=== PATIENT | female | born 1980 | race African-American/Black ===

== ENCOUNTER 2016-11-18 20:45 | Emergency (ER) | payer OTHER ==
[~2016-11-18] VITALS: Ht 149.9 cm; Wt 55.0 kg
[~2016-11-18 20:45] MED LIST: DICY1TAB26 PO; RANI150T PO; ZOFR4TAB3 PO
[2016-11-18 20:46] VITALS: BP 118/59; PULSE 57; RESP 16; TEMP 98; O2SAT 97
[2016-11-19] MEDS ORDERED: ONDANSETRON HCL 4 MG/2 ML VIAL IV ONE (04:30)
[2016-11-19] MEDS ORDERED: AZITHROMYCIN INJ 500 MG in SODIUM CHLOR 0.9% 250 ML INJ 250 ML IV ONE (04:30)
[2016-11-19] MEDS ORDERED: SODIUM CHLOR 0.9% 1000 ML INJ 1,000 ML IV ONE (04:30)
[2016-11-19] MEDS ORDERED: DOXY100C PO (04:33)
[2016-11-19] MEDS ORDERED: ZOFR4TAB3 SL (04:33)
--- NOTE | 2016-11-19 04:34 | PD ---
HPI Chief Complaint: GI Complaint Time Seen by Provider: 03:18 Travel History International Travel<30 days: No Contact w/Intl Traveler<30days: No Traveled to known affect area: No History of Present Illness HPI The patient is a 36-year-old year old female who presents to the [facility] emergency department with a history of reported nausea and vomiting that began 2 days ago. She reports that one day ago she began to have a right earache, headache over her frontal sinuses, congestion, postnasal drip, and sore throat. The patient reports that she's had vomiting 3 today. She denies having any diarrhea. She denies having any known fevers. She reports that her nasal discharge is yellow in color. The patient denies having any recent neck pain, chest pain, shortness of breath, abdominal pain, diarrhea, urinary symptoms, or neurologic symptoms. LMP between 1 and 2 weeks ago. PFSH Past Medical History Narrative Medical The patient's past medical history is significant for acid reflux, headaches, history of kidney stones, history of ovarian cysts. Hx Anticoagulant Therapy: No Asthma: No Blood Disorders: No Anxiety: No Depression: No Heart Rhythm Problems: No Cancer: No Cardiovascular Problems: No High Cholesterol: No Chemotherapy: No Chest Pain: No Congestive Heart Failure: No COPD: No Cerebrovascular Accident: Yes Diabetes: No Diminished Hearing: No Endocrine: No Gastrointestinal Disorders: Yes GERD: Yes Genitourinary: Yes (KIDNEY INFECTION) Headaches: Yes Hypertension: No Immune Disorder: No Kidney Stones: Yes (Kidney infection) Musculoskeletal: Yes (SURGERY-ORIF OF 4TH METATARSAL) Neurologic: Yes Psychiatric: No Reproductive: Yes Respiratory: No Immunizations Current: Yes Migraines: Yes Myocardial Infarction: No Radiation Therapy: No Sleep Apnea: No Thyroid Disease: Yes Tetanus Vaccination: < 5 Years ?: Not LMP: NOW : 3 Para: 3 Miscarriage: 0 : 0 Ovarian Cysts: Yes Tubal Ligation: Yes Past Surgical History Narrative Surgical The patient's past surgical history is significant for an appendectomy, bilateral tubal ligation, right hand surgery, cholecystectomy. AICD: No Appendectomy: Yes Cholecystectomy: Yes Hysterectomy: No Joint Replacement: No Pacemaker: No Other Surgery: No Social History Alcohol Use: No Tobacco Use: No Substance Use: Yes (POT) Allergies-Medications (Allergen,Severity, Reaction): Coded Allergies: Compazine (Verified Allergy, Severe, LEGS SHAKE, 11/19/16) JITTERY LEGS Contrast Media (Verified Allergy, Severe, ITCHING ALL OVER BODY, 11/19/16) Droperidol (Verified Allergy, Severe, JITTERY, 11/19/16) Keflex (Verified Allergy, Severe, DOESN'T REMEMBER, 11/19/16) Phenergan (Verified Allergy, Severe, JITTERY, 11/19/16) Stadol (Verified Allergy, Severe, jitters, 11/19/16) Toradol (Verified Allergy, Severe, JUMPY, 11/19/16) Penicillin (Verified Allergy, Mild, nausea, 11/19/16) Gantrisin (Verified Adverse Reaction, Severe, N&V, 11/19/16) Gaviscon (Verified Adverse Reaction, Severe, N&V, 11/19/16) Reported Meds & Prescriptions Reported Meds & Active Scripts Active Doxycycline Hyclate 100 Mg Cap 100 Mg PO BID Zofran Odt (Ondansetron Odt) 4 Mg Tab 4 Mg SL Q6HR PRN Narrative Medication She denies being on any medications currently. Review of Systems Except as stated in HPI: all other systems reviewed are Neg General / Constitutional: No: Fever Eyes: No: Drainage, Visual changes HENT: Positive: Headaches, Sore Throat, Rhinorrhea, Congestion, No: Neck Stiffness, Neck Pain Cardiovascular: No: Chest Pain or Discomfort Respiratory: Positive: Cough, No: Shortness of Breath Gastrointestinal: Positive: Nausea, Vomiting, No: Diarrhea, Abdominal Pain, Changes in Bowel Habits, Indigestion, Loss of Appetite Genitourinary: No: Urgency, Frequency, Dysuria, Flank Pain Musculoskeletal: Positive: Myalgias, Pain Skin: No Rash Neurologic: No: Weakness, Focal Abnormalities, Change in Mentation, Slurred Speech, Sensory Disturbance Psychiatric: No: Depression Endocrine: No: Polydipsia Hematologic/Lymphatic: No: Easy Bruising Physical Exam Narrative General: The patient is a well-developed well-nourished female in no acute distress. Head and Neck exam: Head is normocephalic atraumatic. Eyes: Pupils are equal round and reactive to light. Ears: Tympanic membranes bilaterally are pearly with a good cone of light, serous fluid present posterior to the right TM. Nose: Midline septum with erythematous edematous nasal mucosa and a clear nasal discharge. Sinuses are tender on palpation over the frontal sinuses. Mouth: Dentition unremarkable. Moist mucus membranes. Posterior oropharynx is erythematous with tonsillar hypertrophy. No exudates. Uvula midline. Airway patent. Neck: No palpable lymphadenopathy. No nuchal rigidity. No thyromegaly. Cardiovascular: Regular rate and rhythm without murmurs, gallops, or rubs. Lungs: Clear to auscultation bilaterally. No wheezes, rhonchi, or rales. Abdomen: Soft, without tenderness to palpation in all 4 quadrants of the abdomen. No guarding, rebound, or rigidity. Normal bowel sounds are audible. Extremities: No clubbing, cyanosis, or edema. 2+ pulses in all 4 extremities. Back: No spinous process tenderness to palpation. No costovertebral angle tenderness to palpation. Neurologic Exam: Cranial nerves 2-12 were intact on exam. Strength is 5/5 in all 4 extremities. No sensory deficits noted. Skin Exam: No rash noted. Intact skin that is warm and dry. Data Data Last Documented VS Vital Signs Date Time Temp Pulse Resp B/P Pulse Ox O2 Delivery O2 Flow Rate FiO2 11/19/16 05:05 18 11/19/16 05:04 61 115/63 98 Room Air 11/18/16 20:46 98.0 Orders Electrocardiogram (11/19/16 01:09) Complete Blood Count With Diff (11/19/16 04:20) Basic Metabolic Panel (Bmp) (11/19/16 04:20) Urinalysis - C+S If Indicated (11/19/16 04:20) Iv Access Insert/Monitor (11/19/16 04:20) Ecg Monitoring (11/19/16 04:20) Oximetry (11/19/16 04:20) Ed Urine Pregnancytest Poc (11/19/16 04:20) Sodium Chlor 0.9% 1000 Ml Inj (Ns 1000 M (11/19/16 04:30) Ondansetron Inj (Zofran Inj) (11/19/16 04:30) Azithromycin Inj (Zithromax Inj) (11/19/16 04:30) Labs Laboratory Tests Test 11/19/16 11/19/16 04:55 05:45 White Blood Count 6.4 TH/MM3 Red Blood Count 4.06 MIL/MM3 Hemoglobin 12.2 GM/DL Hematocrit 36.4 % Mean Corpuscular Volume 89.8 FL Mean Corpuscular Hemoglobin 30.2 PG Mean Corpuscular Hemoglobin 33.6 % Concent Red Cell Distribution Width 12.4 % Platelet Count 240 TH/MM3 Mean Platelet Volume 9.8 FL Neutrophils (%) (Auto) 55.5 % Lymphocytes (%) (Auto) 36.7 % Monocytes (%) (Auto) 6.4 % Eosinophils (%) (Auto) 1.1 % Basophils (%) (Auto) 0.3 % Neutrophils # (Auto) 3.6 TH/MM3 Lymphocytes # (Auto) 2.4 TH/MM3 Monocytes # (Auto) 0.4 TH/MM3 Eosinophils # (Auto) 0.1 TH/MM3 Basophils # (Auto) 0.0 TH/MM3 CBC Comment AUTO DIFF Differential Comment AUTO DIFF CONFIRMED Platelet Estimate NORMAL Platelet Morphology Comment NORMAL Sodium Level 141 MEQ/L Potassium Level 3.4 MEQ/L Chloride Level 107 MEQ/L Carbon Dioxide Level 28.1 MEQ/L Anion Gap 6 MEQ/L Blood Urea Nitrogen 8 MG/DL Creatinine 0.54 MG/DL Estimat Glomerular Filtration 153 ML/MIN Rate Random Glucose 100 MG/DL Calcium Level 8.0 MG/DL MDM Medical Decision Making Medical Screen Exam Complete: Yes Emergency Medical Condition: Yes Medical Record Reviewed: Yes Differential Diagnosis Viral syndrome, versus acute bacterial sinusitis, versus migraine headache, versus tension headache, versus otitis media Narrative Course During the course of the patients emergency department visit, the patients history, examination, and differential diagnosis were reviewed with the patient. The patient had IV access obtained and blood work sent for analysis. The patient was placed on a boat fueler with oximetry and blood pressure monitoring. The patient was provided normal saline 1 L IV fluid bolus, Zofran 4 mg IV for nausea. The patient was given azithromycin 500 mg IV. The patients laboratory studies were reviewed and remarkable for a CBC that is unremarkable. Basic metabolic profile unremarkable. The patient will be discharged home with a prescription for doxycycline, and Zofran. The patient is resting comfortably and feels better, is alert and in no distress. The patients results and examination findings were discussed with the patient. The repeat examination is unremarkable and benign. The history, exam, diagnostic testing, and current condition do not suggest any significant pathology to warrant further testing, continued ED treatment, admission, or surgical evaluation at this point. The vital signs have been stable. The patient does not have uncontrollable pain, intractable vomiting, or other significant symptoms. The patient's condition is stable and appropriate for discharge. The patient will pursue further outpatient evaluation with a primary care physician or other designated or consulting physician as indicated in the discharge instructions. The patient expressed understanding and was agreeable with this plan. Diagnosis Primary Impression: Acute sinusitis Qualified Code: J01.10 - Acute frontal sinusitis, recurrence not specified Additional Impressions: Acute pharyngitis Qualified Code: J02.9 - Acute pharyngitis, unspecified etiology Vomiting Qualified Code: R11.2 - Non-intractable vomiting with nausea, unspecified vomiting type Referrals: Primary Care Physician 3 days Patient Instructions: Acute Nausea and Vomiting (ED), General Instructions, Sinusitis (ED) Med/Other Pt SpecificInfo: Prescription(s) given Scripts Doxycycline Hyclate 100 Mg Lyp274 Mg PO BID #20 CAP Ref 0 Prov:Nadya Viera MD 11/19/16 Ondansetron Odt (Zofran Odt)4 Mg Tab4 Mg SL Q6HR PRN (Nausea/Vomiting) #10 TAB Ref 0 Prov:Nadya Viera MD 11/19/16 Disposition: 01 DISCHARGE HOME Condition: Stable Nadya Viera MD Nov 19, 2016 04:34
[2016-11-19 05:04] VITALS: BP 115/63; PULSE 61; RESP 18; O2SAT 98
[2016-11-19 05:04] LABS: AUTOMATED NEUTROPHIL # 3.6 TH/MM3 (1.8-7.7); BASOPHIL % 0.3 % (0.0-2.0); EOSINOPHIL # 0.1 TH/MM3 (0-0.4); EOSINOPHIL % 1.1 % (0.0-4.0); HEMATOCRIT 36.4 % (35.0-46.0); LYMPH % 36.7 % (9.0-44.0); LYMPHOCYTE # 2.4 TH/MM3 (1.0-4.8); MEAN CELL VOLUME 89.8 FL (80.0-100.0); MEAN CORPUSCULAR HEMOGLOBIN 30.2 PG (27.0-34.0); MEAN CORPUSCULAR HGB CONC 33.6 % (32.0-36.0); MONO % 6.4 % (0.0-8.0); NEUT % 55.5 % (16.0-70.0); PLATELET COUNT 240 TH/MM3 (150-450); RED BLOOD COUNT 4.06 MIL/MM3 (4.00-5.30); RED CELL DISTRIBUTION WIDTH 12.4 % (11.6-17.2); WHITE BLOOD COUNT 6.4 TH/MM3 (4.0-11.0)
[2016-11-19 05:05] VITALS: RESP 18
[2016-11-19 05:29] LABS: HEMO FLAGS AUTO DIFF; PLATELET ESTIMATE SMEAR NORMAL (NORMAL); PLATELET MORPHOLOGY NORMAL (NORMAL)
[2016-11-19 05:30] LABS: SCAN/DIFF AUTO DIFF CONFIRMED
[2016-11-19 06:22] LABS: BICARBONATE 28.1 MEQ/L (21.0-32.0); POTASSIUM 3.4 MEQ/L (3.5-5.1)
--- NOTE | 2016-11-19 13:57 | EKG ---
Date Performed: 11/19/2016 Time Performed: 01:30:41 PTAGE: 36 years EKG: SINUS BRADYCARDIA BORDERLINE ECG NO PREVIOUS TRACING DOCTOR: Juan Luis Ibarra Interpretating Date/Time 11/19/2016 13:55:37
== END 2016-11-19 06:54 | disposition home or self-care (01) ==
LOC: NEPC 20:45
DX: J01.90 Acute sinusitis, unspecified (principal); J02.9 Acute pharyngitis, unspecified; E07.9 Disorder of thyroid, unspecified; F12.90 Cannabis use, unspecified, uncomplicated
CPT/HCPCS: 80048; 84703; 85025; 93005; 96365; 96375; 99284; J0456; J2405; J7030; J7050

== ENCOUNTER 2016-12-17 22:06 | Emergency (ER) | payer OTHER ==
[~2016-12-17] VITALS: Ht 149.9 cm; Wt 58.0 kg
[~2016-12-17 22:06] MED LIST changes: -DICY1TAB26 PO; +DOXY100C PO; -RANI150T PO; -ZOFR4TAB3 PO; +ZOFR4TAB3 SL
[2016-12-17 22:11] VITALS: BP 100/66; PULSE 71; RESP 16; TEMP 98; O2SAT 99
== END 2016-12-17 23:16 | disposition left against medical advice (07) ==
LOC: NED 22:06
DX: R68.89 Other general symptoms and signs (principal); Z53.21 Procedure and treatment not carried out due to patient leaving prior to being seen by health care provider
CPT/HCPCS: 99281

== ENCOUNTER 2016-12-21 19:59 | Emergency (ER) | payer OTHER ==
[~2016-12-21] VITALS: Ht 149.9 cm; Wt 58.0 kg
[2016-12-21 20:02] VITALS: BP 99/53; PULSE 68; RESP 16; TEMP 97.8; O2SAT 98
[2016-12-21] MEDS ORDERED: SODIUM CHLOR 0.9% 1000 ML INJ 1,000 ML IV SCH (23:25)
[2016-12-21] MEDS ORDERED: SODIUM CHLORIDE 0.9% FLUSH 5 ML FLUSH IVF PRN (23:30)
[2016-12-21] MEDS ORDERED: ONDANSETRON HCL 4 MG/2 ML VIAL IVP ONE (23:30)
[2016-12-21] MEDS ORDERED: diphenhydrAMINE HCL 50 MG/ML VIAL IV PUSH ONE (23:30)
[2016-12-22 00:18] LABS: BASOPHIL % 0.4 % (0.0-2.0); EOSINOPHIL % 0.5 % (0.0-4.0); HEMATOCRIT 40.2 % (35.0-46.0); HEMO FLAGS DIFF FINAL; LYMPH % 41.6 % (9.0-44.0); LYMPHOCYTE # 3.1 TH/MM3 (1.0-4.8); MEAN CELL VOLUME 89.8 FL (80.0-100.0); MEAN CORPUSCULAR HEMOGLOBIN 31.4 PG (27.0-34.0); MEAN CORPUSCULAR HGB CONC 34.9 % (32.0-36.0); MONO % 4.6 % (0.0-8.0); NEUT % 52.9 % (16.0-70.0); PLATELET COUNT 210 TH/MM3 (150-450); RED BLOOD COUNT 4.48 MIL/MM3 (4.00-5.30); RED CELL DISTRIBUTION WIDTH 12.7 % (11.6-17.2); WHITE BLOOD COUNT 7.5 TH/MM3 (4.0-11.0)
[2016-12-22 00:29] LABS: ANION GAP 7 MEQ/L (5-15); AST (GOT) 13 U/L (15-37); BLOOD UREA NITROGEN 11 MG/DL (7-18); CHLORIDE 102 MEQ/L (98-107); GLOMERULAR FILTRATION RATE 113 ML/MIN (>89); POTASSIUM 3.3 MEQ/L (3.5-5.1); SODIUM (NA) 138 MEQ/L (136-145)
[2016-12-22 00:32] LABS: ALKALINE PHOSPHATASE 79 U/L (45-117); ALT (GPT) 17 U/L (10-53); TOTAL BILIRUBIN ADULT 0.3 MG/DL (0.2-1.0)
[2016-12-22 01:16] VITALS: O2SAT 100
[2016-12-22 01:20] VITALS: BP 110/53; PULSE 76; RESP 18; TEMP 98.4; O2SAT 96
[2016-12-22] MEDS ORDERED: diphenhydrAMINE HCL 25 MG CAP PO ONE (01:30)
[2016-12-22 02:00] LABS: BLOOD, URINE NEG (NEG); GLUCOSE,URINE NEG (NEG); KETONE, URINE NEG (NEG); MUCUS URINE FEW /lpf (OCC); NITRITE,URINE NEG (NEG); PH, URINE 6.5 (5.0-8.5); SQUAMOUS EPITHELIAL CELL URINE <1 /hpf (0-5); URINE COLOR YELLOW (YELLW/STRAW)
--- NOTE | 2016-12-22 02:25 | PD ---
HPI Chief Complaint: GI Complaint Time Seen by Provider: 23:21 Travel History International Travel<30 days: No Contact w/Intl Traveler<30days: No Traveled to known affect area: No History of Present Illness HPI Patient is a 36-year-old female presents emergency department for recurrent nausea and vomiting which is been gradually worsening over the past few days. Patient states she has a history of bowel problems including reflux in which case she gets fairly nauseous from. Patient states she's been taking Zofran at home without significant relief. She has not tried anything else that she is allergic to Phenergan and Compazine. Patient denies any abdominal pain and vaginal bleeding vaginal discharge no possibility. Patient was here a few days ago left without being seen. She has not followed up with her primary care physician for the symptoms. PFSH Past Medical History Hx Anticoagulant Therapy: No Asthma: No Blood Disorders: No Anxiety: No Depression: No Heart Rhythm Problems: No Cancer: No Cardiovascular Problems: No High Cholesterol: No Chemotherapy: No Chest Pain: No Congestive Heart Failure: No COPD: No Cerebrovascular Accident: Yes Diabetes: No Diminished Hearing: No Endocrine: No Gastrointestinal Disorders: Yes GERD: Yes Genitourinary: Yes (KIDNEY INFECTION) Headaches: Yes Hypertension: No Immune Disorder: No Kidney Stones: Yes (Kidney infection) Musculoskeletal: Yes (SURGERY-ORIF OF 4TH METATARSAL) Neurologic: Yes Psychiatric: No Reproductive: Yes Respiratory: No Immunizations Current: Yes Migraines: Yes Myocardial Infarction: No Radiation Therapy: No Sleep Apnea: No Thyroid Disease: Yes Tetanus Vaccination: < 5 Years ?: Not LMP: 12/12/16 : 3 Para: 3 Miscarriage: 0 : 0 Ovarian Cysts: Yes Tubal Ligation: Yes Past Surgical History AICD: No Appendectomy: Yes Cholecystectomy: Yes Hysterectomy: No Joint Replacement: No Pacemaker: No Other Surgery: No Social History Alcohol Use: No Tobacco Use: No Substance Use: Yes (POT) Allergies-Medications (Allergen,Severity, Reaction): Coded Allergies: Compazine (Verified Allergy, Severe, LEGS SHAKE, 12/21/16) JITTERY LEGS Contrast Media (Verified Allergy, Severe, ITCHING ALL OVER BODY, 12/21/16) Droperidol (Verified Allergy, Severe, JITTERY, 12/21/16) Keflex (Verified Allergy, Severe, DOESN'T REMEMBER, 12/21/16) Phenergan (Verified Allergy, Severe, JITTERY, 12/21/16) Stadol (Verified Allergy, Severe, jitters, 12/21/16) Toradol (Verified Allergy, Severe, JUMPY, 12/21/16) Penicillin (Verified Allergy, Mild, nausea, 12/21/16) Gantrisin (Verified Adverse Reaction, Severe, N&V, 12/21/16) Gaviscon (Verified Adverse Reaction, Severe, N&V, 12/21/16) Reported Meds & Prescriptions Reported Meds & Active Scripts Active Zofran Odt (Ondansetron Odt) 4 Mg Tab 4 Mg SL Q6HR PRN Review of Systems Except as stated in HPI: all other systems reviewed are Neg Physical Exam Narrative GENERAL: Well-developed well-nourished no apparent distressIN: Warm and dry. HEAD: Atraumatic. Normocephalic. EYES: Pupils equal and round. No scleral icterus. No injection or drainage. ENT: No nasal bleeding or discharge. Mucous membranes pink and moist. NECK: Trachea midline. No JVD. CARDIOVASCULAR: Regular rate and rhythm. No murmur appreciated. RESPIRATORY: No accessory muscle use. Clear to auscultation. Breath sounds equal bilaterally. GASTROINTESTINAL: Abdomen soft, non-tender, nondistended. Hepatic and splenic margins not palpable. MUSCULOSKELETAL: No obvious deformities. No clubbing. No cyanosis. No edema. NEUROLOGICAL: Awake and alert. No obvious cranial nerve deficits. Motor grossly within normal limits. Normal speech. PSYCHIATRIC: Appropriate mood and affect; insight and judgment normal. Data Data Last Documented VS Vital Signs Date Time Temp Pulse Resp B/P Pulse Ox O2 Delivery O2 Flow Rate FiO2 12/22/16 01:20 98.4 76 18 110/53 96 Room Air Orders Complete Blood Count With Diff (12/21/16 23:25) Comprehensive Metabolic Panel (12/21/16 23:25) Lipase (12/21/16 23:25) Ua Includes Microscopic (12/21/16 23:25) Iv Access Insert/Monitor (12/21/16 23:25) Ecg Monitoring (12/21/16 23:25) Oximetry (12/21/16 23:25) Ondansetron Inj (Zofran Inj) (12/21/16 23:30) Sodium Chlor 0.9% 1000 Ml Inj (Ns 1000 M (12/21/16 23:25) Sodium Chloride 0.9% Flush (Ns Flush) (12/21/16 23:30) Electrocardiogram (12/21/16 23:25) Ed Urine Pregnancytest Poc (12/21/16 23:25) Diphenhydramine Inj (Benadryl Inj) (12/21/16 23:30) Cath For Specimen (12/22/16 00:59) Diphenhydramine (Benadryl) (12/22/16 01:30) Labs Laboratory Tests Test 12/21/16 12/22/16 23:30 01:35 White Blood Count 7.5 TH/MM3 Red Blood Count 4.48 MIL/MM3 Hemoglobin 14.1 GM/DL Hematocrit 40.2 % Mean Corpuscular Volume 89.8 FL Mean Corpuscular Hemoglobin 31.4 PG Mean Corpuscular Hemoglobin 34.9 % Concent Red Cell Distribution Width 12.7 % Platelet Count 210 TH/MM3 Mean Platelet Volume 9.1 FL Neutrophils (%) (Auto) 52.9 % Lymphocytes (%) (Auto) 41.6 % Monocytes (%) (Auto) 4.6 % Eosinophils (%) (Auto) 0.5 % Basophils (%) (Auto) 0.4 % Neutrophils # (Auto) 4.0 TH/MM3 Lymphocytes # (Auto) 3.1 TH/MM3 Monocytes # (Auto) 0.3 TH/MM3 Eosinophils # (Auto) 0.0 TH/MM3 Basophils # (Auto) 0.0 TH/MM3 CBC Comment DIFF FINAL Differential Comment Sodium Level 138 MEQ/L Potassium Level 3.3 MEQ/L Chloride Level 102 MEQ/L Carbon Dioxide Level 29.0 MEQ/L Anion Gap 7 MEQ/L Blood Urea Nitrogen 11 MG/DL Creatinine 0.70 MG/DL Estimat Glomerular Filtration 113 ML/MIN Rate Random Glucose 99 MG/DL Calcium Level 9.8 MG/DL Total Bilirubin 0.3 MG/DL Aspartate Amino Transf 13 U/L (AST/SGOT) Alanine Aminotransferase 17 U/L (ALT/SGPT) Alkaline Phosphatase 79 U/L Total Protein 7.8 GM/DL Albumin 4.2 GM/DL Lipase 143 U/L Urine Color YELLOW Urine Turbidity CLEAR Urine pH 6.5 Urine Specific [place] 1.015 Urine Protein NEG mg/dL Urine Glucose (UA) NEG mg/dL Urine Ketones NEG mg/dL Urine Occult Blood NEG Urine Nitrite NEG Urine Bilirubin NEG Urine Urobilinogen LESS THAN 2.0 MG/DL Urine Leukocyte Esterase NEG Urine RBC LESS THAN 1 /hpf Urine WBC LESS THAN 1 /hpf Urine Squamous Epithelial <1 /hpf Cells Urine Mucus FEW /lpf MDM Medical Decision Making Medical Screen Exam Complete: Yes Emergency Medical Condition: Yes Differential Diagnosis Nausea vomiting, cyclic vomiting syndrome, reflux, ulcers, . Narrative Course Patient was roomed in the emergency department, she appears well in no apparent distress. She was given Zofran as well as Benadryl for nausea control. Patient did have some pruritus after these medicines and she was given an additional dose of Benadryl by mouth. On my revisit she is scratching but is protecting her airway and has no rash. She requests discharge. CBC BMP urine test and urinalysis are all reassuring. Discussed with her need follow-up primary care physician and return to ED criteria. Diagnosis Primary Impression: Nausea Disposition: 01 DISCHARGE HOME Condition: Stable Mo Holguin MD Dec 22, 2016 02:25
--- NOTE | 2016-12-22 13:02 | EKG ---
Date Performed: 12/21/2016 Time Performed: 23:52:57 PTAGE: 36 years EKG: SINUS BRADYCARDIA LOW QRS VOLTAGE IN PRECORDIAL LEADS BORDERLINE ECG Compared to prior trac ing no significant change PREVIOUS TRACING : 11/19/2016 01.30 DOCTOR: Jorge Wynn Interpretating Date/Time 12/22/2016 12:56:59
== END 2016-12-22 03:31 | disposition home or self-care (01) ==
LOC: NEPE 19:59
DX: F12.90 Cannabis use, unspecified, uncomplicated (principal); R11.0 Nausea; R94.31 Abnormal electrocardiogram [ECG] [EKG]
CPT/HCPCS: 80053; 81001; 83690; 84703; 85025; 93005; 96361; 96374; 96375; 99284; J1200; J2405; J7030; P9612

== ENCOUNTER 2017-02-26 18:08 | Emergency (ER) | payer OTHER ==
[~2017-02-26] VITALS: Ht 149.9 cm; Wt 58.0 kg
[~2017-02-26 18:08] MED LIST changes: -DOXY100C PO
[2017-02-26 18:10] VITALS: BP 113/69; PULSE 86; RESP 16; TEMP 97.8; O2SAT 100
--- NOTE | 2017-02-26 18:17 | PD ---
Physical Exam Date Seen by Provider: Feb 26, 2017 Time Seen by Provider: 18:13 Narrative Pt is a 36 year old female presenting to the ED with c/o nausea and vomiting and epigastric abdominal pain. She attributed it to eating pasta with sauce 2 days ago. Symptoms do not usually last this long. Her grandson has also had similar symptoms. Pt is followed by Dr. Derick Rosenthal. VSS. Awaiting bed placement. Data Data Last Documented VS Vital Signs Date Time Temp Pulse Resp B/P Pulse Ox O2 Delivery O2 Flow Rate FiO2 02/26/17 18:10 97.8 86 16 113/69 100 Room Air [facility] Supervised Visit with LISA: Kailey Millan Feb 26, 2017 18:17
--- NOTE | 2017-02-26 18:39 | PD ---
HPI . nausea for 2 days Chief Complaint: GI Complaint Time Seen by Provider: 18:35 Travel History International Travel<30 days: No Contact w/Intl Traveler<30days: No Traveled to known affect area: No History of Present Illness HPI 36-year-old female with history of acid reflux here with complaints of nausea and occasional vomiting for the past 2 days. Patient says that she is not supposed to eat spaghetti, but did that 2 days ago and has had nausea ever since. She complains of intermittent nausea and vomiting. She usually takes Zofran for her nausea but recently ran out this morning at 8 AM. Since then she 's had a few episodes of vomiting that she reports is just water because she had recently drank some. She denies any abdominal pain, diarrhea or other GI issues. She denies any chest pain or other symptoms. She needs a refill on her zofran. She does not complain of any throat pain etc. Her only complaint when I examined her is nausea and intermittent vomiting. PFSH Past Medical History Hx Anticoagulant Therapy: No Asthma: No Blood Disorders: No Anxiety: No Depression: No Heart Rhythm Problems: No Cancer: No Cardiovascular Problems: No High Cholesterol: No Chemotherapy: No Chest Pain: No Congestive Heart Failure: No COPD: No Cerebrovascular Accident: Yes Diabetes: No Diminished Hearing: No Endocrine: No Gastrointestinal Disorders: Yes GERD: Yes Genitourinary: Yes (KIDNEY INFECTION) Headaches: Yes Hypertension: No Immune Disorder: No Kidney Stones: Yes (Kidney infection) Musculoskeletal: Yes (SURGERY-ORIF OF 4TH METATARSAL) Neurologic: Yes Psychiatric: No Reproductive: Yes Respiratory: No (NON SMOKER) Immunizations Current: Yes Migraines: Yes Myocardial Infarction: No Radiation Therapy: No Sleep Apnea: No Thyroid Disease: Yes ?: Not LMP: 25 FEBRUARY 2017 : 3 Para: 3 Miscarriage: 0 : 0 Ovarian Cysts: Yes Tubal Ligation: Yes Past Surgical History AICD: No Appendectomy: Yes Cholecystectomy: Yes Hysterectomy: No Joint Replacement: No Pacemaker: No Other Surgery: No Social History Alcohol Use: No Tobacco Use: No Substance Use: Yes (POT) Allergies-Medications (Allergen,Severity, Reaction): Coded Allergies: Compazine (Verified Allergy, Severe, LEGS SHAKE, 02/26/17) JITTERY LEGS Contrast Media (Verified Allergy, Severe, ITCHING ALL OVER BODY, 02/26/17) Droperidol (Verified Allergy, Severe, JITTERY, 02/26/17) Keflex (Verified Allergy, Severe, DOESN'T REMEMBER, 02/26/17) Phenergan (Verified Allergy, Severe, JITTERY, 02/26/17) Stadol (Verified Allergy, Severe, jitters, 02/26/17) Toradol (Verified Allergy, Severe, JUMPY, 02/26/17) Penicillin (Verified Allergy, Mild, nausea, 02/26/17) Gantrisin (Verified Adverse Reaction, Severe, N&V, 02/26/17) Gaviscon (Verified Adverse Reaction, Severe, N&V, 02/26/17) Reported Meds & Prescriptions Reported Meds & Active Scripts Active Zofran Odt (Ondansetron Odt) 4 Mg Tab 4 Mg SL Q8HR PRN Zofran Odt (Ondansetron Odt) 4 Mg Tab 4 Mg SL Q6HR PRN Review of Systems General / Constitutional: No: Fever Eyes: No: Visual changes HENT: No: Headaches Cardiovascular: No: Chest Pain or Discomfort Respiratory: No: Shortness of Breath Gastrointestinal: Positive: Nausea, No: Abdominal Pain Genitourinary: No: Dysuria Musculoskeletal: No: Pain Skin: No Rash Neurologic: No: Weakness Psychiatric: No: Depression Endocrine: No: Polydipsia Hematologic/Lymphatic: No: Easy Bruising Physical Exam Narrative GENERAL: AAO x 3, no acute distress, Well-nourished, well-developed patient. SKIN: Warm and dry. No visible rashes or bruising. Skin turgor within normal limits HEAD: Normocephalic and atraumatic. EYES: No scleral icterus. No injection or drainage. EOM intact, PERRLA ENT: No nasal drainage noted. Mucous membranes pink. Airway patent. Moist mucous membranes. Posterior pharynx normal. NECK: Supple, trachea midline. No JVD. CARDIOVASCULAR: Regular rate and rhythm without murmurs, gallops, or rubs. RESPIRATORY: Breath sounds equal bilaterally. No accessory muscle use. No rhonchi or rales. GASTROINTESTINAL: Abdomen soft, non-tender, nondistended. EXTREMITIES: No cyanosis or edema. BACK: Nontender without obvious deformity. No CVA tenderness. PSYCH: AAO x 3, normal affect. Data Data Last Documented VS Vital Signs Date Time Temp Pulse Resp B/P Pulse Ox O2 Delivery O2 Flow Rate FiO2 02/26/17 18:10 97.8 86 16 113/69 100 Room Air Orders Ondansetron Inj (Zofran Inj) (02/26/17 18:45) MDM Medical Decision Making Medical Screen Exam Complete: Yes Emergency Medical Condition: Yes Medical Record Reviewed: Yes Differential Diagnosis Nausea, reflux, less likely acute abdomen Narrative Course 36-year-old female with history of acid reflux here with complaints of nausea and occasional vomiting for the past 2 days. Patient says that she is not supposed to eat spaghetti, but did that 2 days ago and has had nausea ever since. She complains of intermittent nausea and vomiting. She usually takes Zofran for her nausea but recently ran out this morning at 8 AM. Since then she 's had a few episodes of vomiting that she reports is just water because she had recently drank some. She denies any abdominal pain, diarrhea or other GI issues. She denies any chest pain or other symptoms. She needs a refill on her zofran. Patient seen and examined. Exam is unremarkable. She does not have any signs of any acute intra-abdominal issues. There is no evidence of dehydration. I recommend some Zofran in the emergency department. I will provide her with a refill of Zofran upon discharge. I discussed my plan with her and she is in agreement. Advise follow-up with primary care provider. Patient verbalized understanding of instructions, questions were answered, and thanked me for their care. I advised them if their condition worsens, please return to the nearest emergency room for further care. Diagnosis Primary Impression: Nausea Patient Instructions: General Instructions Additional Instructions: Please return to emergency department if your symptoms return or worsen. Follow up with your primary care provider. Take medications as prescribed. Med/Other Pt SpecificInfo: Prescription(s) given Scripts Ondansetron Odt (Zofran Odt)4 Mg Tab4 Mg SL Q8HR PRN (Nausea/Vomiting) #15 TAB Ref 0 Prov:Mo Holguin MD 02/26/17 Disposition: 01 DISCHARGE HOME Condition: Stable Leyda Ovalles Feb 26, 2017 18:39 Leyda Ovalles Feb 26, 2017 18:39
[2017-02-26] MEDS ORDERED: ZOFR4TAB3 SL (18:44)
[2017-02-26] MEDS ORDERED: ONDANSETRON HCL 4 MG/2 ML VIAL IM ONE (18:45)
== END 2017-02-26 19:07 | disposition home or self-care (01) ==
LOC: NEPK 18:08
DX: R11.2 Nausea with vomiting, unspecified (principal); K21.9 Gastro-esophageal reflux disease without esophagitis; Z86.73 Personal history of transient ischemic attack (TIA), and cerebral infarction without residual deficits
CPT/HCPCS: 96372; 99283; J2405

== ENCOUNTER 2017-03-17 20:56 | Emergency (ER) | payer OTHER ==
[~2017-03-17] VITALS: Ht 167.6 cm; Wt 65.0 kg
[2017-03-17 20:58] VITALS: BP 94/55; PULSE 75; RESP 16; TEMP 98.6; O2SAT 98
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
[2017-03-17] MEDS ORDERED: ONDANSETRON ODT 4 MG TAB PO ONE (22:00)
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
[2017-03-17] MEDS ORDERED: SODIUM CHLOR 0.9% 1000 ML INJ 1,000 ML IV ONE (22:30)
[2017-03-17] MEDS ORDERED: diphenhydrAMINE HCL 50 MG/ML VIAL IV PUSH ONE (22:30)
[2017-03-17] MEDS ORDERED: METOCLOPRAMIDE HCL 10 MG/2 ML VIAL IV PUSH ONE (22:30)
== END 2017-03-18 00:51 | disposition home or self-care (01) ==
LOC: NEPD 20:56
DX: S60.221A Contusion of right hand, initial encounter (principal); R11.2 Nausea with vomiting, unspecified; W22.8XXA Striking against or struck by other objects, initial encounter
CPT/HCPCS: 73130; 96361; 96374; 96375; 99284; J1200; J2765; J7030

== ENCOUNTER 2017-03-20 17:13 | Emergency (ER) | payer OTHER ==
[~2017-03-20] VITALS: Ht 149.9 cm; Wt 58.0 kg
[2017-03-20 17:16] VITALS: BP 129/63; PULSE 84; RESP 20; TEMP 98.9; O2SAT 97
--- NOTE | 2017-03-20 19:38 | PD ---
HPI Chief Complaint: GI Complaint Time Seen by Provider: 19:38 Travel History International Travel<30 days: No Contact w/Intl Traveler<30days: No Traveled to known affect area: No History of Present Illness HPI 36 year-old female presents to the emergency department for evaluation nausea and vomiting. Patient states this has been ongoing for the last 5 days. Patient has been seen several times in the emergency department for evaluation of nausea and vomiting, diagnosis of gastritis. Patient has been worked out patient for this by gastroenterology. She states she's had her appendix removed as well as her gallbladder. She reports absolutely no abdominal pain area patient was here 2 days ago and was given Reglan which helped alleviate her symptoms for the remainder of the day. She denies any hematemesis. No bowel or bladder symptoms. She does smoke marijuana regularly. She has no symptoms to report. PFSH Past Medical History Hx Anticoagulant Therapy: No Asthma: No Blood Disorders: No Anxiety: No Depression: No Heart Rhythm Problems: No Cancer: No Cardiovascular Problems: No High Cholesterol: No Chemotherapy: No Chest Pain: No Congestive Heart Failure: No COPD: No Cerebrovascular Accident: Yes Diabetes: No Diminished Hearing: No Endocrine: No Gastrointestinal Disorders: Yes GERD: Yes Genitourinary: Yes (KIDNEY INFECTION) Headaches: Yes Hypertension: No Immune Disorder: No Kidney Stones: Yes (Kidney infection) Musculoskeletal: Yes (SURGERY-ORIF OF 4TH METATARSAL) Neurologic: Yes Psychiatric: No Reproductive: Yes Immunizations Current: Yes Migraines: Yes Myocardial Infarction: No Radiation Therapy: No Sleep Apnea: No Thyroid Disease: Yes ?: Not LMP: 03/20/17 : 3 Para: 3 Miscarriage: 0 : 0 Ovarian Cysts: Yes Tubal Ligation: Yes Past Surgical History AICD: No Appendectomy: Yes Cholecystectomy: Yes Hysterectomy: No Joint Replacement: No Pacemaker: No Other Surgery: No Social History Alcohol Use: No Tobacco Use: No Substance Use: Yes (POT) Allergies-Medications (Allergen,Severity, Reaction): Coded Allergies: Compazine (Verified Allergy, Severe, LEGS SHAKE, 03/20/17) JITTERY LEGS Contrast Media (Verified Allergy, Severe, ITCHING ALL OVER BODY, 03/20/17) Droperidol (Verified Allergy, Severe, JITTERY, 03/20/17) Keflex (Verified Allergy, Severe, DOESN'T REMEMBER, 03/20/17) Phenergan (Verified Allergy, Severe, JITTERY, 03/20/17) Stadol (Verified Allergy, Severe, jitters, 03/20/17) Toradol (Verified Allergy, Severe, JUMPY, 03/20/17) Penicillin (Verified Allergy, Mild, nausea, 03/20/17) Gantrisin (Verified Adverse Reaction, Severe, N&V, 03/20/17) Gaviscon (Verified Adverse Reaction, Severe, N&V, 03/20/17) Reported Meds & Prescriptions Reported Meds & Active Scripts Active Zofran Odt (Ondansetron Odt) 4 Mg Tab 4 Mg SL Q6HR PRN Review of Systems Except as stated in HPI: all other systems reviewed are Neg Physical Exam Narrative GENERAL: Well-nourished female patient, ambulatory and in no acute distress SKIN: Focused skin assessment warm/dry. HEAD: Atraumatic. Normocephalic. EYES: Pupils equal and round. No scleral icterus. No injection or drainage. ENT: No nasal bleeding or discharge. Mucous membranes pink and moist. NECK: Trachea midline. No JVD. CARDIOVASCULAR: Regular rate and rhythm. No murmur appreciated. RESPIRATORY: No accessory muscle use. Clear to auscultation. Breath sounds equal bilaterally. GASTROINTESTINAL: Abdomen soft, non-tender, nondistended. Hepatic and splenic margins not palpable. MUSCULOSKELETAL: No obvious deformities. No clubbing. No cyanosis. No edema. Florencio bandage on the right hand. NEUROLOGICAL: Awake and alert. No obvious cranial nerve deficits. Motor grossly within normal limits. Normal speech. PSYCHIATRIC: Appropriate mood and affect; insight and judgment normal. Data Data Last Documented VS Vital Signs Date Time Temp Pulse Resp B/P Pulse Ox O2 Delivery O2 Flow Rate FiO2 03/20/17 17:16 98.9 84 20 129/63 97 Room Air Orders Iv Access Insert/Monitor (03/20/17 19:37) Complete Blood Count With Diff (03/20/17 19:37) Comprehensive Metabolic Panel (03/20/17 19:37) Lipase (03/20/17 19:37) Urinalysis - C+S If Indicated (03/20/17 19:37) Ed Urine Pregnancytest Poc (03/20/17 19:37) Sodium Chlor 0.9% 1000 Ml Inj (Ns 1000 M (03/20/17 19:45) Ondansetron Inj (Zofran Inj) (03/20/17 19:45) Metoclopramide Inj (Reglan Inj) (03/20/17 19:45) Diphenhydramine Inj (Benadryl Inj) (03/20/17 19:45) MDM Medical Decision Making Medical Screen Exam Complete: Yes Emergency Medical Condition: Yes Medical Record Reviewed: Yes Differential Diagnosis nausea vomiting versus gastritis versus esophagitis versus cannabinoid induced gastroparesis Narrative Course 36 year-old female presents to the emergency department for evaluation nausea and vomiting. Patient appears without distress. She has been vomiting here in the emergency department. Abdominal exam is benign. Patient is given IV fluid , Reglan, Zofran, Benadryl. Lab work is sent as the patient has had continuous nausea and vomiting for electrolyte evaluation. Pending no acute lab abnormality and resolution of symptoms here in the emergency department, patient will be discharged home to follow-up outpatient with primary care provider and hospital cleaner. Diagnosis Primary Impression: Nausea & vomiting Qualified Code: R11.2 - Nausea and vomiting, intractability of vomiting not specified, unspecified vomiting type Referrals: Mechanical Design Technician Primary Care Physician Patient Instructions: Diet for Ulcers and Gastritis (ED), Gastritis (ED), General Instructions Additional Instructions: Follow-up with a primary care provider Seek gastroenterology avoid acidic and abrasive foods Return immediately with any acute worsening symptoms Med/Other Pt SpecificInfo: Prescription(s) given Scripts Metoclopramide (Reglan)10 Mg Tab10 Mg PO QID PRN (NAUSEA OR VOMITING) #20 TAB Ref 0 Prov:Khadra Ocampo 03/20/17 Disposition: 01 DISCHARGE HOME Condition: Stable Khadra Ocampo March 20, 2017 19:38
[2017-03-20] MEDS ORDERED: ONDANSETRON HCL 4 MG/2 ML VIAL IV PUSH ONE (19:45)
[2017-03-20] MEDS ORDERED: diphenhydrAMINE HCL 50 MG/ML VIAL IV PUSH ONE (19:45)
[2017-03-20] MEDS ORDERED: SODIUM CHLOR 0.9% 1000 ML INJ 1,000 ML IV ONE ×2 (19:45→20:30)
[2017-03-20] MEDS ORDERED: METOCLOPRAMIDE HCL 10 MG/2 ML VIAL IV PUSH ONE (19:45)
[2017-03-20] MEDS ORDERED: REGL10TA5 PO (20:14)
--- NOTE | 2017-03-20 20:39 | PD ---
Physical Exam Date Seen by Provider: March 20, 2017 Data Data Last Documented VS Vital Signs Date Time Temp Pulse Resp B/P Pulse Ox O2 Delivery O2 Flow Rate FiO2 03/20/17 17:16 98.9 84 20 129/63 97 Room Air Orders Iv Access Insert/Monitor (03/20/17 19:37) Complete Blood Count With Diff (03/20/17 19:37) Comprehensive Metabolic Panel (03/20/17 19:37) Lipase (03/20/17 19:37) Urinalysis - C+S If Indicated (03/20/17 19:37) Ed Urine Pregnancytest Poc (03/20/17 19:37) Sodium Chlor 0.9% 1000 Ml Inj (Ns 1000 M (03/20/17 19:45) Ondansetron Inj (Zofran Inj) (03/20/17 19:45) Metoclopramide Inj (Reglan Inj) (03/20/17 19:45) Diphenhydramine Inj (Benadryl Inj) (03/20/17 19:45) Sodium Chlor 0.9% 1000 Ml Inj (Ns 1000 M (03/20/17 20:30) Potassium Chloride Eff (K-Lyte Cl Eff) (03/20/17 22:00) Labs Laboratory Tests Test 03/20/17 03/20/17 20:30 20:40 White Blood Count 4.7 TH/MM3 Red Blood Count 4.47 MIL/MM3 Hemoglobin 13.4 GM/DL Hematocrit 39.8 % Mean Corpuscular Volume 88.9 FL Mean Corpuscular Hemoglobin 30.0 PG Mean Corpuscular Hemoglobin 33.8 % Concent Red Cell Distribution Width 12.7 % Platelet Count 189 TH/MM3 Mean Platelet Volume 8.4 FL Neutrophils (%) (Auto) 52.6 % Lymphocytes (%) (Auto) 37.0 % Monocytes (%) (Auto) 8.5 % Eosinophils (%) (Auto) 1.4 % Basophils (%) (Auto) 0.5 % Neutrophils # (Auto) 2.5 TH/MM3 Lymphocytes # (Auto) 1.7 TH/MM3 Monocytes # (Auto) 0.4 TH/MM3 Eosinophils # (Auto) 0.1 TH/MM3 Basophils # (Auto) 0.0 TH/MM3 CBC Comment DIFF FINAL Differential Comment Sodium Level 139 MEQ/L Potassium Level 3.4 MEQ/L Chloride Level 101 MEQ/L Carbon Dioxide Level 30.3 MEQ/L Anion Gap 8 MEQ/L Blood Urea Nitrogen 7 MG/DL Creatinine 0.67 MG/DL Estimat Glomerular Filtration 119 ML/MIN Rate Random Glucose 85 MG/DL Calcium Level 8.9 MG/DL Total Bilirubin 0.3 MG/DL Aspartate Amino Transf 23 U/L (AST/SGOT) Alanine Aminotransferase 29 U/L (ALT/SGPT) Alkaline Phosphatase 104 U/L Total Protein 8.0 GM/DL Albumin 3.9 GM/DL Lipase 130 U/L Urine Color LIGHT-YELLOW Urine Turbidity CLEAR Urine pH 7.5 Urine Specific [place] 1.008 Urine Protein NEG mg/dL Urine Glucose (UA) NEG mg/dL Urine Ketones NEG mg/dL Urine Occult Blood NEG Urine Nitrite NEG Urine Bilirubin NEG Urine Urobilinogen LESS THAN 2.0 MG/DL Urine Leukocyte Esterase NEG Urine WBC 1 /hpf Urine Squamous Epithelial <1 /hpf Cells Microscopic Urinalysis Comment CULT NOT INDICATED MDM Medical Record Reviewed: Yes Supervised Visit with LISA: Yes Interpretation(s) Vital Signs Date Time Temp Pulse Resp B/P Pulse Ox O2 Delivery O2 Flow Rate FiO2 03/20/17 17:16 98.9 84 20 129/63 97 Room Air CBC & BMP Diagram 03/20/17 20:30 Narrative Course I, Dr. Boudreaux, have reviewed the advance practice practitioner's documentation and am in agreement, met with the patient face to face, made the diagnosis, and the medical decision making was done by me. *My assessment and Findings: Patient is a 36-year-old female who presents to emergency room with complaints of nausea, vomiting for the past 5 days. Patient reports that she has history of "abdominal issues" for the past few years and she does see a plasterer foreman. Patient reports that for the past 5 days, she has not been able to keep anything down. Patient reports no abdominal pain, reports that she is just nauseous and has been vomiting. Patient does have an appointment with her plasterer foreman next week, reports "i just can't keep anything down. " Patient is nontoxic on evaluation, patient with no abdominal pain, abdomen is soft, nontender, nondistended, no peritoneal signs. Patient with most likely gastroenteritis versus gastritis. Labs ordered to evaluate for electrolyte abnormality, plan to hydrate patient and give antiemetics. Laboratory Tests Test 03/20/17 03/20/17 20:30 20:40 White Blood Count 4.7 TH/MM3 (4.0-11.0) Red Blood Count 4.47 MIL/MM3 (4.00-5.30) Hemoglobin 13.4 GM/DL (11.6-15.3) Hematocrit 39.8 % (35.0-46.0) Mean Corpuscular Volume 88.9 FL (80.0-100.0) Mean Corpuscular Hemoglobin 30.0 PG (27.0-34.0) Mean Corpuscular Hemoglobin 33.8 % Concent (32.0-36.0) Red Cell Distribution Width 12.7 % (11.6-17.2) Platelet Count 189 TH/MM3 (150-450) Mean Platelet Volume 8.4 FL (7.0-11.0) Neutrophils (%) (Auto) 52.6 % (16.0-70.0) Lymphocytes (%) (Auto) 37.0 % (9.0-44.0) Monocytes (%) (Auto) 8.5 % (0.0-8.0) Eosinophils (%) (Auto) 1.4 % (0.0-4.0) Basophils (%) (Auto) 0.5 % (0.0-2.0) Neutrophils # (Auto) 2.5 TH/MM3 (1.8-7.7) Lymphocytes # (Auto) 1.7 TH/MM3 (1.0-4.8) Monocytes # (Auto) 0.4 TH/MM3 (0-0.9) Eosinophils # (Auto) 0.1 TH/MM3 (0-0.4) Basophils # (Auto) 0.0 TH/MM3 (0-0.2) CBC Comment DIFF FINAL Differential Comment Sodium Level 139 MEQ/L (136-145) Potassium Level 3.4 MEQ/L (3.5-5.1) Chloride Level 101 MEQ/L (98-107) Carbon Dioxide Level 30.3 MEQ/L (21.0-32.0) Anion Gap 8 MEQ/L (5-15) Blood Urea Nitrogen 7 MG/DL (7-18) Creatinine 0.67 MG/DL (0.50-1.00) Estimat Glomerular Filtration 119 ML/MIN Rate (>89) Random Glucose 85 MG/DL (74-106) Calcium Level 8.9 MG/DL (8.5-10.1) Total Bilirubin 0.3 MG/DL (0.2-1.0) Aspartate Amino Transf 23 U/L (15-37) (AST/SGOT) Alanine Aminotransferase 29 U/L (10-53) (ALT/SGPT) Alkaline Phosphatase 104 U/L (45-117) Total Protein 8.0 GM/DL (6.4-8.2) Albumin 3.9 GM/DL (3.4-5.0) Lipase 130 U/L (73-393) Urine Color LIGHT-YELLOW (YELLW/STRAW) Urine Turbidity CLEAR (CLEAR) Urine pH 7.5 (5.0-8.5) Urine Specific [place] 1.008 (1.002-1.035) Urine Protein NEG mg/dL (NEG-TRACE) Urine Glucose (UA) NEG mg/dL (NEG) Urine Ketones NEG mg/dL (NEG) Urine Occult Blood NEG (NEG) Urine Nitrite NEG (NEG) Urine Bilirubin NEG (NEG) Urine Urobilinogen LESS THAN 2.0 MG/DL (LESS THAN 2.0) Urine Leukocyte Esterase NEG (NEG) Urine WBC 1 /hpf (0-5) Urine Squamous Epithelial <1 /hpf (0-5) Cells Microscopic Urinalysis Comment CULT NOT INDICATED Vital Signs Date Time Temp Pulse Resp B/P Pulse Ox O2 Delivery O2 Flow Rate FiO2 03/20/17 17:16 98.9 84 20 129/63 97 Room Air All labs and all studies reviewed, she with hypokalemia most likely from her nausea and vomiting. Patient reevaluated, patient reports that she is feeling much better at this time. Abdomen is soft, nontender, nondistended, no peritoneal signs. Signs and symptoms of when to return to the emergency room was reviewed patient in detail. Patient will follow-up with her plasterer foreman, she will return to emergency room if symptoms return Diagnosis Primary Impression: Nausea & vomiting Qualified Code: R11.2 - Nausea and vomiting, intractability of vomiting not specified, unspecified vomiting type Referrals: [facility] Primary Care Physician Patient Instructions: General Instructions, Gastritis (ED), Diet for Stomach Ulcers and Gastritis (ED) Additional Instruction: Follow-up with a primary care provider Seek gastroenterology avoid acidic and abrasive foods Return immediately with any acute worsening symptoms Return to Emergency Room as needed Med/Other Pt SpecificInfo: Prescription(s) given Scripts Metoclopramide (Reglan)10 Mg Tab10 Mg PO QID PRN (NAUSEA OR VOMITING) #20 TAB Ref 0 Prov:Khadra Ocampo 03/20/17 Disposition: 01 DISCHARGE HOME Condition: Stable Patrica Boudreaux DO March 20, 2017 20:39
[2017-03-20 21:03] LABS: AUTOMATED NEUTROPHIL # 2.5 TH/MM3 (1.8-7.7); BASOPHIL % 0.5 % (0.0-2.0); EOSINOPHIL # 0.1 TH/MM3 (0-0.4); EOSINOPHIL % 1.4 % (0.0-4.0); HEMATOCRIT 39.8 % (35.0-46.0); HEMO FLAGS DIFF FINAL; LYMPHOCYTE # 1.7 TH/MM3 (1.0-4.8); MEAN CELL VOLUME 88.9 FL (80.0-100.0); MEAN CORPUSCULAR HGB CONC 33.8 % (32.0-36.0); MONO % 8.5 % (0.0-8.0); NEUT % 52.6 % (16.0-70.0); PLATELET COUNT 189 TH/MM3 (150-450); RED BLOOD COUNT 4.47 MIL/MM3 (4.00-5.30); RED CELL DISTRIBUTION WIDTH 12.7 % (11.6-17.2); WHITE BLOOD COUNT 4.7 TH/MM3 (4.0-11.0)
[2017-03-20 21:04] LABS: BLOOD, URINE NEG (NEG); COMMENT (UR) CULT NOT INDICATED; CULTURE IF INDICATED CULT NOT INDICATED; GLUCOSE,URINE NEG (NEG); KETONE, URINE NEG (NEG); NITRITE,URINE NEG (NEG); PH, URINE 7.5 (5.0-8.5); SQUAMOUS EPITHELIAL CELL URINE <1 /hpf (0-5); URINE COLOR LIGHT-YELLOW (YELLW/STRAW)
[2017-03-20 21:17] LABS: ANION GAP 8 MEQ/L (5-15); AST (GOT) 23 U/L (15-37); BICARBONATE 30.3 MEQ/L (21.0-32.0); BLOOD UREA NITROGEN 7 MG/DL (7-18); CHLORIDE 101 MEQ/L (98-107); GLOMERULAR FILTRATION RATE 119 ML/MIN (>89); POTASSIUM 3.4 MEQ/L (3.5-5.1); SODIUM (NA) 139 MEQ/L (136-145)
[2017-03-20 21:20] LABS: ALKALINE PHOSPHATASE 104 U/L (45-117); ALT (GPT) 29 U/L (10-53); TOTAL BILIRUBIN ADULT 0.3 MG/DL (0.2-1.0)
[2017-03-20] MEDS ORDERED: POTASSIUM CHLORIDE 25 MEQ EFFERVESCENT TAB PO ONE (22:00)
[2017-03-20 22:28] VITALS: BP 115/62
== END 2017-03-20 22:33 | disposition home or self-care (01) ==
LOC: NEPD 17:13
DX: R11.2 Nausea with vomiting, unspecified (principal); F12.90 Cannabis use, unspecified, uncomplicated
CPT/HCPCS: 80053; 81001; 83690; 84703; 85025; 96361; 96374; 96375; 99284; J1200; J2405; J2765; J7030

== ENCOUNTER 2017-03-27 20:32 | Emergency (ER) | payer OTHER ==
[~2017-03-27] VITALS: Ht 157.5 cm; Wt 65.0 kg
[~2017-03-27 20:32] MED LIST changes: +REGL10TA5 PO
[2017-03-27 20:35] VITALS: BP 113/69; PULSE 94; RESP 16; TEMP 97.8; O2SAT 98
[2017-03-28 00:08] VITALS: BP 103/63; PULSE 62; RESP 18; O2SAT 96
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
== END 2017-03-28 01:04 | disposition home or self-care (01) ==
LOC: NEPC 20:32
DX: S60.221D Contusion of right hand, subsequent encounter (principal); E07.9 Disorder of thyroid, unspecified; Z86.79 Personal history of other diseases of the circulatory system; Z87.19 Personal history of other diseases of the digestive system; Z87.448 Personal history of other diseases of urinary system; Z87.39 Personal history of other diseases of the musculoskeletal system and connective tissue; Z86.69 Personal history of other diseases of the nervous system and sense organs; W51.XXXD Accidental striking against or bumped into by another person, subsequent encounter
CPT/HCPCS: 99283

== ENCOUNTER 2017-10-03 10:00 | Emergency (ER) | payer OTHER ==
[~2017-10-03] VITALS: Ht 162.6 cm; Wt 57.0 kg
[2017-10-03 10:09] VITALS: BP 108/68; PULSE 72; RESP 19; TEMP 98.2; O2SAT 100
[2017-10-03] MEDS ORDERED: AZIT250T3 PO (10:27)
[2017-10-03] MEDS ORDERED: ALBUAER3 INH (10:27)
[2017-10-03] MEDS ORDERED: OMEP40CA2 PO (10:27)
[2017-10-03] MEDS ORDERED: PRED20 PO (10:27)
[2017-10-03] MEDS ORDERED: RANI150T PO (10:27)
[2017-10-03] MEDS ORDERED: SODIUM CHLOR 0.9% 1000 ML INJ 1,000 ML IV ONE (10:33)
[2017-10-03] MEDS ORDERED: SODIUM CHLORIDE 0.9% FLUSH 10 ML FLUSH IVF PRN (10:45)
[2017-10-03 10:51] LABS: AUTOMATED NEUTROPHIL # 7.3 TH/MM3 (1.8-7.7); BASOPHIL % 0.2 % (0.0-2.0); EOSINOPHIL % 0.3 % (0.0-4.0); HEMATOCRIT 35.7 % (35.0-46.0); HEMO FLAGS DIFF FINAL; LYMPHOCYTE # 2.3 TH/MM3 (1.0-4.8); MEAN CELL VOLUME 90.7 FL (80.0-100.0); MEAN CORPUSCULAR HEMOGLOBIN 30.5 PG (27.0-34.0); MEAN CORPUSCULAR HGB CONC 33.7 % (32.0-36.0); MONO % 4.7 % (0.0-8.0); NEUT % 71.8 % (16.0-70.0); PLATELET COUNT 224 TH/MM3 (150-450); RED BLOOD COUNT 3.94 MIL/MM3 (4.00-5.30); RED CELL DISTRIBUTION WIDTH 12.9 % (11.6-17.2); WHITE BLOOD COUNT 10.2 TH/MM3 (4.0-11.0)
--- NOTE | 2017-10-03 11:10 | PD ---
HPI Chief Complaint: Seizure Time Seen by Provider: 10:24 Travel History International Travel<30 days: No Contact w/Intl Traveler<30days: No Traveled to known affect area: No History of Present Illness HPI So 37 year-old woman presents to the emergency department complaining of passing out. She reports that she's been sick for the past couple days. She has a history of stomach problems and GERD states it's been worse the past couple days. She also had cough cold symptoms for the past 5 days or so. She went to her doctor on Friday because of cough cold symptoms and got medicine for GERD, as well as for cold. She felt pretty sick yesterday. Today she was feeling sick sitting on the couch and when she stood up she felt lightheaded, tunnel vision and spots in her vision, and then apparently passed out. Bystanders describe a little bit of jerking when she's on the ground. Patient describes that she felt fluid coming out of her mouth remembers hearing people talk to her. EMS describes low blood pressure initially, 100s or so, and some mild confusion rapidly cleared. No tongue biting. No urinary incontinence. Patient states she has a history of having a seizure one time in the past although this seems a little bit suspicious based on her history. History Past Medical History Narrative Medical GERD/peptic ulcer disease Asthma : 3 Para: 3 Social History Alcohol Use: No Tobacco Use: No Allergies-Medications (Allergen,Severity, Reaction): Coded Allergies: butorphanol (Unverified Allergy, Severe, jitters, 10/03/17) cephalexin (Unverified Allergy, Severe, DOESN'T REMEMBER, 10/03/17) diatrizoate meglumine (Unverified Allergy, Severe, ITCHING ALL OVER BODY, 10/03/17) droperidol (Unverified Allergy, Severe, JITTERY, 10/03/17) gadobenic acid (Unverified Allergy, Severe, ITCHING ALL OVER BODY, ) gadodiamide (Unverified Allergy, Severe, ITCHING ALL OVER BODY, 10/03/17) gadoteridol (Unverified Allergy, Severe, ITCHING ALL OVER BODY, 10/03/17) iodixanol (Unverified Allergy, Severe, ITCHING ALL OVER BODY, 10/03/17) iohexol (Unverified Allergy, Severe, ITCHING ALL OVER BODY, 10/03/17) ketorolac (Unverified Allergy, Severe, JUMPY, 10/03/17) prochlorperazine (Unverified Allergy, Severe, LEGS SHAKE, 10/03/17) JITTERY LEGS promethazine (Unverified Allergy, Severe, JITTERY, 10/03/17) penicillin G (Unverified Allergy, Mild, nausea, 10/03/17) alginic acid (Unverified Adverse Reaction, Severe, N&V, 10/03/17) aluminum hydroxide (Unverified Adverse Reaction, Severe, N&V, 10/03/17) calcium carbonate (Unverified Adverse Reaction, Severe, N&V, 10/03/17) magnesium (Unverified Adverse Reaction, Severe, N&V, 10/03/17) sodium bicarbonate (Unverified Adverse Reaction, Severe, N&V, 10/03/17) sulfisoxazole (Unverified Adverse Reaction, Severe, N&V, 10/03/17) Reported Meds & Prescriptions Reported Meds & Active Scripts Active Reglan (Metoclopramide HCl) 10 Mg Tab 10 Mg PO QID PRN Reported Ranitidine (Ranitidine HCl) 150 Mg Tab 150 Mg PO BID Prednisone 20 Mg Tab 20 Mg PO BID Omeprazole 40 Mg Cap 40 Mg PO DAILY Azithromycin 250 Mg Tab 250 Mg PO DIRECTED Take 2 tabs (500 mg) on day 1 then 1 tab daily x 4 days. Proair Hfa 8.5 GM Inh (Albuterol Sulfate) 90 Mcg/Act Aer 1 Puff INH Q4H PRN 108 mcg/actuation Review of Systems Except as stated in HPI: all other systems reviewed are Neg Physical Exam Narrative GENERAL: Well-appearing 37 year-old woman, no acute distress. SKIN: Focused skin assessment warm/dry. HEAD: Atraumatic. Normocephalic. EYES: Pupils equal and round. No scleral icterus. No injection or drainage. ENT: No nasal bleeding or discharge. Mucous membranes pink and moist. NECK: Trachea midline. No JVD. CARDIOVASCULAR: Regular rate and rhythm. No murmur appreciated. RESPIRATORY: No accessory muscle use. Clear to auscultation. Breath sounds equal bilaterally. GASTROINTESTINAL: Abdomen soft, non-tender, nondistended. Hepatic and splenic margins not palpable. MUSCULOSKELETAL: No obvious deformities. No clubbing. No cyanosis. No edema. NEUROLOGICAL: Awake and alert. No obvious cranial nerve deficits. No facial asymmetry. Motor grossly within normal limits. Strength full and equal upper and lower 70s. Normal speech. PSYCHIATRIC: Appropriate mood and affect; insight and judgment normal. Data Data Last Documented VS Vital Signs Date Time Temp Pulse Resp B/P (MAP) Pulse Ox O2 Delivery O2 Flow Rate FiO2 10/03/17 11:58 99 Room Air 10/03/17 10:09 98.2 72 19 108/68 (81) Orders Orders Electrocardiogram (10/03/17 10:33) Beta Hcg (Quant/Titer) (10/03/17 10:33) Complete Blood Count With Diff (10/03/17 10:33) Comprehensive Metabolic Panel (10/03/17 10:33) Ct Brain W/O Iv Contrast(Rout) (10/03/17 10:33) Ecg Monitoring (10/03/17 10:33) Iv Access Insert/Monitor (10/03/17 10:33) Oximetry (10/03/17 10:33) Sodium Chloride 0.9% Flush (Ns Flush) (10/03/17 10:45) Sodium Chlor 0.9% 1000 Ml Inj (Ns 1000 M (10/03/17 10:33) Potassium Chlor 20 Meq Premix (Kcl 20 Me (10/03/17 11:30) Potassium Chloride (Kcl) (10/03/17 11:30) Labs Laboratory Tests Test 10/03/17 10:30 White Blood Count 10.2 TH/MM3 Red Blood Count 3.94 MIL/MM3 Hemoglobin 12.0 GM/DL Hematocrit 35.7 % Mean Corpuscular Volume 90.7 FL Mean Corpuscular Hemoglobin 30.5 PG Mean Corpuscular Hemoglobin Concent 33.7 % Red Cell Distribution Width 12.9 % Platelet Count 224 TH/MM3 Mean Platelet Volume 8.2 FL Neutrophils (%) (Auto) 71.8 % Lymphocytes (%) (Auto) 23.0 % Monocytes (%) (Auto) 4.7 % Eosinophils (%) (Auto) 0.3 % Basophils (%) (Auto) 0.2 % Neutrophils # (Auto) 7.3 TH/MM3 Lymphocytes # (Auto) 2.3 TH/MM3 Monocytes # (Auto) 0.5 TH/MM3 Eosinophils # (Auto) 0.0 TH/MM3 Basophils # (Auto) 0.0 TH/MM3 CBC Comment DIFF FINAL Differential Comment Blood Urea Nitrogen 10 MG/DL Creatinine 0.77 MG/DL Random Glucose 87 MG/DL Total Protein 7.3 GM/DL Albumin 3.7 GM/DL Calcium Level 8.5 MG/DL Alkaline Phosphatase 83 U/L Aspartate Amino Transf (AST/SGOT) 14 U/L Alanine Aminotransferase (ALT/SGPT) 19 U/L Total Bilirubin 0.3 MG/DL Sodium Level 141 MEQ/L Potassium Level 2.9 MEQ/L Chloride Level 105 MEQ/L Carbon Dioxide Level 29.2 MEQ/L Anion Gap 7 MEQ/L Estimat Glomerular Filtration Rate 101 ML/MIN Human Chorionic Gonadotropin, Quant LESS THAN 1 MIU/ML MDM Medical Decision Making Medical Screen Exam Complete: Yes Emergency Medical Condition: Yes Interpretation(s) My interpretation of EKG: Normal sinus rhythm at a rate of 67, normal axis, normal intervals, no acute ischemia. LABS: CBC is unremarkable. CMP remarkable for potassium 2.[address] heads negative. Differential Diagnosis Syncope, dehydration, orthostasis, seizure, URI, other Narrative Course Medical decision making INITIAL: To 37 year-old woman presents to the emergency department following what sounds like a syncopal episode. She looks well. She states she hit her head and has headache but has complaints of frequent headaches. Review of her records is a history of frequent ED utilization for a variety of complaints. We 'll check screening labs, EKG, IV fluid rehydration. FINAL: 37 year-old woman with what sounds like syncope and collapse. Workups unremarkable except for some hypokalemia. We'll restart her on some potassium recommend repeat labs next week. Diagnosis Primary Impression: Syncope and collapse Additional Impression: Hypokalemia Additional Instructions: Take potassium as prescribed. Drink plenty fluids stay well-hydrated. Follow-up with her primary doctor next week for repeat evaluation. Med/Other Pt SpecificInfo: Prescription(s) given Scripts Potassium Chloride ER (Potassium Chloride ER) 10 Meq Tab 10 MEQ PO BID for Electrolyte Replacement for 7 Days, #14 TAB 0 Refills Prov: Manolo Remy MD 10/03/17 Disposition: DISCHARGE HOME Condition: Stable Manolo Remy MD Oct 03, 2017 11:10
[2017-10-03 11:18] LABS: ALKALINE PHOSPHATASE 83 U/L (45-117); ALT (GPT) 19 U/L (10-53); ANION GAP 7 MEQ/L (5-15); AST (GOT) 14 U/L (15-37); BETA HCG QUANT LESS THAN 1 MIU/ML (0-5); BICARBONATE 29.2 MEQ/L (21.0-32.0); BLOOD UREA NITROGEN 10 MG/DL (7-18); CHLORIDE 105 MEQ/L (98-107); GLOMERULAR FILTRATION RATE 101 ML/MIN (>89); SODIUM (NA) 141 MEQ/L (136-145); TOTAL BILIRUBIN ADULT 0.3 MG/DL (0.2-1.0)
[2017-10-03 11:26] LABS: POTASSIUM 2.9 MEQ/L (3.5-5.1)
[2017-10-03] MEDS ORDERED: POTASSIUM CHLOR 20 MEQ PREMIX 100 ML IV ONE (11:30)
[2017-10-03] MEDS ORDERED: POTASSIUM CHLORIDE 20 MEQ CONTROLLED RELEASE TAB PO ONE (11:30)
[2017-10-03 11:58] VITALS: O2SAT 99
--- NOTE | 2017-10-03 12:17 | RADRPT ---
EXAM DATE/TIME: 10/03/2017 12:02 [facility] COMPARISON: No previous studies available for comparison. INDICATIONS : Syncope today. RADIATION DOSE: 31.92 CTDIvol (mGy) MEDICAL HISTORY : Cerebrovascular disease. SURGICAL HISTORY : Appendectomy. Cholecystectomy. ENCOUNTER: Initial ACUITY: 1 day PAIN SCALE: 0/10 LOCATION: cranial TECHNIQUE: Multiple contiguous axial images were obtained of the head. Using automated exposure control and adj ustment of the mA and/or kV according to patient size, radiation dose was kept as low as reasonably a chievable to obtain optimal diagnostic quality images. DICOM format image data is available electro nically for review and comparison. FINDINGS: CEREBRUM: The ventricles are normal for age. No evidence of midline shift, mass lesion, hemorrhage or acute in farction. No extra-axial fluid collections are seen. POSTERIOR FOSSA: The cerebellum and brainstem are intact. The 4th ventricle is midline. The cerebellopontine angle i s unremarkable. EXTRACRANIAL: The visualized portion of the orbits is intact. SKULL: The calvaria is intact. No evidence of skull fracture. CONCLUSION: Normal examination. Manolo Diaz MD on October 03, 2017 at 12:15 Board Certified Radiologist. This report was verified electronically.
[2017-10-03] MEDS ORDERED: POTA10TA2 PO (13:52)
--- NOTE | 2017-10-04 23:13 | EKG ---
Date Performed: 10/03/2017 Time Performed: 10:44:50 PTAGE: 37 years EKG: Sinus rhythm NORMAL ECG Compared to the PREVIOUS TRACING from 12/21/16, no significant change DOCTOR: Rosendo Madera Interpretating Date/Time 10/04/2017 23:11:41
== END 2017-10-03 14:47 | disposition home or self-care (01) ==
LOC: NEPC 10:00
DX: R55 Syncope and collapse (principal); E87.6 Hypokalemia; R51 Headache; K21.9 Gastro-esophageal reflux disease without esophagitis; R05 Cough; K27.9 Peptic ulcer, site unspecified, unspecified as acute or chronic, without hemorrhage or perforation; J45.909 Unspecified asthma, uncomplicated; Z79.899 Other long term (current) drug therapy; Z88.0 Allergy status to penicillin
CPT/HCPCS: 70450; 80053; 84702; 85025; 93005; 96374; 99285; J3480; J7030

== ENCOUNTER 2017-10-15 03:31 | Observation (INO) | payer OTHER ==
[~2017-10-15] VITALS: Ht 149.9 cm; Wt 60.0 kg
[2017-10-15] VITALS (9 sets, daily range): BP systolic 103–121; BP diastolic 55–76; PULSE 66–85; RESP 18–20; TEMP 97.3–98.4; O2SAT 96–99
[~2017-10-15 03:31] MED LIST changes: +ALBUAER3 INH; +AZIT250T3 PO; +OMEP40CA2 PO; +POTA10TA2 PO; +PRED20 PO; +RANI150T PO; -ZOFR4TAB3 SL
[2017-10-15] MEDS ORDERED: ONDANSETRON HCL 4 MG/2 ML VIAL ONE (03:48)
[2017-10-15] MEDS ORDERED: ONDANSETRON HCL 4 MG/2 ML VIAL IV ONE (04:00)
[2017-10-15] MEDS ORDERED: SODIUM CHLOR 0.9% 1000 ML INJ 1,000 ML IV ONE ×2 (04:00→05:00)
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
[2017-10-15 04:12] LABS: AUTOMATED NEUTROPHIL # 20.7 TH/MM3 (1.8-7.7); BASOPHIL # 0.1 TH/MM3 (0-0.2); BASOPHIL % 0.4 % (0.0-2.0); HEMATOCRIT 38.5 % (35.0-46.0); HEMO FLAGS DIFF FINAL; LYMPH % 3.2 % (9.0-44.0); LYMPHOCYTE # 0.7 TH/MM3 (1.0-4.8); MEAN CELL VOLUME 89.8 FL (80.0-100.0); MEAN CORPUSCULAR HGB CONC 34.6 % (32.0-36.0); MONO % 2.9 % (0.0-8.0); NEUT % 93.5 % (16.0-70.0); PLATELET COUNT 187 TH/MM3 (150-450); RED BLOOD COUNT 4.28 MIL/MM3 (4.00-5.30); RED CELL DISTRIBUTION WIDTH 12.9 % (11.6-17.2); WHITE BLOOD COUNT 22.1 TH/MM3 (4.0-11.0)
[2017-10-15] MEDS ORDERED: OMEP40CA2 PO (04:12)
[2017-10-15] MEDS ORDERED: REGL10TA5 PO (04:12)
--- NOTE | 2017-10-15 04:23 | RADRPT ---
EXAM DATE/TIME: 10/15/2017 04:14 [facility] COMPARISON: No previous studies available for comparison. INDICATIONS : Shortness of breath. MEDICAL HISTORY : Cerebrovascular disease SURGICAL HISTORY : Appendectomy. Cholecystectomy. ENCOUNTER: Initial ACUITY: 1 day PAIN SCORE: 10/10 LOCATION: Bilateral chest FINDINGS: A single view of the chest demonstrates the lungs to be symmetrically aerated without evidence of mas s, infiltrate or effusion. The cardiomediastinal contours are unremarkable. Osseous structures are intact. CONCLUSION: No acute disease. Teofilo Dalton MD on October 15, 2017 at 4:21 Board Certified Radiologist. This report was verified electronically.
[2017-10-15 04:32] LABS: ALT (GPT) 40 U/L (10-53); ANION GAP 11 MEQ/L (5-15); AST (GOT) 37 U/L (15-37); BICARBONATE 22.9 MEQ/L (21.0-32.0); BLOOD UREA NITROGEN 12 MG/DL (7-18); CHLORIDE 99 MEQ/L (98-107); GLOMERULAR FILTRATION RATE 87 ML/MIN (>89); MAGNESIUM 1.7 MG/DL (1.5-2.5); POTASSIUM 3.3 MEQ/L (3.5-5.1); SODIUM (NA) 133 MEQ/L (136-145)
[2017-10-15 04:35] LABS: ALKALINE PHOSPHATASE 93 U/L (45-117); TOTAL BILIRUBIN ADULT 1.1 MG/DL (0.2-1.0)
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
[2017-10-15 04:53] LABS: BLOOD, URINE NEG (NEG); COMMENT (UR) CULT NOT INDICATED; CULTURE IF INDICATED CULT NOT INDICATED; GLUCOSE,URINE NEG (NEG); KETONE, URINE 10 mg/dL (NEG); MUCUS URINE FEW /lpf (OCC); NITRITE,URINE NEG (NEG); PH, URINE 7.5 (5.0-8.5); SQUAMOUS EPITHELIAL CELL URINE 7 /hpf (0-5); URINE COLOR YELLOW (YELLW/STRAW)
[2017-10-15] MEDS ORDERED: HYDROmorphone HCL PF 1 MG/ML VIAL IV PUSH ONE (05:00)
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
[2017-10-15] MEDS ORDERED: metroNIDAZOLE 500 MG INJ 100 ML IV ONE (06:45)
[2017-10-15] MEDS ORDERED: SODIUM CHLORIDE 0.9% FLUSH 10 ML FLUSH IV FLUSH PRN (06:45)
[2017-10-15] MEDS ORDERED: LEVOFLOXACIN 750 MG PREMIX INJ 150 ML IV ONE (06:45)
[2017-10-15] MEDS ORDERED: NALOXONE HCL 0.4 MG/ML AMP IV PUSH PRN (06:45)
[2017-10-15] MEDS: SODIUM CHLORIDE 0.9% FLUSH 10 ML FLUSH IV FLUSH SCH ×2 (08:11→20:32)
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
--- NOTE | 2017-10-15 10:14 | PD.CONS ---
HPI History of Present Illness This is a 37 year old female with allergies to contrast who presented with nausea, vomiting, abd pain, diarrhea. Onset yesterday. The abd pain is in the umbilical region, constant. She has this pain and n/v frequently, every few days but yesterday was the worst and yesterday's episode included diarrhea. She is having average 10 episodes loose stool and stool whenver she vomits, which is also frequently. Admits fever at home 102degrees. Denies sick contacts, change diet, recent travel. Had abx 2 weeks ago in ER when she came with a seizure. no caty blood in stool but she does admit black stool. Does not take iron. never had EGD or colonoscopy. Does not have gallbladder or appendix. She was a pt of Dr Joseph, who apparently did HIDA and then referred pt to surgery for cholecystectomy. She admits acid reflux but does not take anything for it. Smokes marijuana daily. (Deann Mclean) PFSH Past Medical History Chronic epigastric pain Chronic emesis chronic Marijuana use Past Surgical History Appendectomy Cholecystectomy (Deann Mclean) Coded Allergies: butorphanol (Unverified Allergy, Severe, jitters, 10/15/17) cephalexin (Unverified Allergy, Severe, DOESN'T REMEMBER, 10/15/17) diatrizoate meglumine (Unverified Allergy, Severe, ITCHING ALL OVER BODY, 10/15/17) droperidol (Unverified Allergy, Severe, JITTERY, 10/15/17) gadobenic acid (Unverified Allergy, Severe, ITCHING ALL OVER BODY, 10/15/17 ) gadodiamide (Unverified Allergy, Severe, ITCHING ALL OVER BODY, 10/15/17) gadoteridol (Unverified Allergy, Severe, ITCHING ALL OVER BODY, 10/15/17) iodixanol (Unverified Allergy, Severe, ITCHING ALL OVER BODY, 10/15/17) iohexol (Unverified Allergy, Severe, ITCHING ALL OVER BODY, 10/15/17) ketorolac (Unverified Allergy, Severe, JUMPY, 10/15/17) prochlorperazine (Unverified Allergy, Severe, LEGS SHAKE, 10/15/17) JITTERY LEGS promethazine (Unverified Allergy, Severe, JITTERY, 10/15/17) penicillin G (Unverified Allergy, Mild, nausea, 10/15/17) alginic acid (Unverified Adverse Reaction, Severe, N&V, 10/15/17) aluminum hydroxide (Unverified Adverse Reaction, Severe, N&V, 10/15/17) calcium carbonate (Unverified Adverse Reaction, Severe, N&V, 10/15/17) magnesium (Unverified Adverse Reaction, Severe, N&V, 10/15/17) sodium bicarbonate (Unverified Adverse Reaction, Severe, N&V, 10/15/17) sulfisoxazole (Unverified Adverse Reaction, Severe, N&V, 10/15/17) Family History lung ca lymphoma Social History no ETOH no tobacco frequent marijuana use (Deann Mclean) Review of Systems Constitutional: COMPLAINS OF: Fever Eyes: DENIES: Blurred vision Ears, nose, mouth, throat: DENIES: Hearing loss Respiratory: DENIES: Cough Cardiovascular: DENIES: Chest pain Gastrointestinal: COMPLAINS OF: Abdominal pain, Black stools, Diarrhea, Nausea , Vomiting, DENIES: Bloody stools, Constipation, Hematemesis Genitourinary: DENIES: Hematuria Musculoskeletal: DENIES: Joint Swelling Integumentary: DENIES: Jaundice Hematologic/lymphatic: DENIES: Bruising Neurologic: DENIES: Abnormal gait Psychiatric: DENIES: Confusion (Deann Mclean) GI Exam Vitals I&O Vital Signs Date Time Temp Pulse Resp B/P (MAP) Pulse Ox O2 Delivery O2 Flow Rate FiO2 10/15/17 08:29 98.4 82 18 112/55 (74) 96 10/15/17 08:17 10/15/17 04:06 20 96 Room Air 10/15/17 03:32 97.9 66 20 110/72 (85) 99 Room Air I/O 10/14/17 10/14/17 10/14/17 10/15/17 10/15/17 10/15/17 07:00 15:00 23:00 07:00 15:00 23:00 Intake Total 3000 ml 100 ml Balance 3000 ml 100 ml Intake IV Total 3000 ml 100 ml # Voids 1 Imaging Last Impressions Abdomen/Pelvis CT 10/15/17 0526 Signed Impressions: Service Date/Time: Sunday, October 15, 2017 05:26 - CONCLUSION: 1. Nonobstructive bowel gas pattern. There is apparent circumferential wall thickening involving portions of the cecum with postsurgical change involving the base of the cecum. This is nonspecific. This could represent true wall thickening secondary to inflammatory change or infection or be secondary to lack of distention. A followup study with intravenous and oral contrast could be performed for further evaluation. 2. Status post cholecystectomy. Teofilo Dalton MD Maxillofacial CT 10/15/17 0427 Signed Impressions: Service Date/Time: Sunday, October 15, 2017 04:23 - CONCLUSION: Negative trauma study. Teofilo Dalton MD Head CT 10/15/17 0352 Signed Impressions: Service Date/Time: Sunday, October 15, 2017 04:21 - CONCLUSION: Negative trauma study. Teofilo Dalton MD Chest X-Ray 10/15/17351 Signed Impressions: Service Date/Time: Sunday, October 15, 2017 04:14 - CONCLUSION: No acute disease. Teofilo Dalton MD Laboratory Test 10/15/17 04:00 10/15/17 04:40 10/15/17 06:40 White Blood Count 22.1 TH/MM3 Red Blood Count 4.28 MIL/MM3 Hemoglobin 13.3 GM/DL Hematocrit 38.5 % Mean Corpuscular Volume 89.8 FL Mean Corpuscular Hemoglobin 31.0 PG Mean Corpuscular Hemoglobin Concent 34.6 % Red Cell Distribution Width 12.9 % Platelet Count 187 TH/MM3 Mean Platelet Volume 8.5 FL Neutrophils (%) (Auto) 93.5 % Lymphocytes (%) (Auto) 3.2 % Monocytes (%) (Auto) 2.9 % Eosinophils (%) (Auto) 0.0 % Basophils (%) (Auto) 0.4 % Neutrophils # (Auto) 20.7 TH/MM3 Lymphocytes # (Auto) 0.7 TH/MM3 Monocytes # (Auto) 0.6 TH/MM3 Eosinophils # (Auto) 0.0 TH/MM3 Basophils # (Auto) 0.1 TH/MM3 CBC Comment DIFF FINAL Differential Comment Blood Urea Nitrogen 12 MG/DL Creatinine 0.88 MG/DL Random Glucose 150 MG/DL Total Protein 8.7 GM/DL Albumin 4.5 GM/DL Calcium Level 9.2 MG/DL Magnesium Level 1.7 MG/DL Alkaline Phosphatase 93 U/L Aspartate Amino Transf (AST/SGOT) 37 U/L Alanine Aminotransferase (ALT/SGPT) 40 U/L Total Bilirubin 1.1 MG/DL Sodium Level 133 MEQ/L Potassium Level 3.3 MEQ/L Chloride Level 99 MEQ/L Carbon Dioxide Level 22.9 MEQ/L Anion Gap 11 MEQ/L Estimat Glomerular Filtration Rate 87 ML/MIN C-Reactive Protein 6.22 MG/DL Lipase 160 U/L Urine Color YELLOW Urine Turbidity CLEAR Urine pH 7.5 Urine Specific [place] 1.022 Urine Protein TRACE mg/dL Urine Glucose (UA) NEG mg/dL Urine Ketones 10 mg/dL Urine Occult Blood NEG Urine Nitrite NEG Urine Bilirubin NEG Urine Urobilinogen LESS THAN 2.0 MG/DL Urine Leukocyte Esterase NEG Urine RBC 1 /hpf Urine WBC 1 /hpf Urine Squamous Epithelial Cells 7 /hpf Urine Mucus FEW /lpf Microscopic Urinalysis Comment CULT NOT INDICATED Urine Opiates Screen NEG Urine Barbiturates Screen NEG Urine Amphetamines Screen NEG Urine Benzodiazepines Screen POS Urine Cocaine Screen NEG Urine Cannabinoids Screen POS Lactic Acid Level 1.1 mmol/L Date/Time Source Procedure Growth Status 10/15/17 06:40 Blood Peripheral Aerobic Blood Culture Pending Received 10/15/17 06:40 Blood Peripheral Anaerobic Blood Culture Pending Received Physical Examination HEENT: PERRL; normocephalic; atraumatic; no jaundice. CHEST: CTA CARDIAC: RRR ABDOMEN: Soft, nondistended, diffuse TTP but worse in lower quadrants; no hepatosplenomegaly; bowel sounds are present in all four quadrants. EXTREMITIES: No clubbing, cyanosis, or edema. SKIN: Normal; no rash; no jaundice. 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 (Deann McleanP) Assessment and Plan Plan ASSESSMENT - abd pain, n/v, diarrhea, black stools- unclear etiology. pt has frequent episodes umbilical pain and n/v. current episode includes diarrhea. has had gallbladder and appendix removed. frequent use marijuana could be cannibinoid hyperemesis vs PUD vs gastritis vs gastroenteritis never had EGD or colonoscopy HH WNL - leukocytosis - wbc 22 on admission. on levaquin flagyl PLAN - EGD and colonoscopy in am - obtain consent - clears today - GoLytely prep - NPO after midnight - continue abx - PPI - marijuana cessation - further recs to follow THis pt seen by myself and Dr Lopez and this note is written on his behalf (Deann Mclean) Physician Comments Seen and examined with COMPUTERIZED TABLE CUTTER, egd/colonoscopy planned for tomorrow. Discussedw ith pt. and family. Thankyou (Altaf Lopez MD) Deann Mclean Oct 15, 2017 10:14 Altaf Lopez MD Oct 15, 2017 16:49
[2017-10-15] MEDS ORDERED: ACETAMINOPHEN/HYDROcodone 325 MG/5 MG TAB PO PRN (11:00)
[2017-10-15] MEDS ORDERED: PANTOPRAZOLE SODIUM 40 MG VIAL IV PUSH SCH (11:00)
[2017-10-15] MEDS: metroNIDAZOLE 500 MG INJ 100 ML IV SCH ×2 (11:33→17:07)
[2017-10-15] MEDS: ONDANSETRON HCL 4 MG/2 ML VIAL IV PUSH PRN ×2 (11:34→17:45)
[2017-10-15] MEDS: ACETAMINOPHEN/HYDROcodone 325 MG/5 MG TAB PO PRN (11:35)
[2017-10-15 14:04] LABS: CHLAMYDIA PCR NOT DETECTED (NOT DETECT); NEISSERIA PCR NOT DETECTED (NOT DETECT)
[2017-10-15] MEDS ORDERED: PEG (High)/E-LYTE SOLN 4000 ML BTL PO ONE (16:00)
[2017-10-15] MEDS: CIPROFLOXACIN 400 MG PREMIX 200 ML IV SCH (18:17)
[2017-10-16] MEDS: metroNIDAZOLE 500 MG INJ 100 ML IV SCH ×2 (00:19→05:54)
[2017-10-16] MEDS ORDERED: LACTATED RINGER'S 1000 ML IV PRN (01:30)
[2017-10-16] MEDS ORDERED: SODIUM CHLORID 0.9% 500 ML IV PRN (01:30)
[2017-10-16] MEDS ORDERED: INSULIN HUMAN REGULAR 1,000 UNITS/10 ML VIAL SQ PRN (01:30)
[2017-10-16] MEDS ORDERED: CHLORHEXIDINE GLUCONATE 2 % 1 PACK (2 CLOTHS) TOPICAL PRN (01:30)
[2017-10-16] MEDS ORDERED: METOPROLOL TARTRATE 25 MG TAB PO PRN (01:30)
[2017-10-16 02:25] VITALS: BP 100/80; PULSE 76; RESP 16; TEMP 97; O2SAT 95
[2017-10-16 02:45] VITALS: PULSE 76
[2017-10-16] MEDS: ONDANSETRON HCL 4 MG/2 ML VIAL IV PUSH PRN (03:59)
[2017-10-16] MEDS ORDERED: ONDANSETRON ODT 4 MG TAB SL ONE (04:00)
[2017-10-16 04:05] VITALS: BP 107/69; PULSE 86; RESP 17; TEMP 96.9; O2SAT 99
[2017-10-16] MEDS: ACETAMINOPHEN/HYDROcodone 325 MG/5 MG TAB PO PRN (04:18)
[2017-10-16] MEDS: CIPROFLOXACIN 400 MG PREMIX 200 ML IV SCH (05:54)
[2017-10-16 08:00] VITALS: BP 93/56; PULSE 76; RESP 17; TEMP 97.1; O2SAT 98
[2017-10-16 08:23] LABS: AUTOMATED NEUTROPHIL # 8.4 TH/MM3 (1.8-7.7); BASOPHIL % 0.1 % (0.0-2.0); EOSINOPHIL % 0.3 % (0.0-4.0); HEMO FLAGS DIFF FINAL; LYMPH % 8.5 % (9.0-44.0); LYMPHOCYTE # 0.8 TH/MM3 (1.0-4.8); MEAN CELL VOLUME 90.5 FL (80.0-100.0); MEAN CORPUSCULAR HEMOGLOBIN 31.1 PG (27.0-34.0); MEAN CORPUSCULAR HGB CONC 34.3 % (32.0-36.0); MONO % 5.9 % (0.0-8.0); NEUT % 85.2 % (16.0-70.0); PLATELET COUNT 174 TH/MM3 (150-450); RED BLOOD COUNT 3.53 MIL/MM3 (4.00-5.30); RED CELL DISTRIBUTION WIDTH 12.7 % (11.6-17.2); WHITE BLOOD COUNT 9.9 TH/MM3 (4.0-11.0)
[2017-10-16 08:50] LABS: BICARBONATE 28.4 MEQ/L (21.0-32.0); POTASSIUM 3.5 MEQ/L (3.5-5.1)
[2017-10-16] MEDS ORDERED: METOCLOPRAMIDE HCL 10 MG/2 ML VIAL ONE (09:15)
[2017-10-16] MEDS ORDERED: FAMOTIDINE 20 MG/2 ML VIAL ONE (09:15)
[2017-10-16] MEDS ORDERED: METOCLOPRAMIDE HCL 10 MG/2 ML VIAL IV ONE (10:15)
[2017-10-16] MEDS ORDERED: FAMOTIDINE 20 MG/2 ML VIAL IV ONE (10:15)
--- NOTE | 2017-10-16 10:26 | GIPROC ---
[facility] [address] [facility]. [facility], [address] EGD PROCEDURE REPORT EXAM DATE: 10/16/2017 PATIENT NAME: Alejandra Louise MR #: [id number] BIRTHDATE: 1980 ATTENDING: Altaf Lopez MD ORDER #: [id number] PUBLIC [employer] SALES REPRESENTATIVE: Yaniv Menard and Charleen Loera STATUS: inpatient INDICATIONS: The patient is a 37 yr old female here for an EGD due to epigastric abdominal pain PROCEDURE PERFORMED: EGD w/ biopsy MEDICATIONS: None and Per Anesthesia. TOPICAL ANESTHETIC: CONSENT: The patient understands the risks and benefits of the procedure and understands that these risks include, but are not limited to: sedation, allergic reaction, infection, perforation and/or bleeding. Alternative means of evaluation and treatment include, among others: physical exam, x-rays, and/or surgical intervention. The patient elects to proceed with this endoscopic procedure. medical equipment was checked for proper function. Hand hygiene and appropriate measures for infection prevention was taken. After the risks, benefits and alternatives of the procedure were thoroughly explained, Informed consent was verified, confirmed and timeout was successfully executed by the treatment team. The patient was anesthetized with topical anesthesia and the [id number] (Pedi C) endoscope was introduced through the mouth and advanced to the second portion of the duodenum. Retroflexed views revealed no abnormalities The gastroscope was then slowly withdrawn and removed. ESOPHAGUS: There was LA Class A esophagitis noted. STOMACH: There was erythematous moderate gastritis in the gastric antrum. A biopsy was performed using cold forceps. Sample sent for histology. DUODENUM: The duodenal mucosa appeared normal in the bulb and second portion of the duodenum. ADVERSE EVENTS: There were no complications. IMPRESSIONS: 1. There was LA Class A esophagitis noted 2. There was erythematous gastritis in the gastric antrum; biopsy was performed 3. Normal duodenal mucosa in the bulb and second portion of the duodenum 4. Retroflexed views revealed no abnormalities RECOMMENDATIONS: 1. Admit to hospital 2. Continue PPI PATIENT CONDITION: stable DISPOSITION: Inpatient REPEAT EXAM: Return 1 year EGD pending biopsy results Altaf Lopez MD eSigned: Altaf Lopez MD 10/16/2017 10:26 AM cc: PATIENT NAME: Alejandra Louise MR#: [id number]
--- NOTE | 2017-10-16 10:29 | GIPROC ---
[facility] [address] [facility]. [facility], [address] COLONOSCOPY PROCEDURE REPORT EXAM DATE: 10/16/2017 PATIENT NAME: Alejandra Louise MR #: [id number] BIRTHDATE: 1980 ENDOSCOPIST: Altaf Lopez MD ORDER #: [id number] DATA ANALYTICS SPECIALIST: Charleen Loera and Yaniv Menard STATUS: inpatient INDICATIONS: The patient is a 37 yr old female here for a colonoscopy due to abdominal pain PROCEDURE PERFORMED: Colonoscopy with biopsy MEDICATIONS: None and Per Anesthesia. PREP QUALITY: The Machias Bowel Prep Score was Right colon 2, Mid colon 3, and Left colon 3. Total = 8. PREP TYPE:GoLytely ESTIMATED BLOOD LOSS: None CONSENT: The patient understands the risks and benefits of the procedure and understands that these risks include, but are not limited to: sedation, allergic reaction, infection, perforation and/or bleeding. Alternative means of evaluation and treatment include, among others: physical exam, x-rays, and/or surgical intervention. The patient elects to proceed with this endoscopic procedure. medical equipment was checked for proper function. Hand hygiene and appropriate measures for infection prevention was taken. After the risks, benefits and alternatives of the procedure were thoroughly explained, Informed consent was verified, confirmed and timeout was successfully executed by the treatment team. A digital exam revealed external hemorrhoids The Pentax [id number] endoscope was introduced through the anus and advanced to the cecum, which was identified by both the appendix and ileocecal valve. The instrument was then slowly withdrawn as the colon was fully examined. COLON FINDINGS: A 5 x 5cm patch of colitis was found at the hepatic flexure and in the ascending colon. The mucosa was congested, erythematous, friable, ulcerated and had granularity. Multiple biopsies were performed using cold forceps. Retroflexed views revealed internal hemorrhoids and Retroflexed views revealed medium internal hemorrhoids The scope was then completely withdrawn from the patient and the procedure terminated. PROCEDURE WITHDRAWAL TIME:6minutes ADVERSE EVENTS: There were no complications. IMPRESSIONS: 1. 5 x 5cm colitis was found at the hepatic flexure and in the ascending colon; The mucosa was congested, erythematous, friable, ulcerated and had granularity; multiple biopsies were performed using cold forceps 2. Retroflexed views revealed internal hemorrhoids 3. Retroflexed views revealed medium internal hemorrhoids 4. Revealed external hemorrhoids RECOMMENDATIONS: 1. Await biopsy results. Biopsy results will not be ready for 7-10 days. If you don't hear from us in two weeks, call our office for results. 2. Continue surveillance 3. Yearly hemoccult RECALL: Return 3 months Colonoscopy, pending biopsy results Altaf Lopez MD eSigned: Altaf Lopez MD 10/16/2017 10:28 AM cc: PATIENT NAME: Alejandra Louise MR#: [id number]
[2017-10-16 12:22] VITALS: BP 88/67; PULSE 77; RESP 18; TEMP 99.1; O2SAT 97
[2017-10-16] MEDS ORDERED: DO NOT ADM ANY ANTICOAGULANT DRUGS PRN (12:45)
[2017-10-16] MEDS ORDERED: OMEP40CA2 PO (13:53)
[2017-10-16] MEDS ORDERED: CIPR500T2 PO (13:54)
[2017-10-16] MEDS ORDERED: ZOFR4TAB3 SL (13:54)
[2017-10-16] MEDS ORDERED: METR-1 PO (13:54)
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
[2017-10-16] MEDS ORDERED: HYDR-3516 PO (14:01)
== END 2017-10-16 15:39 | disposition home or self-care (01) ==
LOC: NEPE 03:31 → INTOOBSV 06:30 → NEDA 06:30 → NEPFCDU 08:01 → N06A 10-16 02:28
PROVIDERS: ADMIT Hospitalist; ATTEND Hospitalist
DX: K29.70 Gastritis, unspecified, without bleeding (principal); K21.0 Gastro-esophageal reflux disease with esophagitis; K52.9 Noninfective gastroenteritis and colitis, unspecified; K64.8 Other hemorrhoids; R10.13 Epigastric pain; R11.2 Nausea with vomiting, unspecified; R19.7 Diarrhea, unspecified; R51 Headache; G89.29 Other chronic pain; F12.90 Cannabis use, unspecified, uncomplicated
CPT/HCPCS: 00740; 43239; 45380; 70450; 70486; 71010; 74176; 80048; 80053; 80307; 81001; 83605; 83690; 83735; 85025; 86140; 86592; 86703; 87040; 87491; 87591; 88305; 88312; 96361; 96365; 96366; 96375; 96376; 99285; C9113; G0378; J0744; J1170; J1956; J2405; J2765; J7030

== ENCOUNTER 2017-10-20 00:33 | Emergency (ER) | payer OTHER ==
[~2017-10-20] VITALS: Ht 149.9 cm; Wt 60.0 kg
[~2017-10-20 00:33] MED LIST changes: -AZIT250T3 PO; +CIPR500T2 PO; +HYDR-3516 PO; +METR-1 PO; -POTA10TA2 PO; -PRED20 PO; -RANI150T PO; +ZOFR4TAB3 SL
[2017-10-20 00:36] VITALS: BP 107/59; PULSE 66; RESP 16; TEMP 98.2; O2SAT 98
[2017-10-20] MEDS ORDERED: SODIUM CHLOR 0.9% 1000 ML INJ 1,000 ML IV SCH (01:49)
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
[2017-10-20] MEDS ORDERED: ONDANSETRON HCL 4 MG/2 ML VIAL IV PUSH ONE (02:00)
[2017-10-20] MEDS ORDERED: SODIUM CHLORIDE 0.9% FLUSH 10 ML FLUSH IV FLUSH PRN (02:00)
[2017-10-20 02:16] LABS: AUTOMATED NEUTROPHIL # 4.9 TH/MM3 (1.8-7.7); BASOPHIL % 0.7 % (0.0-2.0); EOSINOPHIL # 0.1 TH/MM3 (0-0.4); HEMATOCRIT 36.8 % (35.0-46.0); HEMO FLAGS DIFF FINAL; LYMPH % 18.8 % (9.0-44.0); LYMPHOCYTE # 1.2 TH/MM3 (1.0-4.8); MEAN CELL VOLUME 91.4 FL (80.0-100.0); MEAN CORPUSCULAR HEMOGLOBIN 30.6 PG (27.0-34.0); MEAN CORPUSCULAR HGB CONC 33.5 % (32.0-36.0); MONO % 5.5 % (0.0-8.0); PLATELET COUNT 230 TH/MM3 (150-450); RED BLOOD COUNT 4.03 MIL/MM3 (4.00-5.30); RED CELL DISTRIBUTION WIDTH 12.8 % (11.6-17.2); WHITE BLOOD COUNT 6.6 TH/MM3 (4.0-11.0)
[2017-10-20 02:23] VITALS: RESP 20
[2017-10-20 02:40] LABS: ALT (GPT) 22 U/L (10-53); ANION GAP 9 MEQ/L (5-15); AST (GOT) 17 U/L (15-37); BICARBONATE 26.5 MEQ/L (21.0-32.0); BLOOD UREA NITROGEN 9 MG/DL (7-18); CHLORIDE 105 MEQ/L (98-107); GLOMERULAR FILTRATION RATE 106 ML/MIN (>89); POTASSIUM 3.1 MEQ/L (3.5-5.1); SODIUM (NA) 140 MEQ/L (136-145)
[2017-10-20 02:42] LABS: ALKALINE PHOSPHATASE 91 U/L (45-117); TOTAL BILIRUBIN ADULT 0.3 MG/DL (0.2-1.0)
[2017-10-20 02:49] LABS: BACTERIA, URINE FEW /hpf; BLOOD, URINE LARGE (NEG); COMMENT (UR) CULTURE INDICATED; CULTURE IF INDICATED CULTURE INDICATED; GLUCOSE,URINE NEG (NEG); KETONE, URINE TRACE mg/dL (NEG); MUCUS URINE MANY /lpf (OCC); NITRITE,URINE NEG (NEG); SQUAMOUS EPITHELIAL CELL URINE 47 /hpf (0-5)
[2017-10-20 02:50] LABS: URINE COLOR LIGHT-RED (YELLW/STRAW)
[2017-10-20] MEDS ORDERED: NITROFURANTOIN MONOHYD MACROCR 100 MG CAP PO ONE (03:00)
[2017-10-20] MEDS ORDERED: POTASSIUM CHLORIDE 20 MEQ CONTROLLED RELEASE TAB PO ONE (03:00)
[2017-10-20] MEDS ORDERED: REGL10TA5 PO (03:01)
[2017-10-20] MEDS ORDERED: ZOFR4TAB3 SL (03:01)
--- NOTE | 2017-10-20 03:24 | RADRPT ---
EXAM DATE/TIME: 10/20/2017 02:06 [facility] COMPARISON: CHEST SINGLE AP, October 15, 2017, 4:14. INDICATIONS : Abdominal pain. MEDICAL HISTORY : Gastroesophageal reflux disease. SURGICAL HISTORY : Appendectomy. Cholecystectomy. Tubal ligation. ENCOUNTER: Initial ACUITY: 1 day PAIN SCORE: 8/10 LOCATION: Bilateral Abdomen FINDINGS: A single view of the chest demonstrates the lungs to be symmetrically aerated without evidence of mas s, infiltrate or effusion. The cardiomediastinal contours are unremarkable. Osseous structures are intact. CONCLUSION: The lungs are clear. Tk Castro MD on October 20, 2017 at 3:22 Board Certified Radiologist. This report was verified electronically.
== END 2017-10-20 03:39 | disposition home or self-care (01) ==
LOC: NEPC 00:33
DX: K52.9 Noninfective gastroenteritis and colitis, unspecified (principal); K21.9 Gastro-esophageal reflux disease without esophagitis
CPT/HCPCS: 71010; 80053; 81001; 83605; 83690; 85025; 87086; 96374; 99285; J2405; J7030

== ENCOUNTER 2017-11-03 22:30 | Emergency (ER) | payer OTHER ==
[~2017-11-03] VITALS: Ht 149.9 cm; Wt 58.0 kg
[~2017-11-03 22:30] MED LIST changes: -CIPR500T2 PO; -HYDR-3516 PO; -METR-1 PO
[2017-11-03 22:36] VITALS: BP 97/66; PULSE 74; RESP 18; TEMP 97.7; O2SAT 100
--- NOTE | 2017-11-03 22:51 | PD ---
HPI Chief Complaint: Cold / Flu Symptoms Time Seen by Provider: 22:49 Travel History International Travel<30 days: No Contact w/Intl Traveler<30days: No Traveled to known affect area: No History of Present Illness HPI 37-year-old female with history of gastritis with recurrent nausea and vomiting. She presents for evaluation of cough, congestion, fevers. Symptoms started 2 days ago. Cough is productive with yellow sputum. She reports that she tried taking some Tylenol and Motrin but she was vomiting up secondary to her recurrent nausea and vomiting. Currently prescribed Zofran that she is still having breakthrough nausea. Denies any acute abdominal pain. Denies any flank pain, dysuria. Denies sore throat, rash, recent travel. She reports that her child had influenza 2 weeks ago but it has resolved. No other complaints. PFSH Past Medical History Hx Anticoagulant Therapy: Yes Asthma: Yes Blood Disorders: No Anxiety: No Depression: No Heart Rhythm Problems: No Cancer: No Cardiovascular Problems: No High Cholesterol: No Chemotherapy: No Chest Pain: No Congestive Heart Failure: No COPD: No Cerebrovascular Accident: Yes (2013) Diabetes: No Diminished Hearing: No Endocrine: No Gastrointestinal Disorders: Yes GERD: Yes Genitourinary: Yes Headaches: Yes Hypertension: No Immune Disorder: No Kidney Stones: Yes Musculoskeletal: No Neurologic: Yes Psychiatric: No Reproductive: No Respiratory: Yes (ASTHMA) Immunizations Current: Yes Migraines: Yes Myocardial Infarction: No Radiation Therapy: No Seizures: Yes (09/2017) Sleep Apnea: No Thyroid Disease: Yes LMP: 10/26/17 : 3 Para: 3 Miscarriage: 0 : 0 Ovarian Cysts: Yes Tubal Ligation: Yes Past Surgical History Abdominal Surgery: Yes (GALLBLADDER, APPENDIX) AICD: No Appendectomy: Yes Cholecystectomy: Yes Hysterectomy: No Joint Replacement: No Pacemaker: No Other Surgery: No Social History Alcohol Use: No Tobacco Use: No Substance Use: Yes (Marijuana 10/14/17) Allergies-Medications (Allergen,Severity, Reaction): Coded Allergies: butorphanol (Unverified Allergy, Severe, jitters, 11/03/17) cephalexin (Unverified Allergy, Severe, DOESN'T REMEMBER, 11/03/17) diatrizoate meglumine (Unverified Allergy, Severe, ITCHING ALL OVER BODY, 11/03/17) droperidol (Unverified Allergy, Severe, JITTERY, 11/03/17) gadobenic acid (Unverified Allergy, Severe, ITCHING ALL OVER BODY, ) gadodiamide (Unverified Allergy, Severe, ITCHING ALL OVER BODY, 11/03/17) gadoteridol (Unverified Allergy, Severe, ITCHING ALL OVER BODY, 11/03/17) iodixanol (Unverified Allergy, Severe, ITCHING ALL OVER BODY, 11/03/17) iohexol (Unverified Allergy, Severe, ITCHING ALL OVER BODY, 11/03/17) ketorolac (Unverified Allergy, Severe, JUMPY, 11/03/17) prochlorperazine (Unverified Allergy, Severe, LEGS SHAKE, 11/03/17) JITTERY LEGS promethazine (Unverified Allergy, Severe, JITTERY, 11/03/17) penicillin G (Unverified Allergy, Mild, nausea, 11/03/17) alginic acid (Unverified Adverse Reaction, Severe, N&V, 11/03/17) aluminum hydroxide (Unverified Adverse Reaction, Severe, N&V, 11/03/17) calcium carbonate (Unverified Adverse Reaction, Severe, N&V, 11/03/17) magnesium (Unverified Adverse Reaction, Severe, N&V, 11/03/17) sodium bicarbonate (Unverified Adverse Reaction, Severe, N&V, 11/03/17) sulfisoxazole (Unverified Adverse Reaction, Severe, N&V, 11/03/17) Reported Meds & Prescriptions Reported Meds & Active Scripts Active Zofran Odt (Ondansetron Odt) 4 Mg Tab 4 Mg SL Q6HR PRN Reported Proair Hfa 8.5 GM Inh (Albuterol Sulfate) 90 Mcg/Act Aer 1 Puff INH Q4H PRN 108 mcg/actuation Review of Systems Except as stated in HPI: all other systems reviewed are Neg Physical Exam Narrative GENERAL: Well-developed well-nourished female in no acute distress SKIN: Warm and dry. HEAD: Atraumatic. Normocephalic. EYES: Pupils equal and round. No scleral icterus. No injection or drainage. ENT: No nasal bleeding or discharge. Mucous membranes pink and moist. No oropharyngeal erythema or exudate. NECK: Trachea midline. No JVD. CARDIOVASCULAR: Regular rate and rhythm. No murmur appreciated. RESPIRATORY: No accessory muscle use. Clear to auscultation. Breath sounds equal bilaterally. No wheezing or rhonchi GASTROINTESTINAL: Abdomen soft, non-tender, nondistended. Hepatic and splenic margins not palpable. MUSCULOSKELETAL: No obvious deformities. No clubbing. No cyanosis. No edema. NEUROLOGICAL: Awake and alert. No obvious cranial nerve deficits. Motor grossly within normal limits. Normal speech. PSYCHIATRIC: Appropriate mood and affect; insight and judgment normal. Data Data Last Documented VS Vital Signs Date Time Temp Pulse Resp B/P (MAP) Pulse Ox O2 Delivery O2 Flow Rate FiO2 11/03/17 23:04 82 14 104/54 (71) 99 Room Air 11/03/17 22:36 97.7 Orders Orders Metoclopramide Inj (Reglan Inj) (11/03/17 23:00) Influenzae A/B Antigen (11/03/17 22:47) Chest, Single Ap (11/03/17 ) Ondansetron Inj (Zofran Inj) (11/03/17 23:30) Sodium Chlor 0.9% 1000 Ml Inj (Ns 1000 M (11/03/17 23:16) MDM Medical Decision Making Medical Screen Exam Complete: Yes Emergency Medical Condition: Yes Medical Record Reviewed: Yes Differential Diagnosis Influenza, pneumonia, bronchitis Narrative Course The patient was given IM Reglan. She continued to have some nausea so she was given some IV Zofran and fluids and she felt significantly improved. Influenza antigen test was performed and is negative. Chest x-ray is normal. Suspect viral upper respiratory infection. She is stable for discharge. Diagnosis Primary Impression: Upper respiratory infection Additional Instructions: Slowly advance diet as tolerated. Follow-up with primary care physician as needed and return for any emergent medical conditions. Med/Other Pt SpecificInfo: No Change to Meds Disposition: 01 DISCHARGE HOME Condition: Stable Gareth Scanlon Nov 03, 2017 22:50
[2017-11-03] MEDS ORDERED: METOCLOPRAMIDE HCL 10 MG/2 ML VIAL IM SCH (23:00)
[2017-11-03 23:04] VITALS: BP 104/54; PULSE 82; RESP 14; O2SAT 99
--- NOTE | 2017-11-03 23:04 | RADRPT ---
EXAM DATE/TIME: 11/03/2017 22:55 [facility] COMPARISON: CHEST SINGLE AP, October 15, 2017, 4:14. INDICATIONS : Short of breath. MEDICAL HISTORY : None. SURGICAL HISTORY : None. ENCOUNTER: Initial ACUITY: 1 day PAIN SCORE: 0/10 LOCATION: Bilateral chest FINDINGS: The lungs are clear without infiltrate, nodule, or mass. There is no appreciable pleural effusion fo r technique. Heart and mediastinum are unremarkable. Again noted is a BB type of metallic density ov erlapping the left proximal humerus. CONCLUSION: No acute cardiopulmonary disease. Ree Vu MD on November 03, 2017 at 23:02 Board Certified Radiologist. This report was verified electronically.
[2017-11-03] MEDS ORDERED: SODIUM CHLOR 0.9% 1000 ML INJ 1,000 ML IV SCH (23:16)
[2017-11-03] MEDS ORDERED: ONDANSETRON HCL 4 MG/2 ML VIAL IV PUSH ONE (23:30)
== END 2017-11-04 00:45 | disposition home or self-care (01) ==
LOC: NEPD 22:30
DX: J06.9 Acute upper respiratory infection, unspecified (principal); J45.909 Unspecified asthma, uncomplicated; K21.9 Gastro-esophageal reflux disease without esophagitis; F12.90 Cannabis use, unspecified, uncomplicated; Z86.73 Personal history of transient ischemic attack (TIA), and cerebral infarction without residual deficits
CPT/HCPCS: 71010; 87804; 96372; 96374; 99284; J2405; J2765; J7030

== ENCOUNTER 2017-11-17 19:54 | Emergency (ER) | payer OTHER ==
[~2017-11-17 19:54] MED LIST changes: -OMEP40CA2 PO; -REGL10TA5 PO
[2017-11-17 19:55] VITALS: BP 103/67; PULSE 70; RESP 16; TEMP 98.6; O2SAT 100
[2017-11-18] MEDS ORDERED: SODIUM CHLOR 0.9% 1000 ML INJ 1,000 ML IV SCH (00:24)
[2017-11-18] MEDS ORDERED: SODIUM CHLORIDE 0.9% FLUSH 10 ML FLUSH IV FLUSH PRN (00:30)
[2017-11-18] MEDS ORDERED: LIDOCAINE VISCOUS 2% SOLN 15 ML UDC PO ONE (00:30)
[2017-11-18] MEDS ORDERED: PANTOPRAZOLE SODIUM 40 MG VIAL IVP ONE (00:30)
[2017-11-18] MEDS ORDERED: ONDANSETRON HCL 4 MG/2 ML VIAL IVP ONE (00:30)
[2017-11-18] MEDS ORDERED: ALUMINUM/MAGNESIUM/SIMETH 30 ML CUP PO ONE (00:30)
--- NOTE | 2017-11-18 00:34 | PD ---
HPI Chief Complaint: Abdominal Pain Time Seen by Provider: 00:19 Travel History International Travel<30 days: No Contact w/Intl Traveler<30days: No Traveled to known affect area: No History of Present Illness HPI 37-year-old female here for evaluation of abdominal pain, nausea, vomiting, and diarrhea. The patient has been seen in the emergency department several times in the past with similar complaints. She was admitted to the hospital last month and had endoscopy and colonoscopy which showed gastritis and colitis. She was empirically treated with Cipro and Flagyl and her symptoms seem to have improved. She was post follow-up with the jewelry facer Dr. Lopez in 3 days, however she reports that her symptoms were so bad that she needed to come here. Patient reports feeling nausea, vomiting, and diarrhea for the last 5 days with mid abdominal pain for the last 3 days. Pain is described as soreness , moderate to severe, constant, intermittently worse at times. Patient has noted some blood in her emesis and states that her diarrhea is mucus, nonbloody. She has been taking Tylenol and ibuprofen and has not been taking the Protonix that was prescribed to her. History of cholecystectomy and appendectomy. Urinary symptoms. No vaginal bleeding or discharge. PFSH Past Medical History Hx Anticoagulant Therapy: Yes Asthma: Yes Blood Disorders: No Anxiety: No Depression: No Heart Rhythm Problems: No Cancer: No Cardiovascular Problems: No High Cholesterol: No Chemotherapy: No Chest Pain: No Congestive Heart Failure: No COPD: No Cerebrovascular Accident: Yes (2013) Diabetes: No Diminished Hearing: No Endocrine: No Gastrointestinal Disorders: Yes GERD: Yes Genitourinary: Yes Headaches: Yes Hypertension: No Immune Disorder: No Kidney Stones: Yes Musculoskeletal: No Neurologic: Yes Psychiatric: No Reproductive: No Respiratory: Yes (ASTHMA) Immunizations Current: Yes Migraines: Yes Myocardial Infarction: No Radiation Therapy: No Seizures: Yes (09/2017) Sleep Apnea: No Thyroid Disease: Yes ?: Not LMP: 11/10/17 : 3 Para: 3 Miscarriage: 0 : 0 Ovarian Cysts: Yes Tubal Ligation: Yes Past Surgical History Abdominal Surgery: Yes (GALLBLADDER, APPENDIX) AICD: No Appendectomy: Yes Cholecystectomy: Yes Hysterectomy: No Joint Replacement: No Pacemaker: No Other Surgery: No Social History Alcohol Use: No Tobacco Use: No Substance Use: Yes Allergies-Medications (Allergen,Severity, Reaction): Coded Allergies: butorphanol (Unverified Allergy, Severe, jitters, 11/17/17) cephalexin (Unverified Allergy, Severe, DOESN'T REMEMBER, 11/17/17) diatrizoate meglumine (Unverified Allergy, Severe, ITCHING ALL OVER BODY, 11/17/17) droperidol (Unverified Allergy, Severe, JITTERY, 11/17/17) gadobenic acid (Unverified Allergy, Severe, ITCHING ALL OVER BODY, 11/17/17) gadodiamide (Unverified Allergy, Severe, ITCHING ALL OVER BODY, 11/17/17) gadoteridol (Unverified Allergy, Severe, ITCHING ALL OVER BODY, 11/17/17) iodixanol (Unverified Allergy, Severe, ITCHING ALL OVER BODY, 11/17/17) iohexol (Unverified Allergy, Severe, ITCHING ALL OVER BODY, 11/17/17) ketorolac (Unverified Allergy, Severe, JUMPY, 11/17/17) prochlorperazine (Unverified Allergy, Severe, LEGS SHAKE, 11/17/17) JITTERY LEGS promethazine (Unverified Allergy, Severe, JITTERY, 11/17/17) penicillin G (Unverified Allergy, Mild, nausea, 11/17/17) alginic acid (Unverified Adverse Reaction, Severe, N&V, 11/17/17) aluminum hydroxide (Unverified Adverse Reaction, Severe, N&V, 11/17/17) calcium carbonate (Unverified Adverse Reaction, Severe, N&V, 11/17/17) magnesium (Unverified Adverse Reaction, Severe, N&V, 11/17/17) sodium bicarbonate (Unverified Adverse Reaction, Severe, N&V, 11/17/17) sulfisoxazole (Unverified Adverse Reaction, Severe, N&V, 11/17/17) Reported Meds & Prescriptions Reported Meds & Active Scripts Active Zofran Odt (Ondansetron Odt) 4 Mg Tab 4 Mg SL Q6HR PRN Reported Proair Hfa 8.5 GM Inh (Albuterol Sulfate) 90 Mcg/Act Aer 1 Puff INH Q4H PRN 108 mcg/actuation Review of Systems Except as stated in HPI: all other systems reviewed are Neg Physical Exam Narrative GENERAL: Well-developed, well-nourished, in position, dry heaving into emesis bag. SKIN: Focused skin assessment warm/dry. HEAD: Atraumatic. Normocephalic. EYES: Pupils equal and round. No scleral icterus. No injection or drainage. ENT: Mucous membranes pink and moist. NECK: Trachea midline. No JVD. CARDIOVASCULAR: Regular rate and rhythm. RESPIRATORY: No accessory muscle use. Clear to auscultation. Breath sounds equal bilaterally. GASTROINTESTINAL: Abdomen soft, nondistended. Mild diffuse tenderness without peritoneal signs. No hernias. No masses. Normal bowel sounds. MUSCULOSKELETAL: No obvious deformities. No clubbing. No cyanosis. No edema. NEUROLOGICAL: Awake and alert. No obvious cranial nerve deficits. Motor grossly within normal limits. Normal speech. PSYCHIATRIC: Appropriate mood and affect; insight and judgment normal. Data Data Last Documented VS Vital Signs Date Time Temp Pulse Resp B/P (MAP) Pulse Ox O2 Delivery O2 Flow Rate FiO2 11/18/17 00:52 16 100 Room Air 11/17/17 19:55 98.6 70 Orders Orders Complete Blood Count With Diff (11/18/17 00:24) Comprehensive Metabolic Panel (11/18/17 00:24) Lipase (11/18/17 00:24) Lactic Acid (11/18/17 00:24) Prothrombin Time / Inr (Pt) (11/18/17 00:24) Act Partial Throm Time (Ptt) (11/18/17 00:24) Urinalysis - C+S If Indicated (11/18/17 00:24) Iv Access Insert/Monitor (11/18/17 00:24) Ecg Monitoring (11/18/17 00:24) Oximetry (11/18/17 00:24) Ondansetron Inj (Zofran Inj) (11/18/17 00:30) Pantoprazole Inj (Protonix Inj) (11/18/17 00:30) Sodium Chlor 0.9% 1000 Ml Inj (Ns 1000 M (11/18/17 00:24) Sodium Chloride 0.9% Flush (Ns Flush) (11/18/17 00:30) Al-Mag Hy-Si 40-40-4 Mg/Ml Liq (Mag-Al P (1/9/18 00:30) Lidocaine 2% Viscous (Xylocaine 2% Visco (11/18/17 00:30) Ed Urine Pregnancytest Poc (11/18/17 00:24) Ct Abd/Pel W/O Iv Contrast (11/18/17 ) C Diff Toxin Pcr (11/18/17 00:26) Morphine Inj (Morphine Inj) (11/18/17 00:45) Labs Laboratory Tests Test 11/18/17 00:45 White Blood Count 8.7 TH/MM3 Red Blood Count 4.33 MIL/MM3 Hemoglobin 13.4 GM/DL Hematocrit 38.9 % Mean Corpuscular Volume 89.8 FL Mean Corpuscular Hemoglobin 31.0 PG Mean Corpuscular Hemoglobin Concent 34.5 % Red Cell Distribution Width 12.3 % Platelet Count 202 TH/MM3 Mean Platelet Volume 8.6 FL Neutrophils (%) (Auto) 73.9 % Lymphocytes (%) (Auto) 20.8 % Monocytes (%) (Auto) 5.0 % Eosinophils (%) (Auto) 0.0 % Basophils (%) (Auto) 0.3 % Neutrophils # (Auto) 6.4 TH/MM3 Lymphocytes # (Auto) 1.8 TH/MM3 Monocytes # (Auto) 0.4 TH/MM3 Eosinophils # (Auto) 0.0 TH/MM3 Basophils # (Auto) 0.0 TH/MM3 CBC Comment DIFF FINAL Differential Comment MDM Medical Decision Making Medical Screen Exam Complete: Yes Emergency Medical Condition: Yes Medical Record Reviewed: Yes Differential Diagnosis Gastroenteritis, dehydration, metabolic abnormality, colitis, C. difficile colitis, ischemic colitis, UTI, cystitis Narrative Course At approximately 1 AM at the end of my shift the patient was signed out to my PA Олег Vuong to follow-up with labs, CT, and disposition. Bimal Flores MD Nov 18, 2017 00:34
[2017-11-18] MEDS ORDERED: MORPHINE SULFATE 2 MG/ML INJ IV PUSH ONE (00:45)
[2017-11-18 00:52] VITALS: RESP 16; O2SAT 100
[2017-11-18 00:59] LABS: AUTOMATED NEUTROPHIL # 6.4 TH/MM3 (1.8-7.7); BASOPHIL % 0.3 % (0.0-2.0); HEMATOCRIT 38.9 % (35.0-46.0); HEMOGLOBIN 13.4 GM/DL (11.6-15.3); LYMPH % 20.8 % (9.0-44.0); LYMPHOCYTE # 1.8 TH/MM3 (1.0-4.8); MEAN CELL VOLUME 89.8 FL (80.0-100.0); MEAN CORPUSCULAR HGB CONC 34.5 % (32.0-36.0); MEAN PLATELET VOLUME 8.6 FL (7.0-11.0); MONOCYTE # 0.4 TH/MM3 (0-0.9); NEUT % 73.9 % (16.0-70.0); PLATELET COUNT 202 TH/MM3 (150-450); RED BLOOD COUNT 4.33 MIL/MM3 (4.00-5.30); RED CELL DISTRIBUTION WIDTH 12.3 % (11.6-17.2); WHITE BLOOD COUNT 8.7 TH/MM3 (4.0-11.0)
[2017-11-18 01:00] VITALS: BP 110/68; PULSE 72; RESP 18; O2SAT 99
[2017-11-18 01:07] LABS: INTERNATIONAL NORMALIZED RATIO 1.1 RATIO; PROTHROMBIN TIME - PATIENT 11.4 SEC (9.8-11.6)
[2017-11-18 01:08] LABS: BILIRUBIN, URINE NEG (NEG); BLOOD, URINE NEG (NEG); GLUCOSE,URINE NEG (NEG); KETONE, URINE NEG (NEG); MUCUS URINE MANY /lpf (OCC); NITRITE,URINE NEG (NEG); PH, URINE 6.5 (5.0-8.5); SQUAMOUS EPITHELIAL CELL URINE 6 /hpf (0-5); URINE COLOR YELLOW (YELLW/STRAW); URINE LEUKOCYTE ESTERASE SMALL (NEG)
[2017-11-18 01:21] LABS: ALKALINE PHOSPHATASE 75 U/L (45-117); TOTAL BILIRUBIN ADULT 0.4 MG/DL (0.2-1.0); TOTAL PROTEIN 7.9 GM/DL (6.4-8.2)
[2017-11-18 01:23] LABS: ALT (GPT) 17 U/L (10-53); AST (GOT) 26 U/L (15-37); BICARBONATE 26.1 MEQ/L (21.0-32.0); BLOOD UREA NITROGEN 8 MG/DL (7-18); CHLORIDE 104 MEQ/L (98-107); CREATININE 0.62 MG/DL (0.50-1.00); GLOMERULAR FILTRATION RATE 130 ML/MIN (>89); GLUCOSE,RANDOM 97 MG/DL (74-106); LIPASE 319 U/L (73-393); SODIUM (NA) 138 MEQ/L (136-145)
--- NOTE | 2017-11-18 02:06 | RADRPT ---
EXAM DATE/TIME: 11/18/2017 01:28 [facility] COMPARISON: CT ABDOMEN & PELVIS W/O CONTRAST, October 15, 2017, 5:26. INDICATIONS : Abdominal pain. ORAL CONTRAST: No oral contrast ingested. RADIATION DOSE: 4.98 CTDIvol (mGy) MEDICAL HISTORY : Cerebrovascular disease. Renal calculi. Asthma, substance abuse SURGICAL HISTORY : Appendectomy. Cholecystectomy.Tubal ligation. ENCOUNTER: Initial ACUITY: 1 day PAIN SCALE: 6/10 LOCATION: abdomen TECHNIQUE: Volumetric scanning of the abdomen and pelvis was performed. Using automated exposure control and ad justment of the mA and/or kV according to patient size, radiation dose was kept as low as reasonably achievable to obtain optimal diagnostic quality images. DICOM format image data is available electro nically for review and comparison. FINDINGS: Examination of the lung bases demonstrates no abnormality. No pleural fluid is identified. No pulmona ry nodules are present. The liver and spleen are normal in size and no focal defects are identified. The gallbladder is absent. The pancreas demonstrates normal contour without evidence of mass or ducta l dilatation. The adrenal glands and kidneys appear normal bilaterally. No hydronephrosis or mass les ions are identified. Examination of the pelvis demonstrates no evidence of free fluid or pelvic mass. No abnormally enlarg ed inguinal or retroperitoneal lymph nodes are present. The bladder is unremarkable. CONCLUSION: 1. No evidence of acute abdominal or pelvic process. No masses are identified. Osmin Hua MD on November 18, 2017 at 1:58 Board Certified Radiologist. This report was verified electronically.
[2017-11-18] MEDS ORDERED: RESP: ALBUTEROL 2.5 MG/3 ML NEB (SCH) INH ONE (02:45)
[2017-11-18] MEDS ORDERED: ZOFR4TAB3 SL (02:55)
[2017-11-18] MEDS ORDERED: LEVS0.124 SL (02:55)
[2017-11-18] MEDS ORDERED: ALBUAER3 INH (02:55)
--- NOTE | 2017-11-18 03:00 | PD ---
Physical Exam Date Seen by Provider: Nov 18, 2017 Time Seen by Provider: 02:56 Narrative GENERAL: This is a well-nourished, well-developed patient, in no apparent distress. SKIN: No rashes, ecchymoses or lesions. Warm and dry. HEAD: Atraumatic. Normocephalic. EYES: PERRL, EOMI, no discharge or injection. No scleral icterus. EARS: Clear NOSE: Nasal turbinates appear normal. THROAT: Mucosa pink and moist. Airway patent. NECK: Trachea midline. supple, moves head freely. LUNGS: Clear to auscultation. CV: Regular in rhythm. ABDOMEN: Soft nontender. EXT: No clubbing cyanosis or edema. Data Data Last Documented VS Vital Signs Date Time Temp Pulse Resp B/P (MAP) Pulse Ox O2 Delivery O2 Flow Rate FiO2 11/18/17 00:52 16 100 Room Air 11/17/17 19:55 98.6 70 Orders Orders Complete Blood Count With Diff (11/18/17:24) Comprehensive Metabolic Panel (11/18/17 00:24) Lipase (11/18/17 00:24) Lactic Acid (11/18/17 00:24) Prothrombin Time / Inr (Pt) (11/18/17:24) Act Partial Throm Time (Ptt) (11/18/17:24) Urinalysis - C+S If Indicated (11/18/17 00:24) Iv Access Insert/Monitor (11/18/17 00:24) Ecg Monitoring (11/18/17:24) Oximetry (11/18/17 00:24) Ondansetron Inj (Zofran Inj) (11/18/17 00:30) Pantoprazole Inj (Protonix Inj) (11/18/17 00:30) Sodium Chlor 0.9% 1000 Ml Inj (Ns 1000 M (11/18/17 00:24) Sodium Chloride 0.9% Flush (Ns Flush) (11/18/17 00:30) Al-Mag Hy-Si 40-40-4 Mg/Ml Liq (Mag-Al P (11/18/17 00:30) Lidocaine 2% Viscous (Xylocaine 2% Visco (11/18/17 00:30) Ed Urine Pregnancytest Poc (11/18/17 00:24) Ct Abd/Pel W/O Iv Contrast (11/18/17 ) C Diff Toxin Pcr (11/18/17 00:26) Morphine Inj (Morphine Inj) (11/18/17 00:45) Albuterol Neb (Albuterol Neb) (11/18/17 02:45) Ed Discharge Order (11/18/17 02:55) Labs Laboratory Tests Test 11/18/17 00:45 White Blood Count 8.7 TH/MM3 Red Blood Count 4.33 MIL/MM3 Hemoglobin 13.4 GM/DL Hematocrit 38.9 % Mean Corpuscular Volume 89.8 FL Mean Corpuscular Hemoglobin 31.0 PG Mean Corpuscular Hemoglobin Concent 34.5 % Red Cell Distribution Width 12.3 % Platelet Count 202 TH/MM3 Mean Platelet Volume 8.6 FL Neutrophils (%) (Auto) 73.9 % Lymphocytes (%) (Auto) 20.8 % Monocytes (%) (Auto) 5.0 % Eosinophils (%) (Auto) 0.0 % Basophils (%) (Auto) 0.3 % Neutrophils # (Auto) 6.4 TH/MM3 Lymphocytes # (Auto) 1.8 TH/MM3 Monocytes # (Auto) 0.4 TH/MM3 Eosinophils # (Auto) 0.0 TH/MM3 Basophils # (Auto) 0.0 TH/MM3 CBC Comment DIFF FINAL Differential Comment Prothrombin Time 11.4 SEC Prothromb Time International Ratio 1.1 RATIO Activated Partial Thromboplast Time 25.8 SEC Urine Color YELLOW Urine Turbidity HAZY Urine pH 6.5 Urine Specific [place] 1.024 Urine Protein 30 mg/dL Urine Glucose (UA) NEG mg/dL Urine Ketones NEG mg/dL Urine Occult Blood NEG Urine Nitrite NEG Urine Bilirubin NEG Urine Urobilinogen LESS THAN 2.0 MG/DL Urine Leukocyte Esterase SMALL Urine RBC LESS THAN 1 /hpf Urine WBC 2 /hpf Urine Squamous Epithelial Cells 6 /hpf Urine Mucus MANY /lpf Microscopic Urinalysis Comment CULT NOT INDICATED Blood Urea Nitrogen 8 MG/DL Creatinine 0.62 MG/DL Random Glucose 97 MG/DL Total Protein 7.9 GM/DL Albumin 4.0 GM/DL Calcium Level 9.0 MG/DL Alkaline Phosphatase 75 U/L Aspartate Amino Transf (AST/SGOT) 26 U/L Alanine Aminotransferase (ALT/SGPT) 17 U/L Total Bilirubin 0.4 MG/DL Sodium Level 138 MEQ/L Potassium Level 3.9 MEQ/L Chloride Level 104 MEQ/L Carbon Dioxide Level 26.1 MEQ/L Anion Gap 8 MEQ/L Estimat Glomerular Filtration Rate 130 ML/MIN Lactic Acid Level 0.9 mmol/L Lipase 319 U/L [facility] Medical Record Reviewed: Yes Supervised Visit with LISA: Yes Interpretation(s) Lactic negative Amylase negative. CBC & BMP Diagram 11/18/17 00:45 Total Protein 7.9, Albumin 4.0, Calcium Level 9.0, Alkaline Phosphatase 75, Aspartate Amino Transf (AST/SGOT) 26, Alanine Aminotransferase (ALT/SGPT) 17, Total Bilirubin 0.4 Last 24 hours Impressions Abdomen/Pelvis CT 11/18/17 0000 Signed Impressions: Service Date/Time: Saturday, November 18, 2017 01:28 - CONCLUSION: 1. No evidence of acute abdominal or pelvic process. No masses are identified. Osmni Hua MD Differential Diagnosis MDM: High Differential diagnoses: Acute appendicitis, acute pancreatitis, diverticulitis, hepatitis, colitis, ischemic bowel, bowel instruction, nonspecific abdominal pain, gastroparesis, electrolyte abnormality, dehydration, drug-seeking, malingering Narrative Course IV access is obtained. Patient given normal saline, routine laboratory tests including CT of the abdomen has been performed. The CT shows no acute intra-abdominal process. Patient's laboratory tests have been reviewed. The patient during her exam here has requested an albuterol treatment. She is given albuterol 2.5 mg. She is also asked for prescription refill. Patient's exam of the abdomen is soft and nontender. She is feeling much better. Patient is unable to give a stool specimen for CDT. With a negative CT scan and normal labs I do not believe she needs to eat and had the stool done prior to being discharged. Patient be given prescriptions for albuterol, Zofran, and Levsin. She has an appointment to see Dr. Tijerina on . Diagnosis Primary Impression: abdominal pain Additional Impression: asthma Patient Instructions: General Instructions Departure Forms: Tests/Procedures, Work Release Special Instructions: No work 2 days Additional Instruction: Rest. Increase fluids. Advance diet as tolerated. Medications as written. Follow-up with your GI doctor as scheduled on . Follow-up with a primary care doctor within 1 week. Return to the ER if any problems. Med/Other Pt SpecificInfo: Prescription(s) given Scripts Hyoscyamine Odt (Levsin-SL) 0.125 Mg Subl 0.25 MG SL Q6H for Gastrointestinal disorders, #20 TAB.SL 0 Refills Prov: Bimal Flores MD 11/18/17 Ondansetron Odt (Zofran Odt) 4 Mg Tab 4 MG SL Q6HR Y for Nausea/Vomiting, #15 TAB 0 Refills Prov: Bimal Flores MD 11/18/17 Albuterol 8.5 GM Inh (Proair Hfa 8.5 GM Inh) 90 Mcg/Act Aer 1 PUFF INH Q4H Y for SHORTNESS OF BREATH, #1 INHALER 0 Refills 108 mcg/actuation Prov: Bimal Flores MD 11/18/17 Disposition: 01 DISCHARGE HOME Condition: Stable Scott Jose Nov 18, 2017 03:00
== END 2017-11-18 03:16 | disposition home or self-care (01) ==
LOC: NEPD 19:54
DX: R10.9 Unspecified abdominal pain (principal); J45.909 Unspecified asthma, uncomplicated; R11.2 Nausea with vomiting, unspecified; R19.7 Diarrhea, unspecified; K21.9 Gastro-esophageal reflux disease without esophagitis; R56.9 Unspecified convulsions; E07.9 Disorder of thyroid, unspecified; Z86.73 Personal history of transient ischemic attack (TIA), and cerebral infarction without residual deficits; Z87.442 Personal history of urinary calculi
CPT/HCPCS: 74176; 80053; 81001; 83605; 83690; 84703; 85025; 85610; 85730; 94664; 96361; 96374; 96375; 99285; C9113; J2270; J2405; J7030; J7613

== ENCOUNTER 2018-02-01 10:59 | Emergency (ER) | payer OTHER ==
[~2018-02-01] VITALS: Ht 149.9 cm; Wt 53.0 kg
[~2018-02-01 10:59] MED LIST changes: +LEVS0.124 SL
[2018-02-01 11:03] VITALS: BP 114/67; PULSE 62; RESP 18; TEMP 98; O2SAT 99
[2018-02-01] MEDS ORDERED: SODIUM CHLOR 0.9% 1000 ML INJ 1,000 ML IV SCH (13:09)
[2018-02-01] MEDS ORDERED: ONDANSETRON HCL 4 MG/2 ML VIAL IVP ONE (13:15)
[2018-02-01] MEDS ORDERED: FAMOTIDINE 20 MG/2 ML VIAL IV PUSH ONE (13:15)
[2018-02-01] MEDS ORDERED: SODIUM CHLORIDE 0.9% FLUSH 10 ML FLUSH IV FLUSH PRN (13:15)
[2018-02-01 13:17] VITALS: RESP 18
[2018-02-01 14:04] LABS: AUTOMATED NEUTROPHIL # 4.5 TH/MM3 (1.8-7.7); BASOPHIL % 0.4 % (0.0-2.0); EOSINOPHIL % 0.1 % (0.0-4.0); HEMATOCRIT 37.2 % (35.0-46.0); HEMOGLOBIN 12.7 GM/DL (11.6-15.3); LYMPH % 20.3 % (9.0-44.0); LYMPHOCYTE # 1.3 TH/MM3 (1.0-4.8); MEAN CELL VOLUME 90.2 FL (80.0-100.0); MEAN CORPUSCULAR HEMOGLOBIN 30.8 PG (27.0-34.0); MEAN CORPUSCULAR HGB CONC 34.2 % (32.0-36.0); MEAN PLATELET VOLUME 8.1 FL (7.0-11.0); MONO % 5.8 % (0.0-8.0); MONOCYTE # 0.4 TH/MM3 (0-0.9); NEUT % 73.4 % (16.0-70.0); PLATELET COUNT 241 TH/MM3 (150-450); RED BLOOD COUNT 4.13 MIL/MM3 (4.00-5.30); RED CELL DISTRIBUTION WIDTH 12.5 % (11.6-17.2); WHITE BLOOD COUNT 6.2 TH/MM3 (4.0-11.0)
[2018-02-01 14:13] LABS: BILIRUBIN, URINE NEG (NEG); BLOOD, URINE NEG (NEG); GLUCOSE,URINE NEG (NEG); KETONE, URINE 40 mg/dL (NEG); MUCUS URINE MANY /lpf (OCC); NITRITE,URINE NEG (NEG); PH, URINE 6.5 (5.0-8.5); SQUAMOUS EPITHELIAL CELL URINE 11 /hpf (0-5); URINE COLOR YELLOW (YELLW/STRAW); URINE LEUKOCYTE ESTERASE MOD (NEG)
--- NOTE | 2018-02-01 14:14 | PD ---
HPI Chief Complaint: Abdominal Pain Time Seen by Provider: 13:04 Travel History International Travel<30 days: No Contact w/Intl Traveler<30days: No Traveled to known affect area: No History of Present Illness HPI Patient is a 37-year-old female who comes in complaining of nausea, vomiting, diarrhea. She says this started Friday. She says the last time she vomited or had diarrhea was this morning. She says she tried to drink something and then vomited. She denies fever chills. She denies abdominal pain. She denies any sick contacts. Severity is mild to moderate. PFSH Past Medical History Hx Anticoagulant Therapy: Yes Asthma: Yes Blood Disorders: No Anxiety: No Depression: No Heart Rhythm Problems: No Cancer: No Cardiovascular Problems: No High Cholesterol: No Chemotherapy: No Chest Pain: No Congestive Heart Failure: No COPD: No Cerebrovascular Accident: Yes (2013) Diabetes: No Diminished Hearing: No Endocrine: No Gastrointestinal Disorders: Yes GERD: Yes Genitourinary: Yes Headaches: Yes Hypertension: No Immune Disorder: No Implanted Vascular Access Dvce: No Kidney Stones: Yes Musculoskeletal: No Neurologic: Yes Psychiatric: No Reproductive: No Respiratory: Yes (ASTHMA) Immunizations Current: Yes Migraines: Yes Myocardial Infarction: No Radiation Therapy: No Seizures: Yes (09/2017) Sleep Apnea: No Thyroid Disease: Yes ?: Not LMP: 01/27/18 : 3 Para: 3 Miscarriage: 0 : 0 Ovarian Cysts: Yes Tubal Ligation: Yes Past Surgical History Abdominal Surgery: Yes (GALLBLADDER, APPENDIX) AICD: No Appendectomy: Yes Cholecystectomy: Yes Hysterectomy: No Joint Replacement: No Pacemaker: No Other Surgery: No Social History Alcohol Use: No Tobacco Use: No Substance Use: Yes ([facility]) Allergies-Medications (Allergen,Severity, Reaction): Coded Allergies: butorphanol (Unverified Allergy, Severe, jitters, 02/01/18) cephalexin (Unverified Allergy, Severe, DOESN'T REMEMBER, 02/01/18) diatrizoate meglumine (Unverified Allergy, Severe, ITCHING ALL OVER BODY, 02/01/18) droperidol (Unverified Allergy, Severe, JITTERY, 02/01/18) gadobenic acid (Unverified Allergy, Severe, ITCHING ALL OVER BODY, 02/01/18 ) gadodiamide (Unverified Allergy, Severe, ITCHING ALL OVER BODY, 02/01/18) gadoteridol (Unverified Allergy, Severe, ITCHING ALL OVER BODY, 02/01/18) iodixanol (Unverified Allergy, Severe, ITCHING ALL OVER BODY, 02/01/18) iohexol (Unverified Allergy, Severe, ITCHING ALL OVER BODY, 02/01/18) ketorolac (Unverified Allergy, Severe, JUMPY, 02/01/18) prochlorperazine (Unverified Allergy, Severe, LEGS SHAKE, 02/01/18) JITTERY LEGS promethazine (Unverified Allergy, Severe, JITTERY, 02/01/18) penicillin G (Unverified Allergy, Mild, nausea, 02/01/18) alginic acid (Unverified Adverse Reaction, Severe, N&V, 02/01/18) aluminum hydroxide (Unverified Adverse Reaction, Severe, N&V, 02/01/18) calcium carbonate (Unverified Adverse Reaction, Severe, N&V, 02/01/18) magnesium (Unverified Adverse Reaction, Severe, N&V, 02/01/18) sodium bicarbonate (Unverified Adverse Reaction, Severe, N&V, 02/01/18) sulfisoxazole (Unverified Adverse Reaction, Severe, N&V, 02/01/18) Reported Meds & Prescriptions Reported Meds & Active Scripts Active Levsin-SL (Hyoscyamine Sulfate) 0.125 Mg Subl 0.25 Mg SL Q6H Zofran Odt (Ondansetron Odt) 4 Mg Tab 4 Mg SL Q6HR PRN Proair Hfa 8.5 GM Inh (Albuterol Sulfate) 90 Mcg/Act Aer 1 Puff INH Q4H PRN 108 mcg/actuation Review of Systems Except as stated in HPI: all other systems reviewed are Neg General / Constitutional: No: Fever, Chills HENT: No: Headaches, Lightheadedness Cardiovascular: No: Chest Pain or Discomfort Respiratory: No: Shortness of Breath Gastrointestinal: Positive: Nausea, Vomiting, Diarrhea, No: Abdominal Pain Genitourinary: No: Dysuria Skin: No Rash Physical Exam Narrative GENERAL: Awake and alert, in no acute distress. SKIN: Focused skin assessment warm/dry. HEAD: Atraumatic. Normocephalic. EYES: Pupils equal and round. No scleral icterus. ENT: Mucous membranes pink and moist. NECK: Trachea midline. No JVD. CARDIOVASCULAR: Regular rate and rhythm. No murmur appreciated. RESPIRATORY: No accessory muscle use. Clear to auscultation. Breath sounds equal bilaterally. GASTROINTESTINAL: Abdomen soft, non-tender, nondistended. MUSCULOSKELETAL: No obvious deformities. No clubbing. No cyanosis. No edema. NEUROLOGICAL: Awake and alert. No obvious cranial nerve deficits. Motor grossly within normal limits. Normal speech. PSYCHIATRIC: Appropriate mood and affect; insight and judgment normal. Data Data Last Documented VS Vital Signs Date Time Temp Pulse Resp B/P (MAP) Pulse Ox O2 Delivery O2 Flow Rate FiO2 02/01/18 13:17 18 02/01/18 11:03 98.0 62 114/67 (83) 99 Orders Orders Complete Blood Count With Diff (02/01/18 13:09) Comprehensive Metabolic Panel (02/01/18 13:09) Urinalysis - C+S If Indicated (02/01/18 13:09) Iv Access Insert/Monitor (02/01/18 13:09) Ecg Monitoring (02/01/18 13:09) Oximetry (02/01/18 13:09) Ondansetron Inj (Zofran Inj) (02/01/18 13:15) Sodium Chlor 0.9% 1000 Ml Inj (Ns 1000 M (02/01/18 13:09) Sodium Chloride 0.9% Flush (Ns Flush) (02/01/18 13:15) Famotidine Inj (Pepcid Inj) (02/01/18 13:15) Ed Urine Pregnancytest Poc (02/01/18 13:09) Urine Culture (02/01/18 13:30) Metoclopramide Inj (Reglan Inj) (02/01/18 15:30) Ct Abd/Pel W/O Iv Contrast (02/01/18 ) Labs Laboratory Tests Test 02/01/18 13:30 02/01/18 13:34 Urine Color YELLOW Urine Turbidity HAZY Urine pH 6.5 Urine Specific [place] 1.033 Urine Protein 30 mg/dL Urine Glucose (UA) NEG mg/dL Urine Ketones 40 mg/dL Urine Occult Blood NEG Urine Nitrite NEG Urine Bilirubin NEG Urine Urobilinogen 4.0 MG/DL Urine Leukocyte Esterase MOD Urine RBC 1 /hpf Urine WBC 15 /hpf Urine Squamous Epithelial Cells 11 /hpf Urine Mucus MANY /lpf Microscopic Urinalysis Comment CULTURE INDICATED White Blood Count 6.2 TH/MM3 Red Blood Count 4.13 MIL/MM3 Hemoglobin 12.7 GM/DL Hematocrit 37.2 % Mean Corpuscular Volume 90.2 FL Mean Corpuscular Hemoglobin 30.8 PG Mean Corpuscular Hemoglobin Concent 34.2 % Red Cell Distribution Width 12.5 % Platelet Count 241 TH/MM3 Mean Platelet Volume 8.1 FL Neutrophils (%) (Auto) 73.4 % Lymphocytes (%) (Auto) 20.3 % Monocytes (%) (Auto) 5.8 % Eosinophils (%) (Auto) 0.1 % Basophils (%) (Auto) 0.4 % Neutrophils # (Auto) 4.5 TH/MM3 Lymphocytes # (Auto) 1.3 TH/MM3 Monocytes # (Auto) 0.4 TH/MM3 Eosinophils # (Auto) 0.0 TH/MM3 Basophils # (Auto) 0.0 TH/MM3 CBC Comment DIFF FINAL Differential Comment Blood Urea Nitrogen 10 MG/DL Creatinine 0.72 MG/DL Random Glucose 105 MG/DL Total Protein 7.3 GM/DL Albumin 3.7 GM/DL Calcium Level 8.7 MG/DL Alkaline Phosphatase 73 U/L Aspartate Amino Transf (AST/SGOT) 14 U/L Alanine Aminotransferase (ALT/SGPT) 12 U/L Total Bilirubin 0.4 MG/DL Sodium Level 138 MEQ/L Potassium Level 3.3 MEQ/L Chloride Level 102 MEQ/L Carbon Dioxide Level 31.6 MEQ/L Anion Gap 4 MEQ/L Estimat Glomerular Filtration Rate 109 ML/MIN [facility] Medical Decision Making Medical Screen Exam Complete: Yes Emergency Medical Condition: Yes Medical Record Reviewed: Yes Differential Diagnosis Gastroenteritis versus dehydration versus gastritis versus colitis Narrative Course Patient is a 37-year-old female who comes in complaining of nausea and vomiting. Exam shows no abdominal tenderness. IV established, labs sent. Labs show no acute abnormalities. Patient given IV fluids, Zofran. She tried to drink some water and then vomited again. Given a dose of Reglan. She reports feeling much better after the Reglan she was able to drink Gatorade without vomiting. Urinalysis does show some evidence of infection, and she is having some dysuria on questioning again. She will be discharged with prescriptions for Reglan, Macrobid, and albuterol inhaler (per patient's request ). She is advised to drink plenty of fluids. Advised to eat a bland diet. Advised follow-up with her doctor. Advised return to the ED as needed for any worsening symptoms. Diagnosis Primary Impression: Nausea & vomiting Qualified Codes: R11.2 - Nausea with vomiting, unspecified Additional Impression: UTI (urinary tract infection) Qualified Codes: N30.00 - Acute cystitis without hematuria Patient Instructions: Acute Nausea and Vomiting (ED), General Instructions, Urinary Tract Infection in Women (ED) Additional Instructions: Drink plenty of fluids. Take all of your antibiotic. Take Reglan as needed for nausea. Follow-up with your doctor. Return to the ED as needed for any worsening symptoms. Scripts Albuterol 18 GM Inh (Ventolin Hfa 18 GM Inh) 90 Mcg/Act Aer 2 PUFF INH Q4-6H Y for SHORTNESS OF BREATH, #1 INHALER 0 Refills Prov: Glendy Beyer MD 02/01/18 Nitrofurantoin Monohydrate Macrocrystals (Macrobid) 100 Mg Capsule 100 MG PO BID for Infection for 5 Days, #10 CAP 0 Refills Prov: Glendy Beyer MD 02/01/18 Metoclopramide (Reglan) 10 Mg Tab 10 MG PO QID Y for NAUSEA, #12 TAB 0 Refills Prov: Glendy Beyer MD 02/01/18 Disposition: 01 DISCHARGE HOME Condition: Stable Glendy Beyer MD Feb 01, 2018 14:14
[2018-02-01 14:24] LABS: ALBUMIN 3.7 GM/DL (3.4-5.0); ALT (GPT) 12 U/L (10-53); AST (GOT) 14 U/L (15-37); BICARBONATE 31.6 MEQ/L (21.0-32.0); BLOOD UREA NITROGEN 10 MG/DL (7-18); CALCIUM 8.7 MG/DL (8.5-10.1); CHLORIDE 102 MEQ/L (98-107); CREATININE 0.72 MG/DL (0.50-1.00); GLOMERULAR FILTRATION RATE 109 ML/MIN (>89); GLUCOSE,RANDOM 105 MG/DL (74-106); SODIUM (NA) 138 MEQ/L (136-145)
[2018-02-01 14:26] LABS: ALKALINE PHOSPHATASE 73 U/L (45-117); TOTAL BILIRUBIN ADULT 0.4 MG/DL (0.2-1.0); TOTAL PROTEIN 7.3 GM/DL (6.4-8.2)
[2018-02-01] MEDS ORDERED: METOCLOPRAMIDE INJ 10 MG in SODIUM CHLORIDE 0.9% INJ 50 ML IV ONE (15:30)
[2018-02-01] MEDS ORDERED: REGL10TA5 PO (16:49)
[2018-02-01] MEDS ORDERED: MACR100C2 PO (16:49)
[2018-02-01] MEDS ORDERED: VENTAER INH (16:49)
== END 2018-02-01 17:14 | disposition home or self-care (01) ==
LOC: NEPD 10:59
DX: R11.2 Nausea with vomiting, unspecified (principal); N30.00 Acute cystitis without hematuria; J45.909 Unspecified asthma, uncomplicated; K21.9 Gastro-esophageal reflux disease without esophagitis; F12.90 Cannabis use, unspecified, uncomplicated; Z86.73 Personal history of transient ischemic attack (TIA), and cerebral infarction without residual deficits; Z87.442 Personal history of urinary calculi
CPT/HCPCS: 80053; 81001; 84703; 85025; 87086; 96361; 96374; 96375; 99284; J2405; J2765; J7030

== ENCOUNTER 2018-03-16 18:17 | Emergency (ER) | payer OTHER ==
[~2018-03-16] VITALS: Ht 149.9 cm; Wt 55.0 kg
[~2018-03-16 18:17] MED LIST changes: +MACR100C2 PO; +REGL10TA5 PO; +VENTAER INH
[2018-03-16 18:27] VITALS: BP 95/60; PULSE 80; RESP 18; TEMP 98.5; O2SAT 99
[2018-03-16 20:49] VITALS: BP 105/54; PULSE 68; RESP 18; O2SAT 100
[2018-03-16] MEDS ORDERED: SODIUM CHLOR 0.9% 1000 ML INJ 1,000 ML IV SCH (21:11)
--- NOTE | 2018-03-16 21:14 | PD ---
HPI Chief Complaint: GI Complaint Time Seen by Provider: 20:53 Travel History International Travel<30 days: No Contact w/Intl Traveler<30days: No Traveled to known affect area: No History of Present Illness HPI Patient 37-year-old female with a history of what she describes as chronic gastritis followed by property underwriter presents emergency department for evaluation of a 3 day history of nausea and vomiting of food products nonbilious nonbloody and constipation. Patient attributes her symptoms to eating bad physician states her mother was sick as well but she is gotten better but the patient has not. No fevers no cough no congestion no blood in the stool no melena. States her abdomen is just kind of achy. She has been taking Zofran she is prescribed at home without relief. Symptoms moderate, for the past 3 days, context and associated signs symptoms as above PFSH Past Medical History Hx Anticoagulant Therapy: Yes Asthma: Yes Blood Disorders: No Anxiety: No Depression: No Heart Rhythm Problems: No Cancer: No Cardiovascular Problems: No High Cholesterol: No Chemotherapy: No Chest Pain: No Congestive Heart Failure: No COPD: No Cerebrovascular Accident: Yes (2013) Diabetes: No Diminished Hearing: No Endocrine: No Gastrointestinal Disorders: Yes GERD: Yes Genitourinary: Yes Headaches: Yes Hypertension: No Immune Disorder: No Implanted Vascular Access Dvce: No Kidney Stones: Yes Musculoskeletal: No Neurologic: Yes Psychiatric: No Reproductive: No Respiratory: Yes (ASTHMA) Immunizations Current: Yes Migraines: Yes Myocardial Infarction: No Radiation Therapy: No Seizures: Yes (09/2017) Sleep Apnea: No Thyroid Disease: Yes Tetanus Vaccination: < 5 Years Influenza Vaccination: No ?: Not LMP: right now : 3 Para: 3 Miscarriage: 0 : 0 Ovarian Cysts: Yes Tubal Ligation: Yes Past Surgical History Abdominal Surgery: Yes (GALLBLADDER, APPENDIX) AICD: No Appendectomy: Yes Cholecystectomy: Yes Hysterectomy: No Joint Replacement: No Pacemaker: No Other Surgery: No Social History Alcohol Use: No Tobacco Use: No Substance Use: Yes ([facility]) Allergies-Medications (Allergen,Severity, Reaction): Coded Allergies: butorphanol (Unverified Allergy, Severe, jitters, 03/16/18) cephalexin (Unverified Allergy, Severe, DOESN'T REMEMBER, 03/16/18) diatrizoate meglumine (Unverified Allergy, Severe, ITCHING ALL OVER BODY, 03/16/18) droperidol (Unverified Allergy, Severe, JITTERY, 03/16/18) gadobenic acid (Unverified Allergy, Severe, ITCHING ALL OVER BODY, 03/16/18) gadodiamide (Unverified Allergy, Severe, ITCHING ALL OVER BODY, 03/16/18) gadoteridol (Unverified Allergy, Severe, ITCHING ALL OVER BODY, 03/16/18) iodixanol (Unverified Allergy, Severe, ITCHING ALL OVER BODY, 03/16/18) iohexol (Unverified Allergy, Severe, ITCHING ALL OVER BODY, 03/16/18) ketorolac (Unverified Allergy, Severe, JUMPY, 03/16/18) prochlorperazine (Unverified Allergy, Severe, LEGS SHAKE, 03/16/18) JITTERY LEGS promethazine (Unverified Allergy, Severe, JITTERY, 03/16/18) penicillin G (Unverified Allergy, Mild, nausea, 03/16/18) alginic acid (Unverified Adverse Reaction, Severe, N&V, 03/16/18) aluminum hydroxide (Unverified Adverse Reaction, Severe, N&V, 03/16/18) calcium carbonate (Unverified Adverse Reaction, Severe, N&V, 03/16/18) magnesium (Unverified Adverse Reaction, Severe, N&V, 03/16/18) sodium bicarbonate (Unverified Adverse Reaction, Severe, N&V, 03/16/18) sulfisoxazole (Unverified Adverse Reaction, Severe, N&V, 03/16/18) Reported Meds & Prescriptions Reported Meds & Active Scripts Active Macrobid (Nitrofurantoin Monohydrate Macrocrystals) 100 Mg Capsule 100 Mg PO BID Zofran (Ondansetron HCl) 4 Mg Tab 4 Mg PO Q6HR PRN Ventolin Hfa 18 GM Inh (Albuterol Sulfate) 90 Mcg/Act Aer 2 Puff INH Q4-6H PRN Macrobid (Nitrofurantoin Monohydrate Macrocrystals) 100 Mg Capsule 100 Mg PO BID 5 Days Reglan (Metoclopramide HCl) 10 Mg Tab 10 Mg PO QID PRN Levsin-SL (Hyoscyamine Sulfate) 0.125 Mg Subl 0.25 Mg SL Q6H Zofran Odt (Ondansetron Odt) 4 Mg Tab 4 Mg SL Q6HR PRN Proair Hfa 8.5 GM Inh (Albuterol Sulfate) 90 Mcg/Act Aer 1 Puff INH Q4H PRN 108 mcg/actuation Review of Systems Except as stated in HPI: all other systems reviewed are Neg Physical Exam Narrative GENERAL: Well-developed well-nourished, talking on the phone in no obvious distress. SKIN: Focused skin assessment warm/dry. HEAD: Atraumatic. Normocephalic. EYES: Pupils equal and round. No scleral icterus. No injection or drainage. ENT: No nasal bleeding or discharge. Mucous membranes pink and moist. NECK: Trachea midline. No JVD. CARDIOVASCULAR: Regular rate and rhythm. No murmur appreciated. RESPIRATORY: No accessory muscle use. Clear to auscultation. Breath sounds equal bilaterally. GASTROINTESTINAL: Abdomen soft, non-tender, nondistended. Hepatic and splenic margins not palpable. MUSCULOSKELETAL: No obvious deformities. No clubbing. No cyanosis. No edema. NEUROLOGICAL: Awake and alert. No obvious cranial nerve deficits. Motor grossly within normal limits. Normal speech. PSYCHIATRIC: Appropriate mood and affect; insight and judgment normal. Data Data Last Documented VS Vital Signs Date Time Temp Pulse Resp B/P (MAP) Pulse Ox O2 Delivery O2 Flow Rate FiO2 03/16/18 23:49 03/16/18 21:40 18 03/16/18 20:49 68 100 Room Air 03/16/18 18:27 98.5 Orders Orders Urinalysis - C+S If Indicated (03/16/18 20:49) Ed Urine Pregnancytest Poc (03/16/18 20:49) Complete Blood Count With Diff (03/16/18 21:11) Comprehensive Metabolic Panel (03/16/18 21:11) Lipase (03/16/18 21:11) Iv Access Insert/Monitor (03/16/18 21:11) Ecg Monitoring (03/16/18 21:11) Oximetry (03/16/18 21:11) Sodium Chlor 0.9% 1000 Ml Inj (Ns 1000 M (03/16/18 21:11) Sodium Chloride 0.9% Flush (Ns Flush) (03/16/18 21:15) Dicyclomine (Bentyl) (03/16/18 21:15) Metoclopramide Inj (Reglan Inj) (03/16/18 21:15) Cath For Specimen (03/16/18 22:14) Urine Culture (03/16/18 22:20) Ed Discharge Order (03/16/18 23:12) Labs Laboratory Tests Test 03/16/18 21:30 03/16/18 22:20 White Blood Count 5.5 TH/MM3 Red Blood Count 4.39 MIL/MM3 Hemoglobin 13.3 GM/DL Hematocrit 39.4 % Mean Corpuscular Volume 89.8 FL Mean Corpuscular Hemoglobin 30.4 PG Mean Corpuscular Hemoglobin Concent 33.8 % Red Cell Distribution Width 12.6 % Platelet Count 219 TH/MM3 Mean Platelet Volume 9.2 FL Neutrophils (%) (Auto) 49.2 % Lymphocytes (%) (Auto) 43.6 % Monocytes (%) (Auto) 5.7 % Eosinophils (%) (Auto) 0.9 % Basophils (%) (Auto) 0.6 % Neutrophils # (Auto) 2.7 TH/MM3 Lymphocytes # (Auto) 2.4 TH/MM3 Monocytes # (Auto) 0.3 TH/MM3 Eosinophils # (Auto) 0.1 TH/MM3 Basophils # (Auto) 0.0 TH/MM3 CBC Comment DIFF FINAL Differential Comment Blood Urea Nitrogen 13 MG/DL Creatinine 0.97 MG/DL Random Glucose 95 MG/DL Total Protein 7.4 GM/DL Albumin 3.7 GM/DL Calcium Level 8.3 MG/DL Alkaline Phosphatase 90 U/L Aspartate Amino Transf (AST/SGOT) 17 U/L Alanine Aminotransferase (ALT/SGPT) 15 U/L Total Bilirubin 0.2 MG/DL Sodium Level 138 MEQ/L Potassium Level 3.7 MEQ/L Chloride Level 104 MEQ/L Carbon Dioxide Level 24.5 MEQ/L Anion Gap 10 MEQ/L Estimat Glomerular Filtration Rate 77 ML/MIN Lipase 683 U/L Urine Color YELLOW Urine Turbidity HAZY Urine pH 7.0 Urine Specific [place] 1.025 Urine Protein TRACE mg/dL Urine Glucose (UA) NEG mg/dL Urine Ketones NEG mg/dL Urine Occult Blood SMALL Urine Nitrite POS Urine Bilirubin NEG Urine Urobilinogen LESS THAN 2.0 MG/DL Urine Leukocyte Esterase MOD Urine RBC 1 /hpf Urine WBC 24 /hpf Urine Squamous Epithelial Cells 2 /hpf Urine Bacteria MANY /hpf Urine Mucus FEW /lpf Microscopic Urinalysis Comment CULTURE INDICATED MDM Medical Decision Making Medical Screen Exam Complete: Yes Emergency Medical Condition: Yes Differential Diagnosis Gastritis, gastroneuritis, dehydration, cyclic vomiting syndrome, colitis, pancreatitis, Narrative Course Patient room to the emergency department, her abdomen is benign, she appears well, she does have a mild elevation of lipase to 600, she is feeling much better after medications and would like to be discharged home, we discussed that she is already sans gallbladder and Miller appendix, discussed the results with her which represents a mild pancreatitis, she also smells of marijuana we discussed that she needs to cut back the amount of marijuana that she is using is that she may have a cyclical vomiting syndrome. She does have a property underwriter recommended follow-up. Discussed returning to ed criteria, your bland diet symptomatic management home Diagnosis Primary Impression: Pancreatitis Additional Impression: Marijuana abuse Med/Other Pt SpecificInfo: Prescription(s) given Scripts Nitrofurantoin Monohydrate Macrocrystals (Macrobid) 100 Mg Capsule 100 MG PO BID for Infection, #7 CAP 0 Refills Prov: Mo Holguin MD 03/16/18 Ondansetron (Zofran) 4 Mg Tab 4 MG PO Q6HR Y for NAUSEA OR VOMITING, #20 TAB 0 Refills Prov: Mo Holguin MD 03/16/18 Disposition: 01 DISCHARGE HOME Condition: Stable Mo Holguin MD March 16, 2018 21:14
[2018-03-16] MEDS ORDERED: SODIUM CHLORIDE 0.9% FLUSH 10 ML FLUSH IV FLUSH PRN (21:15)
[2018-03-16] MEDS ORDERED: DICYCLOMINE HCL 10 MG CAP PO ONE (21:15)
[2018-03-16] MEDS ORDERED: METOCLOPRAMIDE HCL 10 MG/2 ML VIAL IV PUSH ONE (21:15)
[2018-03-16 21:40] VITALS: RESP 18
[2018-03-16 21:50] LABS: AUTOMATED NEUTROPHIL # 2.7 TH/MM3 (1.8-7.7); BASOPHIL % 0.6 % (0.0-2.0); EOSINOPHIL # 0.1 TH/MM3 (0-0.4); EOSINOPHIL % 0.9 % (0.0-4.0); HEMATOCRIT 39.4 % (35.0-46.0); HEMOGLOBIN 13.3 GM/DL (11.6-15.3); LYMPH % 43.6 % (9.0-44.0); LYMPHOCYTE # 2.4 TH/MM3 (1.0-4.8); MEAN CELL VOLUME 89.8 FL (80.0-100.0); MEAN CORPUSCULAR HEMOGLOBIN 30.4 PG (27.0-34.0); MEAN CORPUSCULAR HGB CONC 33.8 % (32.0-36.0); MEAN PLATELET VOLUME 9.2 FL (7.0-11.0); MONO % 5.7 % (0.0-8.0); MONOCYTE # 0.3 TH/MM3 (0-0.9); NEUT % 49.2 % (16.0-70.0); PLATELET COUNT 219 TH/MM3 (150-450); RED BLOOD COUNT 4.39 MIL/MM3 (4.00-5.30); RED CELL DISTRIBUTION WIDTH 12.6 % (11.6-17.2); WHITE BLOOD COUNT 5.5 TH/MM3 (4.0-11.0)
[2018-03-16 22:09] LABS: ALBUMIN 3.7 GM/DL (3.4-5.0); AST (GOT) 17 U/L (15-37); BICARBONATE 24.5 MEQ/L (21.0-32.0); BLOOD UREA NITROGEN 13 MG/DL (7-18); CALCIUM 8.3 MG/DL (8.5-10.1); CHLORIDE 104 MEQ/L (98-107); CREATININE 0.97 MG/DL (0.50-1.00); GLOMERULAR FILTRATION RATE 77 ML/MIN (>89); GLUCOSE,RANDOM 95 MG/DL (74-106); SODIUM (NA) 138 MEQ/L (136-145)
[2018-03-16 22:12] LABS: ALKALINE PHOSPHATASE 90 U/L (45-117); ALT (GPT) 15 U/L (10-53); TOTAL BILIRUBIN ADULT 0.2 MG/DL (0.2-1.0); TOTAL PROTEIN 7.4 GM/DL (6.4-8.2)
[2018-03-16 22:36] LABS: BACTERIA, URINE MANY /hpf; BILIRUBIN, URINE NEG (NEG); BLOOD, URINE SMALL (NEG); GLUCOSE,URINE NEG (NEG); KETONE, URINE NEG (NEG); MUCUS URINE FEW /lpf (OCC); NITRITE,URINE POS (NEG); SQUAMOUS EPITHELIAL CELL URINE 2 /hpf (0-5); URINE COLOR YELLOW (YELLW/STRAW); URINE LEUKOCYTE ESTERASE MOD (NEG)
[2018-03-16] MEDS ORDERED: ZOFR4TAB PO (23:10)
[2018-03-16] MEDS ORDERED: MACR100C2 PO (23:12)
== END 2018-03-16 23:50 | disposition home or self-care (01) ==
LOC: NEPC 18:17
DX: K85.90 Acute pancreatitis without necrosis or infection, unspecified (principal); B96.20 Unspecified Escherichia coli [E. coli] as the cause of diseases classified elsewhere; F12.10 Cannabis abuse, uncomplicated; K59.00 Constipation, unspecified; J45.909 Unspecified asthma, uncomplicated; Z86.73 Personal history of transient ischemic attack (TIA), and cerebral infarction without residual deficits; Z87.442 Personal history of urinary calculi; Z88.0 Allergy status to penicillin; Z88.8 Allergy status to other drugs, medicaments and biological substances; Z79.899 Other long term (current) drug therapy
CPT/HCPCS: 80053; 81001; 83690; 84703; 85025; 87077; 87086; 87186; 96374; 99284; J2765; J7030

== ENCOUNTER 2018-03-27 01:15 | Emergency (ER) | END 2018-03-27 06:09 | disposition home or self-care (01) | DX: N30.00 Acute cystitis without hematuria (principal); F12.90 Cannabis use, unspecified, uncomplicated | CPT/HCPCS: 80053; 81001; 83690; 85025; 87077; 87086; 87186; 96361; 96365; 96375; 99284; J1885; J1956; J7030 ==

== ENCOUNTER 2018-04-21 22:53 | Emergency (ER) | payer OTHER ==
[~2018-04-21] VITALS: Ht 149.9 cm; Wt 58.5 kg
[~2018-04-21 22:53] MED LIST changes: +DIFL150T PO; +LEVA750T9 PO; -MACR100C2 PO; +PHEN0.4T PO; -REGL10TA5 PO
[2018-04-21 22:59] VITALS: BP 110/50; PULSE 74; RESP 18; TEMP 97.5; O2SAT 100
[2018-04-21] MEDS ORDERED: SODIUM CHLORID 0.9% 500 ML INJ 500 ML IV ONE (23:15)
[2018-04-21] MEDS ORDERED: METOCLOPRAMIDE HCL 10 MG/2 ML VIAL IV PUSH ONE (23:15)
--- NOTE | 2018-04-21 23:34 | RADRPT ---
EXAM DATE: 04/21/2018 11:19 PM EDT AGE/SEX: 37 years / Female INDICATIONS: Chest and upper abdominal pain. CLINICAL DATA: This is the patient's initial encounter. Patient reports that signs and symptoms have been present for 2 days and indicates a pain score of 9/10. MEDICAL/SURGICAL HISTORY: . Cerebrovascular disease. Renal calculi. Asthma, substance abuse . Appendectomy. Cholecystectomy.Tubal ligation COMPARISON: [facility] [place], CHEST SINGLE AP, 11/03/2017. . FINDINGS: Single AP view of the chest. The lungs are clear. Cardiomediastinal silhouette within nor mal limits. No evidence of pleural effusion or pneumothorax. Surgical clips in the right upper quadr ant of the abdomen. No evidence of free air in the abdomen. CONCLUSION: No acute cardiopulmonary disease identified. Electronically signed by: Rod Nicole MD 04/21/2018 11:32 PM EDT
[2018-04-22 00:02] LABS: AUTOMATED NEUTROPHIL # 3.9 TH/MM3 (1.8-7.7); BASOPHIL % 0.4 % (0.0-2.0); EOSINOPHIL # 0.1 TH/MM3 (0-0.4); EOSINOPHIL % 1.3 % (0.0-4.0); HEMATOCRIT 36.4 % (35.0-46.0); LYMPH % 33.9 % (9.0-44.0); LYMPHOCYTE # 2.2 TH/MM3 (1.0-4.8); MEAN CELL VOLUME 91.3 FL (80.0-100.0); MEAN CORPUSCULAR HEMOGLOBIN 30.2 PG (27.0-34.0); MEAN PLATELET VOLUME 8.7 FL (7.0-11.0); MONO % 4.4 % (0.0-8.0); MONOCYTE # 0.3 TH/MM3 (0-0.9); PLATELET COUNT 194 TH/MM3 (150-450); RED BLOOD COUNT 3.98 MIL/MM3 (4.00-5.30); RED CELL DISTRIBUTION WIDTH 13.1 % (11.6-17.2); WHITE BLOOD COUNT 6.5 TH/MM3 (4.0-11.0)
[2018-04-22 00:22] LABS: PROTHROMBIN TIME - PATIENT 10.3 SEC (9.8-11.6)
--- NOTE | 2018-04-22 00:23 | PD ---
HPI Chief Complaint: GI Complaint Time Seen by Provider: 23:04 Travel History International Travel<30 days: No Contact w/Intl Traveler<30days: No Traveled to known affect area: No History of Present Illness HPI The patient is a 37 year old female who presents to the [facility] emergency department with a history of abdominal pain and back pain on the left flank that she reports began 3 days ago. She reports that on the onset of symptoms she had diarrhea 1 that was a watery stool. She reports that she took Imodium and has not had a bowel movement since then. Today she began to have abdominal distention. She reports having generalized pain in her abdomen that is like labor pains. She reports having nausea and vomiting 5 today. The patient does have a history of chronic nausea vomiting. She reports that her usual medications have not been helping. She reports that she took a hydrocodone without relief as well as a Tylenol without relief. She reports having dysuria with urinary frequency and urgency. She reports that she has had decreased urine output throughout the day today. She reports having a remote history of kidney stone. Her last menstrual cycle was 2 weeks ago. She denies any possibility of being . She denies having any vaginal discharge or vaginal bleeding that has been unusual. Otherwise on review of systems, she denies having any known recent fevers, cough, congestion, neck pain , chest pain, shortness of breath, or neurologic symptoms. [facility] Past Medical History Narrative Medical The patient's past medical history is significant for chronic epigastric pain according to the electronic medical record, chronic marijuana use, chronic nausea vomiting, acid reflux, remote history of kidney stone. Hx Anticoagulant Therapy: Yes Asthma: Yes Blood Disorders: No Anxiety: No Depression: No Heart Rhythm Problems: No Cancer: No Cardiovascular Problems: No High Cholesterol: No Chemotherapy: No Chest Pain: No Congestive Heart Failure: No COPD: No Cerebrovascular Accident: Yes (2013) Diabetes: No Diminished Hearing: No Endocrine: No Gastrointestinal Disorders: Yes GERD: Yes Genitourinary: Yes Headaches: Yes Hypertension: No Immune Disorder: No Implanted Vascular Access Dvce: No Kidney Stones: Yes Musculoskeletal: No Neurologic: Yes Psychiatric: No Reproductive: No Respiratory: Yes Immunizations Current: Yes Migraines: Yes Myocardial Infarction: No Radiation Therapy: No Seizures: Yes (09/2017) Sleep Apnea: No Thyroid Disease: Yes Tetanus Vaccination: < 5 Years Influenza Vaccination: Yes ?: Not LMP: 2 WEEKS AGO : 3 Para: 3 Miscarriage: 0 : 0 Ovarian Cysts: Yes Tubal Ligation: Yes Past Surgical History Narrative Surgical The patient's past surgical history is significant for an appendectomy, cholecystectomy, right hand surgery Abdominal Surgery: Yes (GALLBLADDER, APPENDIX) AICD: No Appendectomy: Yes Cholecystectomy: Yes Hysterectomy: No Joint Replacement: No Pacemaker: No Other Surgery: No Social History Alcohol Use: No Tobacco Use: No [facility]: [facility] Allergies-Medications (Allergen,Severity, Reaction): Coded Allergies: butorphanol (Unverified Allergy, Severe, jitters, 04/21/18) cephalexin (Unverified Allergy, Severe, DOESN'T REMEMBER, 04/21/18) diatrizoate meglumine (Unverified Allergy, Severe, ITCHING ALL OVER BODY, 04/21/18) droperidol (Unverified Allergy, Severe, JITTERY, 04/21/18) gadobenic acid (Unverified Allergy, Severe, ITCHING ALL OVER BODY, 04/21/18 ) gadodiamide (Unverified Allergy, Severe, ITCHING ALL OVER BODY, 04/21/18) gadoteridol (Unverified Allergy, Severe, ITCHING ALL OVER BODY, 04/21/18) iodixanol (Unverified Allergy, Severe, ITCHING ALL OVER BODY, 04/21/18) iohexol (Unverified Allergy, Severe, ITCHING ALL OVER BODY, 04/21/18) ketorolac (Unverified Allergy, Severe, JUMPY, 04/21/18) prochlorperazine (Unverified Allergy, Severe, LEGS SHAKE, 04/21/18) JITTERY LEGS promethazine (Unverified Allergy, Severe, JITTERY, 04/21/18) penicillin G (Unverified Allergy, Mild, nausea, 04/21/18) alginic acid (Unverified Adverse Reaction, Severe, N&V, 04/21/18) aluminum hydroxide (Unverified Adverse Reaction, Severe, N&V, 04/21/18) calcium carbonate (Unverified Adverse Reaction, Severe, N&V, 04/21/18) magnesium (Unverified Adverse Reaction, Severe, N&V, 04/21/18) sodium bicarbonate (Unverified Adverse Reaction, Severe, N&V, 04/21/18) sulfisoxazole (Unverified Adverse Reaction, Severe, N&V, 04/21/18) Reported Meds & Prescriptions Reported Meds & Active Scripts Active Macrobid (Nitrofurantoin Monoh/Nitrofur Macro) 100 Mg Cap 100 Mg PO BID 7 Days Reglan (Metoclopramide HCl) 5 Mg Tab 5 Mg PO TIDAC Pyridium (Phenazopyridine HCl) 100 Mg Tab 100 Mg PO Q8H PRN Diflucan (Fluconazole) 150 Mg Tab 150 Mg PO ONCE Levaquin (Levofloxacin) 750 Mg Tablet 750 Mg PO DAILY Ventolin Hfa 18 GM Inh (Albuterol Sulfate) 90 Mcg/Act Aer 2 Puff INH Q4-6H PRN Levsin-SL (Hyoscyamine Sulfate) 0.125 Mg Subl 0.25 Mg SL Q6H Zofran Odt (Ondansetron Odt) 4 Mg Tab 4 Mg SL Q6HR PRN Proair Hfa 8.5 GM Inh (Albuterol Sulfate) 90 Mcg/Act Aer 1 Puff INH Q4H PRN 108 mcg/actuation Review of Systems Except as stated in HPI: all other systems reviewed are Neg General / Constitutional: No: Fever Eyes: No: Visual changes HENT: No: Headaches Cardiovascular: No: Chest Pain or Discomfort Respiratory: No: Shortness of Breath Gastrointestinal: Positive: Nausea, Vomiting, Diarrhea, Abdominal Pain, Constipation, Changes in Bowel Habits, Indigestion, No: Hematemesis, Hematochezia, Loss of Appetite Genitourinary: No: Dysuria Musculoskeletal: No: Pain Skin: No Rash Neurologic: No: Weakness, Focal Abnormalities, Change in Mentation, Slurred Speech, Sensory Disturbance Psychiatric: No: Depression Endocrine: No: Polydipsia Hematologic/Lymphatic: No: Easy Bruising Physical Exam Narrative General: The patient is a well-developed well-nourished female, uncomfortable appearing on examination, holding her left flank. Head and Neck exam: Head is normocephalic atraumatic. Eyes: EOMI, pupils are equal round and reactive to light. Nose: Midline septum with pink mucous membranes Mouth: Dentition unremarkable. Moist mucus membranes. Posterior oropharynx is not erythematous. No tonsillar hypertrophy. Uvula midline. Airway patent. Neck: No palpable lymphadenopathy. No nuchal rigidity. No thyromegaly. Cardiovascular: Regular rate and rhythm without murmurs, gallops, or rubs. No pulse deficit to the extremities on simultaneous auscultation and palpation of her radial artery. Lungs: Clear to auscultation bilaterally. No wheezes, rhonchi, or rales. Abdomen: Soft, with generalized distention noted, tenderness on palpation reported in the left lower quadrant of the abdomen, no other tenderness on palpation of the other quadrants, decreased bowel sounds are noted. No guarding, rebound, or rigidity. Negative Snell sign. Extremities: No clubbing, cyanosis, or edema. 2+ pulses in all 4 extremities. No calf tenderness on palpation. Back: No spinous process tenderness to palpation. Left-sided CVA tenderness on palpation. Neurologic Exam: Grossly nonfocal. Skin Exam: No rash noted. Intact skin that is warm and dry. Data Data Last Documented VS Vital Signs Date Time Temp Pulse Resp B/P (MAP) Pulse Ox O2 Delivery O2 Flow Rate FiO2 04/21/18 22:59 97.5 74 18 110/50 (70) 100 Orders Orders Complete Blood Count With Diff (04/21/18 23:06) Comprehensive Metabolic Panel (04/21/18 23:06) Prothrombin Time / Inr (Pt) (04/21/18 23:06) Act Partial Throm Time (Ptt) (04/21/18 23:06) C-Reactive Protein (Crp) (04/21/18 23:06) Lipase (04/21/18 23:06) Urinalysis - C+S If Indicated (04/21/18 23:) Chest, Single Ap (04/21/18 23:06) Iv Access Insert/Monitor (04/21/18 23:06) Ecg Monitoring (04/21/18 23:06) Oximetry (04/21/18 23:06) Ed Urine Pregnancytest Poc (04/21/18 23:06) Drug Screen, Random Urine (04/21/18 23:06) Alcohol (Ethanol) (04/21/18 23:06) Sodium Chlorid 0.9% 500 Ml Inj (Ns 500 M (04/21/18 23:15) Metoclopramide Inj (Reglan Inj) (04/21/18 23:15) Morphine Inj (Morphine Inj) (04/22/18 00:30) Ct Abd/Pel W/O Iv Contrast (04/22/18 00:32) Cath For Specimen (04/22/18 01:57) Ed Discharge Order (04/22/18 02:57) Labs Laboratory Tests Test 04/21/18 23:41 04/22/18 00:54 04/22/18 02:33 White Blood Count 6.5 TH/MM3 Red Blood Count 3.98 MIL/MM3 Hemoglobin 12.0 GM/DL Hematocrit 36.4 % Mean Corpuscular Volume 91.3 FL Mean Corpuscular Hemoglobin 30.2 PG Mean Corpuscular Hemoglobin Concent 33.0 % Red Cell Distribution Width 13.1 % Platelet Count 194 TH/MM3 Mean Platelet Volume 8.7 FL Neutrophils (%) (Auto) 60.0 % Lymphocytes (%) (Auto) 33.9 % Monocytes (%) (Auto) 4.4 % Eosinophils (%) (Auto) 1.3 % Basophils (%) (Auto) 0.4 % Neutrophils # (Auto) 3.9 TH/MM3 Lymphocytes # (Auto) 2.2 TH/MM3 Monocytes # (Auto) 0.3 TH/MM3 Eosinophils # (Auto) 0.1 TH/MM3 Basophils # (Auto) 0.0 TH/MM3 CBC Comment DIFF FINAL Differential Comment Prothrombin Time 10.3 SEC Prothromb Time International Ratio 1.0 RATIO Activated Partial Thromboplast Time 22.8 SEC Blood Urea Nitrogen 13 MG/DL Creatinine 0.67 MG/DL Random Glucose 86 MG/DL Total Protein 6.6 GM/DL Albumin 3.3 GM/DL Calcium Level 7.9 MG/DL Alkaline Phosphatase 94 U/L Aspartate Amino Transf (AST/SGOT) 27 U/L Alanine Aminotransferase (ALT/SGPT) 23 U/L Total Bilirubin 0.3 MG/DL Sodium Level 139 MEQ/L Potassium Level 4.2 MEQ/L Chloride Level 107 MEQ/L Carbon Dioxide Level 25.2 MEQ/L Anion Gap 7 MEQ/L Estimat Glomerular Filtration Rate 119 ML/MIN C-Reactive Protein 0.36 MG/DL Lipase 132 U/L Ethyl Alcohol Level LESS THAN 3 MG/DL Urine Color YELLOW Urine Turbidity HAZY Urine pH 7.0 Urine Specific [place] 1.023 Urine Protein TRACE mg/dL Urine Glucose (UA) NEG mg/dL Urine Ketones NEG mg/dL Urine Occult Blood NEG Urine Nitrite NEG Urine Bilirubin NEG Urine Urobilinogen LESS THAN 2.0 MG/DL Urine Leukocyte Esterase MOD Urine RBC 1 /hpf Urine WBC 2 /hpf Urine Squamous Epithelial Cells 10 /hpf Urine Bacteria RARE /hpf Urine Hyaline Casts 2 /lpf Urine Mucus FEW /lpf Microscopic Urinalysis Comment CULT NOT INDICATED Urine Opiates Screen POS Urine Barbiturates Screen NEG Urine Amphetamines Screen NEG Urine Benzodiazepines Screen POS Urine Cocaine Screen NEG Urine Cannabinoids Screen POS MDM Medical Decision Making Medical Screen Exam Complete: Yes Emergency Medical Condition: Yes Medical Record Reviewed: Yes Differential Diagnosis Diverticulitis, versus constipation, versus exacerbation of chronic abdominal pain, versus colitis, versus kidney stone, versus pyelonephritis Narrative Course During the course of the patient's emergency department visit, the patient's history, examination, and differential diagnosis were reviewed with the patient. The patient was placed on a bus monitor with oximetry and frequent blood pressure monitoring. The patient had IV access obtained and blood work sent for analysis. The patient was initially provided normal saline at 500 mL bolus 1, Reglan 5 mg IV, morphine 4 mg IV. The patient's laboratory studies were reviewed and remarkable for a white count of 6.5, hemoglobin 12, platelets 194 with a normal differential, CMP is remarkable for calcium 7.9, C-reactive protein is 0.36, lipase 132, PT 10.3, PTT 22.8, urine drug screen is positive for opiates, benzodiazepines, cannabinoids. Urinalysis shows moderate leukocyte esterase, 1 RBC, 2 WBCs, rare bacteria, culture not indicated. Radiology studies were reviewed and remarkable for Last Impressions Abdomen/Pelvis CT 04/22/18 0032 Signed Impressions: CONCLUSION: 1. Distended debris-filled stomach. No evidence of bowel dilatation. 2. No other acute findings identified in the abdomen and pelvis. Chest X-Ray 04/21/18 2306 Signed Impressions: CONCLUSION: No acute cardiopulmonary disease identified. The patient reports a long-standing history of intermittent nausea vomiting. The patient could have a component of gastroparesis. The patient will be discharged home with a prescription for Reglan. The patient is encouraged to follow-up with her primary care physician and ortho rn in the next 2- 3 days. The patient reports a history recently of dysuria with urinary frequency and urgency, abnormal urinalysis that was a catheterized urine, therefore the patient will be discharged home on antibiotic. The patient was given a prescription for Macrobid. The patient is resting comfortably and feels better, is alert and in no distress. The patient's results and examination findings were discussed with the patient. The repeat examination is unremarkable and benign. The history, exam, diagnostic testing, and current condition do not suggest any significant pathology to warrant further testing, continued ED treatment, admission, or surgical evaluation at this point. The vital signs have been stable. The patient does not have uncontrollable pain, intractable vomiting, or other significant symptoms. The patient's condition is stable and appropriate for discharge. The patient will pursue further outpatient evaluation with a primary care physician or other designated or consulting physician as indicated in the discharge instructions. The patient is instructed to report back to the emergency department immediately for reexamination in the mean time if she develops any new or worsening signs or symptoms. The patient expressed understanding and was agreeable with this plan. Diagnosis Primary Impression: Abdominal pain Qualified Codes: R10.84 - Generalized abdominal pain Additional Impressions: Vomiting Qualified Codes: R11.2 - Nausea with vomiting, unspecified UTI (urinary tract infection) Qualified Codes: N30.00 - Acute cystitis without hematuria Referrals: Primary Care Physician 3 days Patient Instructions: Abdominal Pain (ED), Acute Nausea and Vomiting (ED), General Instructions, Urinary Tract Infection in Women (ED) Departure Forms: Tests/Procedures Med/Other Pt SpecificInfo: Prescription(s) given Scripts Nitrofurantoin Monohydrate Macrocrystals (Macrobid) 100 Mg Cap 100 MG PO BID for Infection for 7 Days, #14 CAP 0 Refills Prov: Nadya Viera MD 04/22/18 Metoclopramide (Reglan) 5 Mg Tab 5 MG PO TIDAC, #12 TAB 0 Refills Prov: Nadya Viera MD 04/22/18 Disposition: 01 DISCHARGE HOME Condition: Stable Nadya Viera MD Apr 22, 2018 00:22
[2018-04-22] MEDS ORDERED: MORPHINE SULFATE 4 MG/ML INJ IV PUSH ONE (00:30)
--- NOTE | 2018-04-22 01:19 | RADRPT ---
EXAM DATE: 04/22/2018 1:12 AM EDT AGE/SEX: 37 years / Female INDICATIONS: Abdominal pain and distention. CLINICAL DATA: This is the patient's initial encounter. Patient reports that signs and symptoms have been present for 2 days and indicates a pain score of 6/10. MEDICAL/SURGICAL HISTORY: Gastroesophageal reflux disease. Renal calculi. Cerebrovascular dis ease. Ovarian cysts. Appendectomy. Cholecystectomy. Tubal ligation. RADIATION DOSE: 6.64 CTDI (mGy) COMPARISON: [facility] [place]EL[place]/O CONTRAST, 11/18/2017. . TECHNIQUE: Multiple contiguous axial images were obtained through the abdomen. Images were obtained using multiple row detector helical technique. Using dose reduction techniques, radiation dose was ke pt as low as reasonably achievable to obtain optimal diagnostic quality images. FINDINGS: Lower Lungs: Mild atelectasis at the dependent lower lobes. Liver: The liver has a homogeneous density without space-occupying lesion. There is no dilation of th e biliary tree. Cholecystectomy clips in the gallbladder fossa. Spleen: Homogeneous density without enlargement. Pancreas: Unremarkable without mass or calcification. Kidneys: Normal in size and shape. No evidence of mass or hydronephrosis. Adrenal Glands: Unremarkable. Aorta: The aorta and proximal iliac vessels are grossly unremarkable without aneurysmal dilation. Bowel/Mesentery: Distended debris-filled stomach. No evidence of bowel dilatation. Appendix not iden tified. No free air or free fluid. Abdominal Wall: Intact. Retroperitoneum: No evidence of adenopathy in the retrocrural, para-aortic, or deep pelvic regions. Bladder: Contours are smooth. Reproductive Organs: No abnormal masses or calcifications seen. Inguinal: The inguinal region is unremarkable without evidence of adenopathy. Bony Structures: Unremarkable. CONCLUSION: 1. Distended debris-filled stomach. No evidence of bowel dilatation. 2. No other acute findings identified in the abdomen and pelvis. Electronically signed by: Rod Nicole MD 04/22/2018 1:18 AM EDT
[2018-04-22 01:29] LABS: ALKALINE PHOSPHATASE 94 U/L (45-117); ALT (GPT) 23 U/L (10-53); C-REACTIVE PROTEIN 0.36 MG/DL (0.00-0.30); TOTAL BILIRUBIN ADULT 0.3 MG/DL (0.2-1.0); TOTAL PROTEIN 6.6 GM/DL (6.4-8.2)
[2018-04-22 01:36] LABS: ALBUMIN 3.3 GM/DL (3.4-5.0); AST (GOT) 27 U/L (15-37); BICARBONATE 25.2 MEQ/L (21.0-32.0); BLOOD UREA NITROGEN 13 MG/DL (7-18); CALCIUM 7.9 MG/DL (8.5-10.1); CHLORIDE 107 MEQ/L (98-107); CREATININE 0.67 MG/DL (0.50-1.00); GLOMERULAR FILTRATION RATE 119 ML/MIN (>89); GLUCOSE,RANDOM 86 MG/DL (74-106); SODIUM (NA) 139 MEQ/L (136-145)
[2018-04-22 02:45] LABS: BACTERIA, URINE RARE /hpf; BILIRUBIN, URINE NEG (NEG); BLOOD, URINE NEG (NEG); GLUCOSE,URINE NEG (NEG); HYALINE CAST, URINE 2 /lpf (RARE); KETONE, URINE NEG (NEG); MUCUS URINE FEW /lpf (OCC); NITRITE,URINE NEG (NEG); SQUAMOUS EPITHELIAL CELL URINE 10 /hpf (0-5); URINE COLOR YELLOW (YELLW/STRAW); URINE LEUKOCYTE ESTERASE MOD (NEG)
[2018-04-22] MEDS ORDERED: MACR100C2 PO (02:51)
[2018-04-22] MEDS ORDERED: REGL5TAB PO (02:51)
== END 2018-04-22 03:52 | disposition home or self-care (01) ==
LOC: NEPE 22:53
DX: R10.84 Generalized abdominal pain (principal); R11.2 Nausea with vomiting, unspecified; R19.7 Diarrhea, unspecified; N30.00 Acute cystitis without hematuria; F12.90 Cannabis use, unspecified, uncomplicated; J45.909 Unspecified asthma, uncomplicated; Z79.899 Other long term (current) drug therapy; Z87.442 Personal history of urinary calculi; Z90.49 Acquired absence of other specified parts of digestive tract
CPT/HCPCS: 71045; 74176; 80053; 80307; 81001; 83690; 84703; 85025; 85610; 85730; 86140; 96361; 96374; 96375; 99284; J2270; J2765; J7040; P9612

== ENCOUNTER 2018-04-29 23:37 | Emergency (ER) | payer OTHER ==
[~2018-04-29] VITALS: Ht 149.9 cm; Wt 58.5 kg
[~2018-04-29 23:37] MED LIST changes: +MACR100C2 PO; +REGL5TAB PO
[2018-04-29 23:38] VITALS: BP 114/73; PULSE 69; RESP 16; TEMP 97.6; O2SAT 100
[2018-04-30] MEDS ORDERED: SODIUM CHLOR 0.9% 1000 ML INJ 1,000 ML IV ONE ×2 (01:45)
[2018-04-30 01:50] LABS: AUTOMATED NEUTROPHIL # 2.6 TH/MM3 (1.8-7.7); BASOPHIL % 0.7 % (0.0-2.0); EOSINOPHIL # 0.1 TH/MM3 (0-0.4); EOSINOPHIL % 1.3 % (0.0-4.0); HEMATOCRIT 38.6 % (35.0-46.0); HEMOGLOBIN 12.9 GM/DL (11.6-15.3); LYMPH % 32.2 % (9.0-44.0); LYMPHOCYTE # 1.5 TH/MM3 (1.0-4.8); MEAN CELL VOLUME 90.9 FL (80.0-100.0); MEAN CORPUSCULAR HEMOGLOBIN 30.4 PG (27.0-34.0); MEAN CORPUSCULAR HGB CONC 33.4 % (32.0-36.0); MEAN PLATELET VOLUME 8.3 FL (7.0-11.0); MONO % 9.8 % (0.0-8.0); MONOCYTE # 0.5 TH/MM3 (0-0.9); PLATELET COUNT 189 TH/MM3 (150-450); RED BLOOD COUNT 4.24 MIL/MM3 (4.00-5.30); RED CELL DISTRIBUTION WIDTH 12.7 % (11.6-17.2); WHITE BLOOD COUNT 4.6 TH/MM3 (4.0-11.0)
[2018-04-30] MEDS ORDERED: FAMOTIDINE 20 MG/2 ML VIAL IV PUSH SCH (02:00)
[2018-04-30] MEDS ORDERED: METOCLOPRAMIDE INJ 10 MG in SODIUM CHLORIDE 0.9% INJ 50 ML IV ONE (02:00)
[2018-04-30] MEDS ORDERED: KETOROLAC TROMETHAMINE 30 MG/ML (IVP) VIAL IV PUSH ONE (02:30)
[2018-04-30 02:42] LABS: ALBUMIN 3.8 GM/DL (3.4-5.0); ALT (GPT) 25 U/L (10-53); AST (GOT) 23 U/L (15-37); BICARBONATE 26.8 MEQ/L (21.0-32.0); BLOOD UREA NITROGEN 11 MG/DL (7-18); CALCIUM 8.7 MG/DL (8.5-10.1); CHLORIDE 102 MEQ/L (98-107); CREATININE 0.79 MG/DL (0.50-1.00); GLOMERULAR FILTRATION RATE 98 ML/MIN (>89); GLUCOSE,RANDOM 69 MG/DL (74-106); SODIUM (NA) 138 MEQ/L (136-145)
[2018-04-30 02:43] LABS: ALKALINE PHOSPHATASE 110 U/L (45-117); TOTAL BILIRUBIN ADULT 0.3 MG/DL (0.2-1.0); TOTAL PROTEIN 7.8 GM/DL (6.4-8.2)
--- NOTE | 2018-04-30 02:54 | PD ---
HPI . vomit flank pain bilateral Chief Complaint: Abdominal Pain Time Seen by Provider: 00:37 Travel History International Travel<30 days: No Contact w/Intl Traveler<30days: No Traveled to known affect area: No History of Present Illness HPI pt reports she was in our ER 1 week ago with UTI diagnosis and started on Bcatrim and now after finishing the antibiotics she is having N/V and flank pain bilateral and epiastric pain as well , take zoferan PO at home without relief of this vomiting episdes dull ache in her back bilateral and feels similiar to when she ahd renal stone and " kidney infection 10 years ago " PFSH Past Medical History Hx Anticoagulant Therapy: Yes Asthma: Yes Blood Disorders: No Anxiety: No Depression: No Heart Rhythm Problems: No Cancer: No Cardiovascular Problems: No High Cholesterol: No Chemotherapy: No Chest Pain: No Congestive Heart Failure: No COPD: No Cerebrovascular Accident: Yes (2013) Diabetes: No Diminished Hearing: No Endocrine: No Gastrointestinal Disorders: Yes GERD: Yes Genitourinary: Yes Headaches: Yes Hypertension: No Immune Disorder: No Implanted Vascular Access Dvce: No Kidney Stones: Yes Musculoskeletal: No Neurologic: Yes Psychiatric: No Reproductive: No Respiratory: Yes (asthma) Immunizations Current: Yes Migraines: Yes Myocardial Infarction: No Radiation Therapy: No Seizures: Yes (09/2017) Sleep Apnea: No Thyroid Disease: Yes Tetanus Vaccination: < 5 Years ?: Not LMP: 04/15/18 : 3 Para: 3 Miscarriage: 0 : 0 Ovarian Cysts: Yes Tubal Ligation: Yes Past Surgical History Abdominal Surgery: Yes (GALLBLADDER, APPENDIX) AICD: No Appendectomy: Yes Cholecystectomy: Yes Hysterectomy: No Joint Replacement: No Pacemaker: No Other Surgery: No Social History Alcohol Use: No Tobacco Use: No Substance Use: Yes ([facility]) Allergies-Medications (Allergen,Severity, Reaction): Coded Allergies: butorphanol (Unverified Allergy, Severe, jitters, 04/21/18) cephalexin (Unverified Allergy, Severe, DOESN'T REMEMBER, 04/21/18) diatrizoate meglumine (Unverified Allergy, Severe, ITCHING ALL OVER BODY, 04/21/18) droperidol (Unverified Allergy, Severe, JITTERY, 04/21/18) gadobenic acid (Unverified Allergy, Severe, ITCHING ALL OVER BODY, 04/21/18 ) gadodiamide (Unverified Allergy, Severe, ITCHING ALL OVER BODY, 04/21/18) gadoteridol (Unverified Allergy, Severe, ITCHING ALL OVER BODY, 04/21/18) iodixanol (Unverified Allergy, Severe, ITCHING ALL OVER BODY, 04/21/18) iohexol (Unverified Allergy, Severe, ITCHING ALL OVER BODY, 04/21/18) ketorolac (Unverified Allergy, Severe, JUMPY, 04/21/18) prochlorperazine (Unverified Allergy, Severe, LEGS SHAKE, 04/21/18) JITTERY LEGS promethazine (Unverified Allergy, Severe, JITTERY, 04/21/18) penicillin G (Unverified Allergy, Mild, nausea, 04/21/18) alginic acid (Unverified Adverse Reaction, Severe, N&V, 04/21/18) aluminum hydroxide (Unverified Adverse Reaction, Severe, N&V, 04/21/18) calcium carbonate (Unverified Adverse Reaction, Severe, N&V, 04/21/18) magnesium (Unverified Adverse Reaction, Severe, N&V, 04/21/18) sodium bicarbonate (Unverified Adverse Reaction, Severe, N&V, 04/21/18) sulfisoxazole (Unverified Adverse Reaction, Severe, N&V, 04/21/18) Reported Meds & Prescriptions Reported Meds & Active Scripts Active Ventolin Hfa 18 GM Inh (Albuterol Sulfate) 90 Mcg/Act Aer 2 Puff INH Q4-6H PRN Levsin-SL (Hyoscyamine Sulfate) 0.125 Mg Subl 0.25 Mg SL Q6H Zofran Odt (Ondansetron Odt) 4 Mg Tab 4 Mg SL Q6HR PRN Proair Hfa 8.5 GM Inh (Albuterol Sulfate) 90 Mcg/Act Aer 1 Puff INH Q4H PRN 108 mcg/actuation Physical Exam Narrative GENERAL: non toxic appearing SKIN: Warm and dry. HEAD: Atraumatic. Normocephalic. EYES: Pupils equal and round. No scleral icterus. No injection or drainage. ENT: No nasal bleeding or discharge. Mucous membranes pink and moist. NECK: Trachea midline. No JVD. CARDIOVASCULAR: Regular rate and rhythm. RESPIRATORY: No accessory muscle use. Clear to auscultation. Breath sounds equal bilaterally. GASTROINTESTINAL: Abdomen tenderness epiastric and LLQ and bilateral flank pain to percussion. MUSCULOSKELETAL: Extremities without clubbing, cyanosis, or edema. No obvious deformities. NEUROLOGICAL: Awake and alert. No obvious cranial nerve deficits. Motor grossly within normal limits. Five out of 5 muscle strength in the arms and legs. Normal speech. PSYCHIATRIC: Appropriate mood and affect; insight and judgment normal. Data Data Last Documented VS Vital Signs Date Time Temp Pulse Resp B/P (MAP) Pulse Ox O2 Delivery O2 Flow Rate FiO2 04/30/18 05:01 04/30/18 03:53 79 18 98 Room Air 04/29/18 23:38 97.6 Orders Orders Complete Blood Count With Diff (04/30/18 01:33) Comprehensive Metabolic Panel (04/30/18 01:33) Lipase (04/30/18 01:33) Urinalysis - C+S If Indicated (04/30/18 01:33) Sodium Chlor 0.9% 1000 Ml Inj (Ns 1000 M (04/30/18 01:45) Sodium Chlor 0.9% 1000 Ml Inj (Ns 1000 M (04/30/18 01:45) Metoclopramide Inj (Reglan Inj) (04/30/18 02:00) Famotidine Inj (Pepcid Inj) (04/30/18 02:00) Ketorolac Inj (Toradol Inj) (04/30/18 02:30) Morphine Inj (Morphine Inj) (04/30/18 04:00) Ondansetron Odt (Zofran Odt) (04/30/18 04:00) Labs Laboratory Tests Test 04/30/18 01:40 04/30/18 03:48 White Blood Count 4.6 TH/MM3 Red Blood Count 4.24 MIL/MM3 Hemoglobin 12.9 GM/DL Hematocrit 38.6 % Mean Corpuscular Volume 90.9 FL Mean Corpuscular Hemoglobin 30.4 PG Mean Corpuscular Hemoglobin Concent 33.4 % Red Cell Distribution Width 12.7 % Platelet Count 189 TH/MM3 Mean Platelet Volume 8.3 FL Neutrophils (%) (Auto) 56.0 % Lymphocytes (%) (Auto) 32.2 % Monocytes (%) (Auto) 9.8 % Eosinophils (%) (Auto) 1.3 % Basophils (%) (Auto) 0.7 % Neutrophils # (Auto) 2.6 TH/MM3 Lymphocytes # (Auto) 1.5 TH/MM3 Monocytes # (Auto) 0.5 TH/MM3 Eosinophils # (Auto) 0.1 TH/MM3 Basophils # (Auto) 0.0 TH/MM3 CBC Comment DIFF FINAL Differential Comment Blood Urea Nitrogen 11 MG/DL Creatinine 0.79 MG/DL Random Glucose 69 MG/DL Total Protein 7.8 GM/DL Albumin 3.8 GM/DL Calcium Level 8.7 MG/DL Alkaline Phosphatase 110 U/L Aspartate Amino Transf (AST/SGOT) 23 U/L Alanine Aminotransferase (ALT/SGPT) 25 U/L Total Bilirubin 0.3 MG/DL Sodium Level 138 MEQ/L Potassium Level 3.2 MEQ/L Chloride Level 102 MEQ/L Carbon Dioxide Level 26.8 MEQ/L Anion Gap 9 MEQ/L Estimat Glomerular Filtration Rate 98 ML/MIN Lipase 291 U/L Urine Color Straw Urine Turbidity CLEAR Urine pH 6.0 Urine Specific [place] 1.002 Urine Protein NEG mg/dL Urine Glucose (UA) NEG mg/dL Urine Ketones NEG mg/dL Urine Occult Blood NEG Urine Nitrite NEG Urine Bilirubin NEG Urine Urobilinogen LESS THAN 2 mg/dL Urine Leukocyte Esterase NEG Urine RBC LESS THAN 1 /hpf Urine WBC 1 /hpf Urine Squamous Epithelial Cells 2 /hpf Microscopic Urinalysis Comment CULT NOT INDICATED MDM Medical Decision Making Medical Screen Exam Complete: Yes Emergency Medical Condition: Yes Medical Record Reviewed: Yes Differential Diagnosis renal colic UTI mesenteric adenitis, pyelonephritis other Narrative Course Urine negative and labs neagtive and pt safe follow up as outpt Diagnosis Primary Impression: Abdominal pain Qualified Codes: R10.13 - Epigastric pain Patient Instructions: Abdominal Pain (ED), Acute Nausea and Vomiting (ED), General Instructions Scripts Famotidine (Pepcid) 20 Mg Tab 20 MG PO BID, #20 TAB 0 Refills Prov: Tobias Talamantes MD 04/30/18 Ondansetron Odt (Zofran Odt) 4 Mg Tab 4 MG SL Q6HR Y for Nausea/Vomiting, #12 TAB 0 Refills Prov: Tobias Talamantes MD 04/30/18 Ibuprofen (Ibuprofen) 600 Mg Tab 600 MG PO Q6H Y for Pain/Inflammation, #40 TAB 0 Refills Prov: Tobias Talamantes MD 04/30/18 Disposition: 01 DISCHARGE HOME Condition: Good Tobias Talamantes MD Apr 30, 2018 02:54
[2018-04-30 03:53] VITALS: BP 119/57; PULSE 79; RESP 18; O2SAT 98
[2018-04-30] MEDS ORDERED: ONDANSETRON ODT 4 MG TAB PO ONE (04:00)
[2018-04-30] MEDS ORDERED: MORPHINE SULFATE 4 MG/ML INJ IV PUSH ONE (04:00)
[2018-04-30 04:06] LABS: BILIRUBIN, URINE NEG (NEG); BLOOD, URINE NEG (NEG); GLUCOSE,URINE NEG (NEG); KETONE, URINE NEG (NEG); NITRITE,URINE NEG (NEG); SQUAMOUS EPITHELIAL CELL URINE 2 /hpf (0-5); URINE COLOR Straw (YELLW/STRAW); URINE LEUKOCYTE ESTERASE NEG (NEG)
[2018-04-30] MEDS ORDERED: ZOFR4TAB3 SL (05:06)
[2018-04-30] MEDS ORDERED: FAMO1TAB37 PO (05:06)
[2018-04-30] MEDS ORDERED: IBUP-232 PO (05:06)
== END 2018-04-30 05:16 | disposition home or self-care (01) ==
LOC: NEPE 23:37
DX: R10.13 Epigastric pain (principal); R11.2 Nausea with vomiting, unspecified; J45.909 Unspecified asthma, uncomplicated; K21.9 Gastro-esophageal reflux disease without esophagitis; E07.9 Disorder of thyroid, unspecified; F12.90 Cannabis use, unspecified, uncomplicated; Z79.01 Long term (current) use of anticoagulants; Z86.73 Personal history of transient ischemic attack (TIA), and cerebral infarction without residual deficits
CPT/HCPCS: 80053; 81001; 83690; 85025; 96365; 96375; 99284; J1885; J2270; J2765; J7030